=== PATIENT | male | born 1945 | race Two or more races ===

== ENCOUNTER 2020-02-20 04:41 | Inpatient (IN) | payer MEDICARE, OTHER ==
[~2020-02-20] VITALS: Ht 170.2 cm; Wt 95.7 kg
--- NOTE | 2020-02-20 05:12 | NUR ---
at bedside for assessment
[2020-02-20] MEDS ORDERED: CITA40TA11 PO (05:23)
[2020-02-20] MEDS ORDERED: NAPR-1009 PO (05:23)
[2020-02-20] MEDS ORDERED: ASPI81TA31 PO (05:23)
[2020-02-20] MEDS ORDERED: POTA25PA PO (05:23)
[2020-02-20] MEDS ORDERED: OMEP20TA5 PO (05:23)
[2020-02-20] MEDS ORDERED: IV NORMAL SALINE 1000 ML BAG IV ONE (05:45)
[2020-02-20] MEDS ORDERED: DEXAMETHASONE SOD PHOSPHATE 4 MG INJ IV ONE (06:30)
[2020-02-20] MEDS ORDERED: DEXAMETHASONE SOD PHOSPHATE 10 MG INJ ONE (06:31)
[2020-02-20 06:55] LABS: BASOPHILS % (AUTO) 0.5 % (0.0-2.0); EOSINOPHILS # (AUTO) 0.1 K/uL (0.0-0.7); EOSINOPHILS % (AUTO) 0.7 % (0.0-7.0); HEMATOCRIT 41.9 % (36.7-47.1); HEMOGLOBIN 14.4 g/dL (12.5-16.3); LYMPHOCYTES # (AUTO) 0.3 K/uL (20.0-40.0); LYMPHOCYTES % (AUTO) 3.7 % (20.5-51.5); MEAN CORPUSCULAR HGB CONC 34 g/dL (32.5-36.3); MEAN CORPUSCULAR VOLUME 93.4 fL (73.0-96.2); MONOCYTES # (AUTO) 0.4 K/uL (2.0-10.0); NEUTROPHILS # (AUTO) 6.7 K/uL (1.8-8.9); NEUTROPHILS % (AUTO) 90.1 % (38.5-71.5); PLATELET COUNT (AUTO) 158 K/uL (152-348); RED BLOOD CELL COUNT(AUTO) 4.49 MIL/uL (4.06-5.63); WHITE BLOOD COUNT (AUTO) 7.5 K/uL (3.6-10.2)
[2020-02-20] MEDS ORDERED: AZITHROMYCIN IV 500 MG in IV DEXTROSE 5% 250 ML IV ONE (07:00)
[2020-02-20] MEDS ORDERED: CEFTRIAXONE 1 G in IV DEXTROSE 5% 50 ML IV ONE (07:00)
--- NOTE | 2020-02-20 07:09 | NUR ---
Patient put on 3L Nasal Canula - Saturating at 93% - Safety measures in place - No acute distress
[2020-02-20 07:27] LABS: BILIRUBIN,DIRECT 0.2 mg/dL (0.0-0.2); BILIRUBIN,TOTAL 0.4 mg/dL (0.2-1.0); POTASSIUM 3.7 mmol/L (3.5-5.1); TOTAL PROTEIN, SERUM 7.3 g/dL (6.4-8.2)
--- NOTE | 2020-02-20 08:00 | NUR ---
Pt resting in rney with NAD noted.
[2020-02-20] MEDS ORDERED: AZITHROMYCIN 500MG/ D5W 250ML IVPB **ER PYXIS ONLY IV ONE (08:03)
[2020-02-20] MEDS ORDERED: CEFTRIAXONE /D5W 50ML IVPB **ER PYXIS IV ONE (08:03)
[2020-02-20] MEDS ORDERED: ENOXAPARIN SODIUM 80 MG/0.8 ML DISP.SYRIN SQ ONE ×2 (09:00→09:57)
--- NOTE | 2020-02-20 12:00 | NUR ---
Pt eating lunch, NAD noted.
--- NOTE | 2020-02-20 13:45 | NUR ---
Per ER admitting, still waiting for auth from pt's HMO for admission.
--- NOTE | 2020-02-20 14:00 | NUR ---
Dr. Lock spoke with Keisha Jenkins and pt was accepted for tele admission. No tele beds available, pt will be placed in a trans bed and held in ER.
--- NOTE | 2020-02-20 16:00 | NUR ---
Pt resting with NAD noted.
[2020-02-20] MEDS ORDERED: ACETAMINOPHEN 325 MG TABLET ONE (17:47)
--- NOTE | 2020-02-20 17:50 | NUR ---
Pt c/o headache, medicated with Tylenol prn as ordered.
--- NOTE | 2020-02-20 19:16 | NUR ---
Patient noted on three liters of oxygen via nasal cannula saturating 95%
--- NOTE | 2020-02-21 01:17 | NUR ---
Patient noted resting in bed, no sings of distress noted
--- NOTE | 2020-02-21 07:20 | NUR ---
Pt was desaturating while on NC, so pt placed on NRM at 15 lpm. Saturation improved.
[2020-02-21 07:53] LABS: HEMATOCRIT 40.9 % (36.7-47.1); HEMOGLOBIN 13.9 g/dL (12.5-16.3); LYMPHOCYTES # (AUTO) 0.3 K/uL (20.0-40.0); LYMPHOCYTES % (AUTO) 2.7 % (20.5-51.5); MEAN CORPUSCULAR HEMOGLOBIN 31.9 uug (23.8-33.4); MEAN CORPUSCULAR HGB CONC 34 g/dL (32.5-36.3); MEAN CORPUSCULAR VOLUME 93.6 fL (73.0-96.2); MONOCYTES # (AUTO) 0.4 K/uL (2.0-10.0); MONOCYTES % (AUTO) 3.2 % (0.0-11.0); NEUTROPHILS # (AUTO) 11.9 K/uL (1.8-8.9); NEUTROPHILS % (AUTO) 94.1 % (38.5-71.5); PLATELET COUNT (AUTO) 184 K/uL (152-348); RED BLOOD CELL COUNT(AUTO) 4.37 MIL/uL (4.06-5.63); WHITE BLOOD COUNT (AUTO) 12.7 K/uL (3.6-10.2)
[2020-02-21] MEDS ORDERED: ASPIRIN 81 MG TAB.CHEW ONE (08:26)
[2020-02-21] MEDS ORDERED: ENOXAPARIN SODIUM 40 MG/0.4 ML DISP.SYRIN SQ ONE (08:26)
[2020-02-21] MEDS ORDERED: AZITHROMYCIN 250 MG TABLET ONE (08:27)
[2020-02-21] MEDS ORDERED: PANTOPRAZOLE SODIUM 40 MG TABLET.DR PO ONE (08:27)
[2020-02-21] MEDS ORDERED: DEXAMETHASONE SOD PHOSPHATE 4 MG INJ ONE (08:27)
[2020-02-21 08:28] LABS: BILIRUBIN,TOTAL 0.4 mg/dL (0.2-1.0); MAGNESIUM 1.9 mg/dL (1.8-2.4); POTASSIUM 4.2 mmol/L (3.5-5.1); TOTAL PROTEIN, SERUM 7.5 g/dL (6.4-8.2)
[2020-02-21 08:31] LABS: THYROID STIMULATING HORMONE 0.554 mIU/mL (0.358-3.740)
[2020-02-21] MEDS ORDERED: Medication Not On Formulary EA (Omeprazole 20 MG) PO SCH (09:00)
[2020-02-21] MEDS ORDERED: CEFTRIAXONE /D5W 50ML IVPB **ER PYXIS IV ONE (09:08)
[2020-02-21] MEDS: ENOXAPARIN SODIUM 40 MG/0.4 ML DISP.SYRIN SQ SCH (09:44)
[2020-02-21] MEDS: PANTOPRAZOLE SODIUM 40 MG TABLET.DR PO SCH (09:45)
[2020-02-21] MEDS: CEFTRIAXONE 1 G in IV DEXTROSE 5% 50 ML IV SCH (09:45)
--- NOTE | 2020-02-21 09:45 | NUR ---
Pt given Breakfast tray. No current complaints, no distress noted. Pt desaturates to 70's when mask off (eg eating), but climbs back to mid 90's when replaced.
[2020-02-21] MEDS: DEXAMETHASONE SOD PHOSPHATE 4 MG INJ IV SCH (09:47)
[2020-02-21] MEDS: ASPIRIN 81 MG TAB.CHEW PO SCH (09:47)
[2020-02-21] MEDS: AZITHROMYCIN 250 MG TABLET PO SCH (09:48)
[2020-02-21] MEDS ORDERED: ACETAMINOPHEN 325 MG TABLET ONE (13:20)
[2020-02-21] MEDS ORDERED: REMDESIVIR (CHARGED) 200 MG in IV NORMAL SALINE 210 ML IV ONE (14:00)
[2020-02-21] MEDS: ACETAMINOPHEN 325 MG TABLET PO PRN (14:03)
--- NOTE | 2020-02-21 14:35 | NUR ---
Pt c/o CP when eating and/or coughing, 9-10/10, same as at breakfast. Administered 650 mg Tylenol, pain dropped to 8/10. Spoke with CHRISTINA Valdes, she'll put in orders including EKG, done.
--- NOTE | 2020-02-21 19:14 | NUR ---
recieved patient in shift report
[2020-02-22 06:30] LABS: HEMATOCRIT 40.2 % (36.7-47.1); HEMOGLOBIN 13.5 g/dL (12.5-16.3); LYMPHOCYTES # (AUTO) 0.3 K/uL (20.0-40.0); LYMPHOCYTES % (AUTO) 2.6 % (20.5-51.5); MEAN CORPUSCULAR HEMOGLOBIN 31.2 uug (23.8-33.4); MEAN CORPUSCULAR HGB CONC 34 g/dL (32.5-36.3); MEAN CORPUSCULAR VOLUME 92.9 fL (73.0-96.2); MONOCYTES # (AUTO) 0.8 K/uL (2.0-10.0); MONOCYTES % (AUTO) 6.3 % (0.0-11.0); NEUTROPHILS # (AUTO) 11.6 K/uL (1.8-8.9); NEUTROPHILS % (AUTO) 91.1 % (38.5-71.5); PLATELET COUNT (AUTO) 202 K/uL (152-348); RED BLOOD CELL COUNT(AUTO) 4.33 MIL/uL (4.06-5.63); WHITE BLOOD COUNT (AUTO) 12.8 K/uL (3.6-10.2)
[2020-02-22 06:55] LABS: BILIRUBIN,DIRECT 0.1 mg/dL (0.0-0.2); BILIRUBIN,TOTAL 0.7 mg/dL (0.2-1.0); POTASSIUM 4.5 mmol/L (3.5-5.1); TOTAL PROTEIN, SERUM 7.3 g/dL (6.4-8.2)
[2020-02-22] MEDS ORDERED: PANTOPRAZOLE SODIUM 40 MG TABLET.DR PO ONE (07:27)
[2020-02-22] MEDS: PANTOPRAZOLE SODIUM 40 MG TABLET.DR PO SCH (07:34)
[2020-02-22] MEDS ORDERED: ACETAMINOPHEN 325 MG TABLET ONE ×3 (07:52→21:27)
[2020-02-22] MEDS ORDERED: CEFTRIAXONE /D5W 50ML IVPB **ER PYXIS IV ONE (07:53)
[2020-02-22] MEDS: CEFTRIAXONE 1 G in IV DEXTROSE 5% 50 ML IV SCH (07:58)
[2020-02-22] MEDS: ACETAMINOPHEN 325 MG TABLET PO PRN ×3 (07:59→21:55)
--- NOTE | 2020-02-22 08:11 | NUR ---
PT IS RESTING IN BED. NO S/S OF ACUTE DISTRESS.
[2020-02-22] MEDS ORDERED: DEXAMETHASONE SOD PHOSPHATE 10 MG INJ ONE (08:27)
[2020-02-22] MEDS ORDERED: ASPIRIN 81 MG TAB.CHEW ONE (08:28)
[2020-02-22] MEDS ORDERED: ENOXAPARIN SODIUM 40 MG/0.4 ML DISP.SYRIN SQ ONE (08:28)
[2020-02-22] MEDS ORDERED: AZITHROMYCIN 250 MG TABLET ONE (08:28)
[2020-02-22] MEDS: AZITHROMYCIN 250 MG TABLET PO SCH (09:26)
[2020-02-22] MEDS: DEXAMETHASONE SOD PHOSPHATE 4 MG INJ IV SCH (09:26)
[2020-02-22] MEDS: ASPIRIN 81 MG TAB.CHEW PO SCH (09:26)
[2020-02-22] MEDS: ENOXAPARIN SODIUM 40 MG/0.4 ML DISP.SYRIN SQ SCH (09:28)
--- NOTE | 2020-02-22 10:56 | NUR ---
PT IS RESTING IN BED. ТАТЬЯНА MCKNIGHT NP EVALUATED THE PT.
[2020-02-22] MEDS: MORPHINE SULFATE 2 MG/1 ML DISP.SYRIN IV PRN (11:15)
[2020-02-22] MEDS: ONDANSETRON 4 MG/2 ML VIAL IV PRN (11:16)
[2020-02-22] MEDS ORDERED: ONDANSETRON 4 MG/2 ML VIAL ONE (11:22)
[2020-02-22] MEDS ORDERED: REMDESIVIR (CHARGED) 100 MG in IV NORMAL SALINE 230 ML IV SCH (14:00)
[2020-02-22] MEDS: REMDESIVIR (CHARGED) 100 MG in IV NORMAL SALINE 100 ML IV SCH (14:29)
--- NOTE | 2020-02-22 19:14 | NUR ---
Received report from YAZ Soriano for continuity of care.
[2020-02-22] MEDS: ALBUTEROL SULFATE 8 GM HFA.AER.AD IH PRN (20:08)
--- NOTE | 2020-02-22 21:33 | NUR ---
Patient repositioned on right side instead of semi-fowlers. Patient oxygenation went from 85% to 94% on NRB/NC combo. Will continue to monitor patient and reposition as needed.
[2020-02-23] MEDS: ALBUTEROL SULFATE 8 GM HFA.AER.AD IH PRN (01:02)
[2020-02-23] MEDS: MORPHINE SULFATE 2 MG/1 ML DISP.SYRIN IV PRN (01:07)
[2020-02-23] MEDS: ONDANSETRON 4 MG/2 ML VIAL IV PRN (01:08)
[2020-02-23] MEDS ORDERED: ONDANSETRON 4 MG/2 ML VIAL ONE (01:11)
[2020-02-23] MEDS ORDERED: MORPHINE SULFATE 2 MG/1 ML DISP.SYRIN ONE (01:12)
--- NOTE | 2020-02-23 05:40 | NUR ---
JUDY Jaime found patient on floor with urinal in his hand. Patient had NRB, and NC Patient unable to verbalize events. Roger Peterson DNP made aware. Requested order for a CT Head, to r/o acute bleed. Patient unable to answer questions efficiently after incident.
[2020-02-23 06:06] LABS: BASOPHILS # (AUTO) 0.1 K/uL (0.0-8.0); BASOPHILS % (AUTO) 0.7 % (0.0-2.0); HEMATOCRIT 43.6 % (36.7-47.1); HEMOGLOBIN 14.6 g/dL (12.5-16.3); LYMPHOCYTES # (AUTO) 1.7 K/uL (20.0-40.0); LYMPHOCYTES % (AUTO) 13.7 % (20.5-51.5); MEAN CORPUSCULAR HEMOGLOBIN 31.8 uug (23.8-33.4); MEAN CORPUSCULAR HGB CONC 33 g/dL (32.5-36.3); MEAN CORPUSCULAR VOLUME 95.2 fL (73.0-96.2); MONOCYTES # (AUTO) 0.9 K/uL (2.0-10.0); MONOCYTES % (AUTO) 7.5 % (0.0-11.0); NEUTROPHILS # (AUTO) 9.8 K/uL (1.8-8.9); NEUTROPHILS % (AUTO) 78.1 % (38.5-71.5); PLATELET COUNT (AUTO) 243 K/uL (152-348); RED BLOOD CELL COUNT(AUTO) 4.58 MIL/uL (4.06-5.63); WHITE BLOOD COUNT (AUTO) 12.6 K/uL (3.6-10.2)
[2020-02-23 06:12] LABS: BILIRUBIN,DIRECT 0.2 mg/dL (0.0-0.2); BILIRUBIN,TOTAL 0.6 mg/dL (0.2-1.0); CREATININE 1.2 mg/dL (0.6-1.3); POTASSIUM 3.8 mmol/L (3.5-5.1); TOTAL PROTEIN, SERUM 7.6 g/dL (6.4-8.2)
--- NOTE | 2020-02-23 06:49 | NUR ---
Spoke with Roger Peterson DNP for request to place patient on BI-PAP. There are no available versaflow machines. Requested to see if we can retrieve more for utilization.
[2020-02-23] MEDS: PANTOPRAZOLE SODIUM 40 MG TABLET.DR PO SCH (07:00)
--- NOTE | 2020-02-23 07:07 | NUR ---
Report given to YAZ Soriano for continuity of care.
[2020-02-23] MEDS ORDERED: PANTOPRAZOLE SODIUM 40 MG TABLET.DR PO ONE (07:53)
[2020-02-23] MEDS ORDERED: DEXAMETHASONE SOD PHOSPHATE 10 MG INJ ONE (07:58)
[2020-02-23] MEDS ORDERED: ASPIRIN 81 MG TAB.CHEW ONE (07:58)
[2020-02-23] MEDS ORDERED: AZITHROMYCIN 250 MG TABLET ONE (07:59)
[2020-02-23] MEDS ORDERED: ENOXAPARIN SODIUM 40 MG/0.4 ML DISP.SYRIN SQ ONE (07:59)
[2020-02-23] MEDS: CEFTRIAXONE 1 G in IV DEXTROSE 5% 50 ML IV SCH (08:00)
[2020-02-23] MEDS ORDERED: CEFTRIAXONE /D5W 50ML IVPB **ER PYXIS IV ONE (08:10)
[2020-02-23] MEDS: ENOXAPARIN SODIUM 40 MG/0.4 ML DISP.SYRIN SQ SCH (09:12)
[2020-02-23] MEDS: ASPIRIN 81 MG TAB.CHEW PO SCH (09:12)
[2020-02-23] MEDS: AZITHROMYCIN 250 MG TABLET PO SCH (09:12)
[2020-02-23] MEDS: DEXAMETHASONE SOD PHOSPHATE 4 MG INJ IV SCH (09:12)
--- NOTE | 2020-02-23 10:11 | NUR ---
CHRISTINA MCKNIGHT EVALUATED THE PT. PT IS RESTING IN BED COMFORTABLY. CONTINUE TO MONITOR THE PT.
--- NOTE | 2020-02-23 11:17 | NUR ---
0700 PT PLACED ON BIPAP /8/18/100%. SPO2 WITHIN NORMAL LIMITS ON BIPAP 1030 BIPAP REMOVED AND PLACED ON 100% NRB MASK. SPO2 AROUND 80-85% 1045 PT PLACED ON VAPOTHERM 100% 40L WITH 100% NRB MASK AND SPO2 BACK WITHIN NORMAL RANGE. PT IS AWAKE ALERT RESPONSIVE. WILL CONTINUE TO MONITOR
[2020-02-23] MEDS: REMDESIVIR (CHARGED) 100 MG in IV NORMAL SALINE 100 ML IV SCH (14:50)
--- NOTE | 2020-02-23 18:58 | NUR ---
report given to taurus taylor.
[2020-02-24 06:02] LABS: WHITE BLOOD COUNT (AUTO) 9.5 K/uL (3.6-10.2)
[2020-02-24 06:03] LABS: BASOPHILS # (AUTO) 0.1 K/uL (0.0-8.0); BASOPHILS % (AUTO) 0.9 % (0.0-2.0); HEMATOCRIT 40.4 % (36.7-47.1); LYMPHOCYTES # (AUTO) 0.4 K/uL (20.0-40.0); LYMPHOCYTES % (AUTO) 4.4 % (20.5-51.5); MEAN CORPUSCULAR HGB CONC 35 g/dL (32.5-36.3); MEAN CORPUSCULAR VOLUME 92.5 fL (73.0-96.2); MONOCYTES # (AUTO) 0.6 K/uL (2.0-10.0); MONOCYTES % (AUTO) 6.6 % (0.0-11.0); NEUTROPHILS # (AUTO) 8.4 K/uL (1.8-8.9); NEUTROPHILS % (AUTO) 88.1 % (38.5-71.5); PLATELET COUNT (AUTO) 199 K/uL (152-348); RED BLOOD CELL COUNT(AUTO) 4.36 MIL/uL (4.06-5.63)
[2020-02-24 06:19] LABS: BILIRUBIN,DIRECT 0.2 mg/dL (0.0-0.2); BILIRUBIN,TOTAL 0.6 mg/dL (0.2-1.0); CREATININE 0.9 mg/dL (0.6-1.3); POTASSIUM 4.6 mmol/L (3.5-5.1); TOTAL PROTEIN, SERUM 6.8 g/dL (6.4-8.2)
--- NOTE | 2020-02-24 08:00 | NUR ---
Pt resting in bed, pt. c/o FRAGOSO -- pain radiates down back of neck, no distress noted.
[2020-02-24] MEDS: PANTOPRAZOLE SODIUM 40 MG TABLET.DR PO SCH (08:15)
[2020-02-24] MEDS ORDERED: ASPIRIN 81 MG TAB.CHEW ONE (09:12)
[2020-02-24] MEDS ORDERED: ENOXAPARIN SODIUM 40 MG/0.4 ML DISP.SYRIN SQ ONE (09:12)
[2020-02-24] MEDS ORDERED: CEFTRIAXONE /D5W 50ML IVPB **ER PYXIS IV ONE (09:13)
[2020-02-24] MEDS ORDERED: AZITHROMYCIN 250 MG TABLET ONE (09:13)
[2020-02-24] MEDS ORDERED: DEXAMETHASONE SOD PHOSPHATE 4 MG INJ ONE (09:13)
[2020-02-24] MEDS: ASPIRIN 81 MG TAB.CHEW PO SCH (09:45)
[2020-02-24] MEDS: AZITHROMYCIN 250 MG TABLET PO SCH (09:45)
[2020-02-24] MEDS: DEXAMETHASONE SOD PHOSPHATE 4 MG INJ IV SCH (09:45)
[2020-02-24] MEDS: ENOXAPARIN SODIUM 40 MG/0.4 ML DISP.SYRIN SQ SCH (09:45)
[2020-02-24] MEDS: MORPHINE SULFATE 2 MG/1 ML DISP.SYRIN IV PRN (12:42)
[2020-02-24] MEDS ORDERED: MORPHINE SULFATE 2 MG/1 ML DISP.SYRIN ONE (12:55)
[2020-02-24] MEDS: REMDESIVIR (CHARGED) 100 MG in IV NORMAL SALINE 100 ML IV SCH (14:23)
--- NOTE | 2020-02-24 14:38 | NUR ---
Placed pt on bedpan, 1 solid BM.
--- NOTE | 2020-02-24 19:00 | NUR ---
Received report from Axel Nieves RN.
--- NOTE | 2020-02-25 06:52 | NUR ---
Report given to Bo brooks.
[2020-02-25] MEDS: PANTOPRAZOLE SODIUM 40 MG TABLET.DR PO SCH (07:15)
[2020-02-25] MEDS ORDERED: PANTOPRAZOLE SODIUM 40 MG TABLET.DR PO ONE (07:18)
[2020-02-25 07:23] LABS: BASOPHILS # (AUTO) 0.1 K/uL (0.0-8.0); BASOPHILS % (AUTO) 0.6 % (0.0-2.0); EOSINOPHILS % (AUTO) 0.1 % (0.0-7.0); HEMATOCRIT 41.3 % (36.7-47.1); HEMOGLOBIN 13.9 g/dL (12.5-16.3); LYMPHOCYTES # (AUTO) 0.4 K/uL (20.0-40.0); MEAN CORPUSCULAR HEMOGLOBIN 31.2 uug (23.8-33.4); MEAN CORPUSCULAR HGB CONC 34 g/dL (32.5-36.3); MONOCYTES # (AUTO) 0.8 K/uL (2.0-10.0); MONOCYTES % (AUTO) 5.8 % (0.0-11.0); NEUTROPHILS # (AUTO) 12.4 K/uL (1.8-8.9); NEUTROPHILS % (AUTO) 90.5 % (38.5-71.5); PLATELET COUNT (AUTO) 213 K/uL (152-348); RED BLOOD CELL COUNT(AUTO) 4.44 MIL/uL (4.06-5.63); WHITE BLOOD COUNT (AUTO) 13.7 K/uL (3.6-10.2)
[2020-02-25 08:05] LABS: BILIRUBIN,DIRECT 0.2 mg/dL (0.0-0.2); BILIRUBIN,TOTAL 0.7 mg/dL (0.2-1.0); CREATININE 0.9 mg/dL (0.6-1.3); TOTAL PROTEIN, SERUM 6.7 g/dL (6.4-8.2)
--- NOTE | 2020-02-25 08:25 | NUR ---
DR. POP ENGLAND FROM IMAGING CALLED AND SAID THAT COMPARED TO LAST IMAGES, PT'S UPPER MEDIASTINAL CONTOUR HAS WIDENED AND SHE SUGGESTED CHEST CT.
--- NOTE | 2020-02-25 08:29 | NUR ---
Pt is resting in bed comfortably. Abdullahi PROGRESS MAN was called according to request of radiology Kiley Burger to report AP radiology of the chest.
[2020-02-25] MEDS ORDERED: ASPIRIN 81 MG TAB.CHEW ONE (08:49)
[2020-02-25] MEDS ORDERED: DEXAMETHASONE SOD PHOSPHATE 10 MG INJ ONE (08:49)
[2020-02-25] MEDS ORDERED: ENOXAPARIN SODIUM 40 MG/0.4 ML DISP.SYRIN SQ ONE (08:50)
[2020-02-25] MEDS: DEXAMETHASONE SOD PHOSPHATE 4 MG INJ IV SCH (08:51)
[2020-02-25] MEDS: ASPIRIN 81 MG TAB.CHEW PO SCH (08:51)
[2020-02-25] MEDS: ENOXAPARIN SODIUM 40 MG/0.4 ML DISP.SYRIN SQ SCH (09:02)
[2020-02-25] MEDS: REMDESIVIR (CHARGED) 100 MG in IV NORMAL SALINE 100 ML IV SCH (14:00)
--- NOTE | 2020-02-25 14:48 | NUR ---
DR CHILDS EVALUATED THE PT.
--- NOTE | 2020-02-25 16:39 | NUR ---
REPORT WAS GIVEN TO SHIPPING ASSISTANT. PT WAS TRANSFERED TO ROOM #314.
--- NOTE | 2020-02-25 17:00 | NUR ---
RECEIVED PATIENT FROM ED, TRANSPORTED VIA HOSPITAL BED. VSS. PATIENT AWAKE, ALERT AND ORIENTED X 3. ON HIGH FLOW NC 40L O2, SATURATING 94-95%. BELONGINGS AT BEDSIDE AND CONFIRMED ON BELONGINGS LIST. NO S/S OF DISTRESS NOTED. ORIENTED PATIENT TO LOCATION OF TV REMOTE, CALL LIGHT AND URINAL AT BEDSIDE. SAFETY PRECAUTIONS IN PLACE. ALL NEEDS MET. WILL CONTINUE TO MONITOR.
[2020-02-25 17:08] VITALS: BP 121/73
[2020-02-25 20:41] VITALS: BP 106/70
[2020-02-25] MEDS: ACETAMINOPHEN 325 MG TABLET PO PRN (23:07)
[2020-02-26 01:44] VITALS: BP 94/56
[2020-02-26 06:34] VITALS: BP 115/63
[2020-02-26] MEDS: PANTOPRAZOLE SODIUM 40 MG TABLET.DR PO SCH (06:41)
[2020-02-26 07:23] LABS: CREATININE 0.9 mg/dL (0.6-1.3)
[2020-02-26 07:35] LABS: BASOPHILS % (AUTO) 0.1 % (0.0-2.0); EOSINOPHILS % (AUTO) 0.2 % (0.0-7.0); HEMATOCRIT 43.1 % (36.7-47.1); HEMOGLOBIN 14.1 g/dL (12.5-16.3); LYMPHOCYTES # (AUTO) 0.4 K/uL (20.0-40.0); LYMPHOCYTES % (AUTO) 2.9 % (20.5-51.5); MEAN CORPUSCULAR HEMOGLOBIN 30.4 uug (23.8-33.4); MEAN CORPUSCULAR HGB CONC 33 g/dL (32.5-36.3); MEAN CORPUSCULAR VOLUME 93.1 fL (73.0-96.2); MONOCYTES # (AUTO) 0.7 K/uL (2.0-10.0); MONOCYTES % (AUTO) 4.4 % (0.0-11.0); NEUTROPHILS # (AUTO) 14.3 K/uL (1.8-8.9); NEUTROPHILS % (AUTO) 92.4 % (38.5-71.5); PLATELET COUNT (AUTO) 233 K/uL (152-348); RED BLOOD CELL COUNT(AUTO) 4.63 MIL/uL (4.06-5.63); WHITE BLOOD COUNT (AUTO) 15.5 K/uL (3.6-10.2)
[2020-02-26 08:00] VITALS: BP 122/53
[2020-02-26] MEDS: ASPIRIN 81 MG TAB.CHEW PO SCH (08:39)
[2020-02-26] MEDS: DEXAMETHASONE SOD PHOSPHATE 4 MG INJ IV SCH (08:40)
[2020-02-26] MEDS: ENOXAPARIN SODIUM 40 MG/0.4 ML DISP.SYRIN SQ SCH (08:40)
[2020-02-26] MEDS: CEFTRIAXONE 1 G in IV DEXTROSE 5% 50 ML IV SCH (10:51)
[2020-02-26 12:00] VITALS: BP 116/68
--- NOTE | 2020-02-26 17:52 | NUR ---
patient is alert, oriented x3, verbally responsive, continue on high flow and nonrebreather, able to transfer himself with one person assist from bed to bedside commode, and vise versa, tolerated meals fairly without nonrebreather mask.
[2020-02-26 20:31] VITALS: BP 120/69
--- NOTE | 2020-02-26 21:43 | NUR ---
Received pt in bed sleeping, easily arousable. patient monitor displayed sinus dasha low as 31. Notified Denver Glez NP. Stat EKG ordered. Results read back to praveen Glez HR currently 61 on the monitor. No new orders at this time. Will continue to monitor on tele per IT QUALITY ANALYST orders
[2020-02-27 00:26] VITALS: BP 121/71
[2020-02-27 04:25] VITALS: BP 136/72
[2020-02-27] MEDS: PANTOPRAZOLE SODIUM 40 MG TABLET.DR PO SCH (06:22)
--- NOTE | 2020-02-27 06:40 | NUR ---
Pt slept intermittently. No s/s of acute distress noted. Afebrile. Pt on High Flow and NRBM O2 93-95%. Pt removes high flow NC intermittently, O2 saturation drops to 86%. Provided pt with education in regards to using both oxygen sources and benefits of keeping them on, pt verbalizes understanding. monitoring specialist on, Sinus dasha high 50s and NSR throughout night. Right hand IV patent and intact. Safety measures and isolation precautions observed and in place. will endorse to oncoming shift.
[2020-02-27 06:49] LABS: POTASSIUM 3.9 mmol/L (3.5-5.1)
[2020-02-27 06:53] LABS: BASOPHILS % (AUTO) 0.1 % (0.0-2.0); EOSINOPHILS % (AUTO) 0.1 % (0.0-7.0); HEMATOCRIT 43.6 % (36.7-47.1); HEMOGLOBIN 14.5 g/dL (12.5-16.3); LYMPHOCYTES # (AUTO) 0.4 K/uL (20.0-40.0); LYMPHOCYTES % (AUTO) 2.2 % (20.5-51.5); MEAN CORPUSCULAR HGB CONC 33 g/dL (32.5-36.3); MEAN CORPUSCULAR VOLUME 93.3 fL (73.0-96.2); MONOCYTES # (AUTO) 0.5 K/uL (2.0-10.0); MONOCYTES % (AUTO) 2.9 % (0.0-11.0); NEUTROPHILS # (AUTO) 17.4 K/uL (1.8-8.9); NEUTROPHILS % (AUTO) 94.7 % (38.5-71.5); PLATELET COUNT (AUTO) 228 K/uL (152-348); RED BLOOD CELL COUNT(AUTO) 4.67 MIL/uL (4.06-5.63); WHITE BLOOD COUNT (AUTO) 18.3 K/uL (3.6-10.2)
--- NOTE | 2020-02-27 08:30 | NUR ---
Pt not tolerating HI FLOW. Pt restless and gasping for air with labored breathing. DENTON Goff saw patient and wants pt on BIPAP.
[2020-02-27] MEDS: ASPIRIN 81 MG TAB.CHEW PO SCH (08:59)
[2020-02-27] MEDS: DEXAMETHASONE SOD PHOSPHATE 4 MG INJ IV SCH (08:59)
[2020-02-27] MEDS: ENOXAPARIN SODIUM 40 MG/0.4 ML DISP.SYRIN SQ SCH (09:00)
[2020-02-27] MEDS: CEFTRIAXONE 1 G in IV DEXTROSE 5% 50 ML IV SCH (09:00)
--- NOTE | 2020-02-27 09:00 | NUR ---
Pt put on BIPAP 04/10 rate of 18 as per Marco A CHAWLA. 02 sat 97%. Will continue to monitor patient. Addendum: 02/27/20 at 1858 by MAGDY HO RN FIO2 of 100%
[2020-02-27 11:50] VITALS: BP 103/71
[2020-02-27 16:15] VITALS: BP 114/63
--- NOTE | 2020-02-27 17:00 | NUR ---
Pt has been tolerating BIPAP and more comfortable since BIPAP was put on this AM. Pt not restless and breathing not labored. Call light is within reach.
--- NOTE | 2020-02-27 18:42 | NUR ---
Clarified with Dr peters if convalescent plasma is still needed lab states that convalescent IND form signed by patient's initials. Per DR Peters ok to proceed with Convalescent Plasma.
[2020-02-27] MEDS: ENSURE ENLIVE (VAN) 240 ML LIQUID PO SCH (20:30)
[2020-02-27 20:32] VITALS: BP 141/75
[2020-02-28 00:38] VITALS: BP 125/77
[2020-02-28] MEDS: MORPHINE SULFATE 2 MG/1 ML DISP.SYRIN IV PRN (02:47)
[2020-02-28 04:00] VITALS: BP 122/76
[2020-02-28] MEDS: PANTOPRAZOLE SODIUM 40 MG TABLET.DR PO SCH (05:37)
[2020-02-28 06:22] LABS: BASOPHILS % (AUTO) 0.1 % (0.0-2.0); EOSINOPHILS # (AUTO) 0.1 K/uL (0.0-0.7); EOSINOPHILS % (AUTO) 0.3 % (0.0-7.0); HEMATOCRIT 45.4 % (36.7-47.1); LYMPHOCYTES # (AUTO) 0.4 K/uL (20.0-40.0); LYMPHOCYTES % (AUTO) 2.2 % (20.5-51.5); MEAN CORPUSCULAR HEMOGLOBIN 31.1 uug (23.8-33.4); MEAN CORPUSCULAR HGB CONC 33 g/dL (32.5-36.3); MEAN CORPUSCULAR VOLUME 94.3 fL (73.0-96.2); MONOCYTES # (AUTO) 0.6 K/uL (2.0-10.0); MONOCYTES % (AUTO) 3.5 % (0.0-11.0); NEUTROPHILS # (AUTO) 17.3 K/uL (1.8-8.9); NEUTROPHILS % (AUTO) 93.9 % (38.5-71.5); PLATELET COUNT (AUTO) 196 K/uL (152-348); RED BLOOD CELL COUNT(AUTO) 4.81 MIL/uL (4.06-5.63); WHITE BLOOD COUNT (AUTO) 18.4 K/uL (3.6-10.2)
[2020-02-28 06:36] LABS: BILIRUBIN,DIRECT 0.2 mg/dL (0.0-0.2); BILIRUBIN,TOTAL 0.5 mg/dL (0.2-1.0); CREATININE 0.9 mg/dL (0.6-1.3); POTASSIUM 4.7 mmol/L (3.5-5.1); TOTAL PROTEIN, SERUM 6.7 g/dL (6.4-8.2)
[2020-02-28] MEDS: ENSURE ENLIVE (VAN) 240 ML LIQUID PO SCH ×2 (09:29→17:44)
[2020-02-28] MEDS: ASPIRIN 81 MG TAB.CHEW PO SCH (09:29)
[2020-02-28] MEDS: DEXAMETHASONE SOD PHOSPHATE 4 MG INJ IV SCH (09:30)
[2020-02-28] MEDS: ENOXAPARIN SODIUM 40 MG/0.4 ML DISP.SYRIN SQ SCH (09:30)
[2020-02-28] MEDS: CEFTRIAXONE 1 G in IV DEXTROSE 5% 50 ML IV SCH (09:36)
--- NOTE | 2020-02-28 10:00 | NUR ---
Pt wanted water. Pt currently on BIPAP with sat 96% as ordered. BIPAP taken off and monitored pt on pulse ox in order for patient to drink some water. Pt desaturates to 82 % within 2 mins of having BIPAP off. Put BIPAP back and tolerating with o2 sat of 96%.
[2020-02-28 11:27] VITALS: BP 129/81
[2020-02-28 16:18] VITALS: BP 124/74
[2020-02-28] MEDS ORDERED: BISACODYL 10 MG SUPP.RECT RC PRN (16:45)
--- NOTE | 2020-02-28 19:30 | NUR ---
RECEIVED PT AWAKE, ALERT AND ORIENTEDX3. PT IN NO ACUTE DISTRESS. PT COUGHING. IV INTACT. PT ON HIGH FLOW OXYGEN. PT IN NO ACUTE DISTRESS. SAFETY AND COMFORT PROVIDED. WILL CONTINUE TO MONITOR.
[2020-02-28 20:00] VITALS: BP 129/75
[2020-02-28] MEDS: ACETAMINOPHEN 325 MG TABLET PO PRN (21:51)
[2020-02-29 00:12] VITALS: BP 120/60
[2020-02-29] MEDS: MORPHINE SULFATE 2 MG/1 ML DISP.SYRIN IV PRN ×2 (02:30→23:35)
[2020-02-29 04:00] VITALS: BP 121/72
[2020-02-29] MEDS: PANTOPRAZOLE SODIUM 40 MG TABLET.DR PO SCH (06:11)
[2020-02-29] MEDS: ACETAMINOPHEN 325 MG TABLET PO PRN (06:12)
--- NOTE | 2020-02-29 06:12 | NUR ---
PT SLEPT INTERMITTENTLY. PT IN NO ACUTE DISTRESS. PRESCRIBED MEDICATION GIVEN AND PT TOLERATED IT WELL. IV INTACT. PT GIVEN TYLENOL 650 MG PRN AT 2151HAND 0612H . MORPHINE PRN GIVEN AT 0230h . PT TOLERATED IT WELL. PT TURNED AND REPOSITIONED. PT CAN MAKE HIS NEEDS KNOWN. SAFETY AND COMFORT PROVIDED. ALL NEEDS ARE MET. WILL ENDORSE TO INCOMING NURSE FOR CONTINUITY OF CARE.
[2020-02-29 06:40] LABS: EOSINOPHILS % (AUTO) 0.2 % (0.0-7.0); HEMATOCRIT 43.3 % (36.7-47.1); HEMOGLOBIN 14.6 g/dL (12.5-16.3); LYMPHOCYTES # (AUTO) 0.3 K/uL (20.0-40.0); LYMPHOCYTES % (AUTO) 1.8 % (20.5-51.5); MEAN CORPUSCULAR HEMOGLOBIN 31.6 uug (23.8-33.4); MEAN CORPUSCULAR HGB CONC 34 g/dL (32.5-36.3); MEAN CORPUSCULAR VOLUME 93.7 fL (73.0-96.2); MONOCYTES # (AUTO) 0.6 K/uL (2.0-10.0); MONOCYTES % (AUTO) 3.4 % (0.0-11.0); NEUTROPHILS # (AUTO) 16.7 K/uL (1.8-8.9); NEUTROPHILS % (AUTO) 94.6 % (38.5-71.5); PLATELET COUNT (AUTO) 179 K/uL (152-348); RED BLOOD CELL COUNT(AUTO) 4.62 MIL/uL (4.06-5.63); WHITE BLOOD COUNT (AUTO) 17.7 K/uL (3.6-10.2)
[2020-02-29 07:13] LABS: POTASSIUM 4.4 mmol/L (3.5-5.1)
--- NOTE | 2020-02-29 07:30 | NUR ---
Received patient in bed awake, alert and oriented times 4. Patient is Cymro speaking but understands some Serbian.. He is on BIPAP 18/8 Respirations 18 at 100%. No sign of distress noted at this time. Safety precautions are in place. Will continue to monitor.
[2020-02-29] MEDS: ENSURE ENLIVE (VAN) 240 ML LIQUID PO SCH ×2 (08:28→17:07)
[2020-02-29] MEDS: ASPIRIN 81 MG TAB.CHEW PO SCH (08:29)
[2020-02-29] MEDS: DEXAMETHASONE SOD PHOSPHATE 4 MG INJ IV SCH (08:29)
[2020-02-29] MEDS: ENOXAPARIN SODIUM 40 MG/0.4 ML DISP.SYRIN SQ SCH (08:31)
[2020-02-29] MEDS: CEFTRIAXONE 1 G in IV DEXTROSE 5% 50 ML IV SCH (09:06)
[2020-02-29 11:14] VITALS: BP 115/67
[2020-02-29 12:18] LABS: ABG BASE EXCESS -1.2 mmol/L; ABG HCO3 22.6 mmol/L; ABG PH 7.427 (7.350-7.450); ABG SITE RIGHT RADIAL; ABG TOTAL HEMOGLOBIN 14.9 G/dL (13.5-18.0); COHb 1.3 % (0.5-1.5); MetHb 0.2 % (0.0-1.5); O2Hb 93.4 % (94.0-97.0); VENT MODE BIPAP
[2020-02-29 16:26] VITALS: BP 130/78
--- NOTE | 2020-02-29 19:24 | NUR ---
Pt unable to tolerate prone position. Addendum: 02/29/20 at 2042 by WYATT GASCA RN Amended: Links added.
--- NOTE | 2020-02-29 19:30 | NUR ---
Received patient lying in bed. AAOx3-4, mainly Serbian speaking. In no acute distress. Denies any pain or SOB. HOB kept elevated. O2 sat at 92-94% on high flow of O2 40% with 100% FiO2. NSR on tele at 80%. IV site on right hand intact and patent. COVID precaution initiated. Safety measure initiated and call sawyer within reached. Continue to monitor. Addendum: 02/29/20 at 0177 by WYATT GASCA RN NSR on tele at 80/min.
--- NOTE | 2020-02-29 19:41 | NUR ---
Patient is resting in bed. No sign of distress noted. Gave all medications as ordered. Safety precautions are in place. Will continue to monitor.
[2020-02-29 20:00] VITALS: BP 127/69
[2020-03-01] VITALS (10 sets, daily range): BP systolic 113–152; BP diastolic 67–87
[2020-03-01] MEDS: PANTOPRAZOLE SODIUM 40 MG TABLET.DR PO SCH (06:10)
--- NOTE | 2020-03-01 07:02 | NUR ---
AAOx3-4. In no acute distress. Denies any pain. O2 sat at 92% on high flow of O2 40% with 100% FiO2. NSR on tele at 95/min. IV site on right hand intact and patent. TKO. COVID precaution maintained. Needs attended to and met. Safety measure maintained and call sawyer within reached.
--- NOTE | 2020-03-01 07:30 | NUR ---
Received patient in bed awake, alert and oriented times 4. Patient is Sammarinese speaking but understands some Armenian. Patient is on high flow oxygen and non rebreather mask. No sign of distress noted at this time. Safety precautions are in place. Will continue to monitor.
[2020-03-01 07:53] LABS: BASOPHILS % (AUTO) 0.2 % (0.0-2.0); EOSINOPHILS % (AUTO) 0.1 % (0.0-7.0); HEMATOCRIT 43.7 % (36.7-47.1); HEMOGLOBIN 14.7 g/dL (12.5-16.3); LYMPHOCYTES # (AUTO) 0.3 K/uL (20.0-40.0); LYMPHOCYTES % (AUTO) 1.6 % (20.5-51.5); MEAN CORPUSCULAR HEMOGLOBIN 31.4 uug (23.8-33.4); MEAN CORPUSCULAR HGB CONC 34 g/dL (32.5-36.3); MEAN CORPUSCULAR VOLUME 93.2 fL (73.0-96.2); MONOCYTES # (AUTO) 0.7 K/uL (2.0-10.0); MONOCYTES % (AUTO) 3.6 % (0.0-11.0); NEUTROPHILS # (AUTO) 17.9 K/uL (1.8-8.9); NEUTROPHILS % (AUTO) 94.5 % (38.5-71.5); PLATELET COUNT (AUTO) 203 K/uL (152-348); RED BLOOD CELL COUNT(AUTO) 4.69 MIL/uL (4.06-5.63); WHITE BLOOD COUNT (AUTO) 18.9 K/uL (3.6-10.2)
[2020-03-01 08:40] LABS: BILIRUBIN,DIRECT 0.2 mg/dL (0.0-0.2); BILIRUBIN,TOTAL 0.8 mg/dL (0.2-1.0); CREATININE 0.9 mg/dL (0.6-1.3); PHOSPHOROUS 3.7 mg/dL (2.5-4.9); POTASSIUM 4.8 mmol/L (3.5-5.1); TOTAL PROTEIN, SERUM 6.6 g/dL (6.4-8.2)
[2020-03-01] MEDS: DEXAMETHASONE SOD PHOSPHATE 4 MG INJ IV SCH (08:41)
[2020-03-01] MEDS: ENSURE ENLIVE (VAN) 240 ML LIQUID PO SCH ×2 (08:41→17:44)
[2020-03-01] MEDS: ASPIRIN 81 MG TAB.CHEW PO SCH (08:41)
[2020-03-01] MEDS: ENOXAPARIN SODIUM 40 MG/0.4 ML DISP.SYRIN SQ SCH (08:42)
--- NOTE | 2020-03-01 11:50 | NUR ---
Patient desaturated and was having difficulty breathing, the CUSTOMER EXPERT called a rapid response. Patient place on BIPAP and saturated started to improve. Will continue to monitor.
[2020-03-01] MEDS ORDERED: CEFEPIME HCL 1 G in IV DEXTROSE 5% 50 ML IV SCH (12:00)
--- NOTE | 2020-03-01 12:10 | NUR ---
Patient start to desaturate again, another rapid response called. Setting on the BIPAP was changed and patient started to improve, saturation was at 97%. Patient was still anxious and agitated. Used therapeutic communication to help patient calm down. Will continue to monitor.
--- NOTE | 2020-03-01 13:10 | NUR ---
Patient complained of pain, checked eMAR and gave medication as ordered. Will continue to monitor.
[2020-03-01] MEDS: ACETAMINOPHEN 325 MG TABLET PO PRN (13:18)
[2020-03-01] MEDS: CEFEPIME HCL 2 G in IV DEXTROSE 5% 100 ML IV SCH ×2 (13:18→22:17)
--- NOTE | 2020-03-01 18:55 | NUR ---
Received telephone consent for convalescence plasma blood transfusion. Son Mike Stone gave consent and witnessed by YAZ David and Ryan. Will continue to monitor
--- NOTE | 2020-03-01 19:17 | NUR ---
Patient is resting in bed with BIPAP. Patient shows no sign of distress at this time. Gave all medications as ordered. Safety precautions are in place. Will endorse to oncoming nurse.
[2020-03-01] MEDS: IV NORMAL SALINE 250 ML IV PRN (20:45)
--- NOTE | 2020-03-01 20:45 | NUR ---
Received Pt. lying in bed, AOX3, no acute distress. On BiPap w/ rate of 20 and FIO2 of 100%. VS stable w/ NSR on monitor. Infusing Convalescent Plasma via Rt. hand 20g IV line. Left forearm IV line intact and patent. Call light within reach, all needs attended and will continue to monitor Pt.
[2020-03-01] MEDS: ENOXAPARIN SODIUM 60 MG/0.6 ML DISP.SYRIN SQ SCH (21:00)
--- NOTE | 2020-03-01 21:45 | NUR ---
Completed Convalescent Plasma without episode.
--- NOTE | 2020-03-01 22:00 | NUR ---
Ordered F/C inserted w/ 350cc output. Pt. tolerated procedure well.
[2020-03-02] VITALS (27 sets, daily range): BP systolic 90–147; BP diastolic 56–91
[2020-03-02] MEDS: CEFEPIME HCL 2 G in IV DEXTROSE 5% 100 ML IV SCH ×3 (05:13→20:33)
[2020-03-02 05:46] LABS: BASOPHILS # (AUTO) 0.1 K/uL (0.0-8.0); BASOPHILS % (AUTO) 0.4 % (0.0-2.0); EOSINOPHILS % (AUTO) 0.1 % (0.0-7.0); HEMATOCRIT 41.4 % (36.7-47.1); HEMOGLOBIN 13.5 g/dL (12.5-16.3); LYMPHOCYTES # (AUTO) 0.4 K/uL (20.0-40.0); LYMPHOCYTES % (AUTO) 1.9 % (20.5-51.5); MEAN CORPUSCULAR HEMOGLOBIN 30.6 uug (23.8-33.4); MEAN CORPUSCULAR HGB CONC 33 g/dL (32.5-36.3); MEAN CORPUSCULAR VOLUME 93.6 fL (73.0-96.2); MONOCYTES # (AUTO) 0.8 K/uL (2.0-10.0); MONOCYTES % (AUTO) 4.2 % (0.0-11.0); NEUTROPHILS # (AUTO) 17.8 K/uL (1.8-8.9); NEUTROPHILS % (AUTO) 93.4 % (38.5-71.5); PLATELET COUNT (AUTO) 184 K/uL (152-348); RED BLOOD CELL COUNT(AUTO) 4.42 MIL/uL (4.06-5.63)
[2020-03-02 06:03] LABS: CREATININE 0.8 mg/dL (0.6-1.3); MAGNESIUM 2.1 mg/dL (1.8-2.4); PHOSPHOROUS 3.6 mg/dL (2.5-4.9); POTASSIUM 4.3 mmol/L (3.5-5.1)
[2020-03-02] MEDS: PANTOPRAZOLE SODIUM 40 MG TABLET.DR PO SCH (06:12)
[2020-03-02] MEDS: ENSURE ENLIVE (VAN) 240 ML LIQUID PO SCH ×4 (07:48→17:43)
[2020-03-02] MEDS: ASPIRIN 81 MG TAB.CHEW PO SCH (07:48)
[2020-03-02] MEDS: ENOXAPARIN SODIUM 60 MG/0.6 ML DISP.SYRIN SQ SCH ×2 (07:51→20:35)
--- NOTE | 2020-03-02 09:23 | NUR ---
patient is non-compliant repeatedly trying to take off bipap mask. Explained to patient he can not keep taking it off because he desaturating quickly.
[2020-03-02] MEDS: IV D5/ 0.9% NACL 1,000 ML IV PRN (12:41)
[2020-03-02 13:49] LABS: ABG BASE EXCESS 0.5 mmol/L; ABG HCO3 25.2 mmol/L; ABG PCO2 41.1 mmHg (35.0-45.0); ABG PH 7.406 (7.350-7.450); ABG PO2 93.6 mmHg (75.0-100.0); ABG SITE RIGHT RADIAL; ABG TOTAL HEMOGLOBIN 14.8 G/dL (13.5-18.0); MetHb 0.2 % (0.0-1.5); O2Hb 96.2 % (94.0-97.0); VENT MODE BIPAP - 25/15
[2020-03-02] MEDS: LORAZEPAM 2 MG/1 ML VIAL IV PRN (19:51)
--- NOTE | 2020-03-02 19:51 | NUR ---
patient keep removing bipap ,very restless ,agitated given prn ativan and reoriented patient and advised not to remove bipap.
--- NOTE | 2020-03-02 19:51 | NUR ---
rounds made patient and in confused and keeps removing bipap reoriented with bipap and advised not to removed it . patient restless and on and off follow commands . given prn Ativan for agitation .
[2020-03-02] MEDS: MORPHINE SULFATE 2 MG/1 ML DISP.SYRIN IV PRN (21:08)
[2020-03-02] MEDS ORDERED: PHENYLEPHRINE 10 MG/1 ML VIAL ONE (21:29)
[2020-03-02] MEDS ORDERED: KETAMINE HCL 500 MG/10 ML INJ IV ONE (21:30)
--- NOTE | 2020-03-02 21:30 | NUR ---
patient agitated and desating and removing bipap unable to educated and maintain saturation 80 % called ER MD AND NOTIFY THE NEED FOR INTUBATION .SPOKED WITH EDU MATT HIS COMING .
[2020-03-02] MEDS ORDERED: KETAMINE HCL 500 MG/10 ML INJ ONE (21:32)
--- NOTE | 2020-03-02 21:40 | NUR ---
Tahira SUCCESSFULLY intubated patient ETT 7.5,23CM RATE 18,450,+8 100%.RESPIRATORY therapist collected sputum and send to lab .abg in 30 mins.called for chest xray verification of placement .
[2020-03-02] MEDS ORDERED: ETOMIDATE 20 MG/10 ML VIAL IV ONE (21:45)
[2020-03-02] MEDS ORDERED: SUCCINYLCHOLINE CHLORIDE 200 MG/10 ML VIAL IV ONE (21:45)
[2020-03-02] MEDS: PHENYLEPHRINE IV 50 MG in IV NORMAL SALINE 245 ML IV PRN (21:59)
--- NOTE | 2020-03-02 22:03 | NUR ---
0018 as per cecy KOWALSKI to advance ETT by 1cm.informed respiratory therapist . ett 7.5 24 cm .
[2020-03-02] MEDS: PROPOFOL 100 ML IV PRN (22:17)
[2020-03-02 22:28] LABS: ABG BASE EXCESS -5.4 mmol/L; ABG HCO3 21.9 mmol/L; ABG PCO2 49.4 mmHg (35.0-45.0); ABG PH 7.265 (7.350-7.450); ABG SITE LEFT BRACHIAL; ABG TOTAL HEMOGLOBIN 14.9 G/dL (13.5-18.0); COHb 1.3 % (0.5-1.5); MetHb 0.5 % (0.0-1.5); O2Hb 70.7 % (94.0-97.0); VENT MODE VENT - A/C; VT, ABG 450 mL
--- NOTE | 2020-03-02 22:35 | NUR ---
abg results dictated to cecy WETZEL with orders to increase rate 28 peep 12 repeat abg at 0700 and chest xray at 0700.
--- NOTE | 2020-03-02 22:45 | NUR ---
called patient family spoked with LOBO made aware patient got intubated and needs a PICCLINE agree with the piccline 2nd RN witness the consent . called fish housekeeper the piccline RN coming in am .
[2020-03-03] VITALS (29 sets, daily range): BP systolic 88–126; BP diastolic 45–91
[2020-03-03] MEDS: MORPHINE SULFATE 2 MG/1 ML DISP.SYRIN IV PRN (00:53)
[2020-03-03] MEDS: PROPOFOL 100 ML IV PRN ×6 (03:07→22:18)
--- NOTE | 2020-03-03 03:13 | NUR ---
tolerating vent settings saturation 93% and rr 31 . bp 93/30 on neosynephrine drip at 0.5 mcg/kg/min .f/c with adequate urinary output see i and os .no s/s of pain on propofol drip .see flow sheet .
[2020-03-03] MEDS ORDERED: PROPOFOL 100 ML ONE (03:55)
--- NOTE | 2020-03-03 04:47 | NUR ---
FAHEEM SMITH WAS ERROR, UNABLE TO UNDO.
[2020-03-03 05:36] LABS: BASOPHILS % (AUTO) 0.1 % (0.0-2.0); EOSINOPHILS # (AUTO) 0.2 K/uL (0.0-0.7); EOSINOPHILS % (AUTO) 0.8 % (0.0-7.0); HEMATOCRIT 42.6 % (36.7-47.1); LYMPHOCYTES # (AUTO) 1.1 K/uL (20.0-40.0); LYMPHOCYTES % (AUTO) 4.1 % (20.5-51.5); MEAN CORPUSCULAR HEMOGLOBIN 30.6 uug (23.8-33.4); MEAN CORPUSCULAR HGB CONC 33 g/dL (32.5-36.3); MEAN CORPUSCULAR VOLUME 93.3 fL (73.0-96.2); MONOCYTES % (AUTO) 3.7 % (0.0-11.0); NEUTROPHILS # (AUTO) 25.5 K/uL (1.8-8.9); NEUTROPHILS % (AUTO) 91.3 % (38.5-71.5); PLATELET COUNT (AUTO) 224 K/uL (152-348); RED BLOOD CELL COUNT(AUTO) 4.57 MIL/uL (4.06-5.63)
[2020-03-03] MEDS: CEFEPIME HCL 2 G in IV DEXTROSE 5% 100 ML IV SCH ×3 (05:38→20:15)
[2020-03-03 05:50] LABS: BILIRUBIN,DIRECT 0.5 mg/dL (0.0-0.2); CREATININE 1.2 mg/dL (0.6-1.3); MAGNESIUM 2.1 mg/dL (1.8-2.4); PHOSPHOROUS 3.7 mg/dL (2.5-4.9); POTASSIUM 4.5 mmol/L (3.5-5.1); TOTAL PROTEIN, SERUM 6.3 g/dL (6.4-8.2)
[2020-03-03 06:04] LABS: WHITE BLOOD COUNT (AUTO) 27.9 K/uL (3.6-10.2)
[2020-03-03 06:28] LABS: ABG BASE EXCESS -2.6 mmol/L; ABG HCO3 21.6 mmol/L; ABG PCO2 35.6 mmHg (35.0-45.0); ABG SITE RIGHT RADIAL; ABG TOTAL HEMOGLOBIN 14.2 G/dL (13.5-18.0); COHb 1.4 % (0.5-1.5); MetHb 0.3 % (0.0-1.5); O2Hb 91.5 % (94.0-97.0); VENT MODE VENT - A/C; VT, ABG 450 mL
--- NOTE | 2020-03-03 06:28 | NUR ---
weight patient via bed scale 209 lbs . initial wt is 145 lbs .
[2020-03-03] MEDS ORDERED: SUCCINYLCHOLINE CHLORIDE 200 MG/10 ML VIAL IV ONE (07:50)
[2020-03-03] MEDS ORDERED: ETOMIDATE 20 MG/10 ML VIAL IV ONE (07:50)
[2020-03-03] MEDS: PANTOPRAZOLE SODIUM 40 MG TABLET.DR PO SCH (08:35)
[2020-03-03] MEDS: ASPIRIN 81 MG TAB.CHEW PO SCH (08:35)
[2020-03-03] MEDS: ENSURE ENLIVE (VAN) 240 ML LIQUID PO SCH ×3 (08:35→16:37)
[2020-03-03] MEDS: ENOXAPARIN SODIUM 60 MG/0.6 ML DISP.SYRIN SQ SCH ×2 (08:36→20:14)
[2020-03-03 08:55] LABS: ABG BASE EXCESS -2.4 mmol/L; ABG HCO3 22.2 mmol/L; ABG PCO2 37.8 mmHg (35.0-45.0); ABG PH 7.387 (7.350-7.450); ABG SITE RIGHT RADIAL; ABG TOTAL HEMOGLOBIN 14.5 G/dL (13.5-18.0); COHb 1.4 % (0.5-1.5); MetHb 0.3 % (0.0-1.5); O2Hb 93.3 % (94.0-97.0); VENT MODE VENT - A/C; VT, ABG 450 mL
[2020-03-03] MEDS: ACETAMINOPHEN 325 MG TABLET PO PRN (10:21)
--- NOTE | 2020-03-03 10:21 | NUR ---
Tylenol given for fever 102F. Cooling measures applied. Espinoza cultures ordered and done.
--- NOTE | 2020-03-03 14:45 | NUR ---
Dr. Gottlieb here to see pt. Full report given. New orders received.
[2020-03-03] MEDS: IV D5/ 0.9% NACL 1,000 ML IV PRN (15:12)
[2020-03-03] MEDS: PHENYLEPHRINE IV 50 MG in IV NORMAL SALINE 245 ML IV PRN (16:36)
--- NOTE | 2020-03-03 17:52 | NUR ---
PICC line RN here to see pt for PICC line insertion.
[2020-03-04] VITALS (27 sets, daily range): BP systolic 85–180; BP diastolic 47–79
[2020-03-04] MEDS: PROPOFOL 100 ML IV PRN ×7 (03:02→22:52)
[2020-03-04] MEDS: CEFEPIME HCL 2 G in IV DEXTROSE 5% 100 ML IV SCH ×3 (04:26→20:17)
[2020-03-04 04:29] LABS: LYMPHOCYTES % (MANUAL) 4 % (20-40); MONOCYTES % (MANUAL) 3 % (2-10); NEUTROPHILS % (MANUAL) 93 % (42-75)
[2020-03-04 05:15] LABS: BASOPHILS % (AUTO) 0.1 % (0.0-2.0); EOSINOPHILS # (AUTO) 0.3 K/uL (0.0-0.7); HEMATOCRIT 41.2 % (36.7-47.1); LYMPHOCYTES # (AUTO) 0.5 K/uL (20.0-40.0); LYMPHOCYTES % (AUTO) 2.8 % (20.5-51.5); MEAN CORPUSCULAR HEMOGLOBIN 30.5 uug (23.8-33.4); MEAN CORPUSCULAR HGB CONC 32 g/dL (32.5-36.3); MEAN CORPUSCULAR VOLUME 96.9 fL (73.0-96.2); MONOCYTES # (AUTO) 0.4 K/uL (2.0-10.0); MONOCYTES % (AUTO) 2.1 % (0.0-11.0); NEUTROPHILS # (AUTO) 15.6 K/uL (1.8-8.9); PLATELET COUNT (AUTO) 151 K/uL (152-348); RED BLOOD CELL COUNT(AUTO) 4.25 MIL/uL (4.06-5.63); WHITE BLOOD COUNT (AUTO) 16.8 K/uL (3.6-10.2)
[2020-03-04 05:51] LABS: BILIRUBIN,DIRECT 0.3 mg/dL (0.0-0.2); BILIRUBIN,TOTAL 0.6 mg/dL (0.2-1.0); CREATININE 0.9 mg/dL (0.6-1.3); PHOSPHOROUS 2.5 mg/dL (2.5-4.9); POTASSIUM 3.8 mmol/L (3.5-5.1); TOTAL PROTEIN, SERUM 5.7 g/dL (6.4-8.2)
[2020-03-04] MEDS: PANTOPRAZOLE SODIUM 40 MG TABLET.DR PO SCH (07:00)
[2020-03-04] MEDS: ACETAMINOPHEN 650 MG SUPP.RECT RC PRN (07:30)
[2020-03-04] MEDS: ASPIRIN 81 MG TAB.CHEW PO SCH (08:23)
[2020-03-04] MEDS: ENOXAPARIN SODIUM 60 MG/0.6 ML DISP.SYRIN SQ SCH ×2 (08:27→20:16)
[2020-03-04] MEDS: ENSURE ENLIVE (VAN) 240 ML LIQUID PO SCH ×2 (08:28→12:36)
[2020-03-04 08:44] LABS: ABG BASE EXCESS -1.8 mmol/L; ABG HCO3 23.5 mmol/L; ABG PCO2 41.9 mmHg (35.0-45.0); ABG PH 7.367 (7.350-7.450); ABG PO2 56.6 mmHg (75.0-100.0); ABG SITE LEFT RADIAL; ABG TOTAL HEMOGLOBIN 15.3 G/dL (13.5-18.0); COHb 1.5 % (0.5-1.5); MetHb 0.2 % (0.0-1.5); O2Hb 87.8 % (94.0-97.0); VENT MODE VENT - A/C; VT, ABG 550 mL
--- NOTE | 2020-03-04 11:56 | NUR ---
PT RECEIVED ON VENT WITH 7.5 ETT SECURED AT 24 CM BY LIP LINE. VENT SETTINGS AC28/450/85%/+12 PEEP. ROUTINE ABG DONE AND SEEN BY DR CHILDS. NO VENT SETTING CHANGES MADE AT THIS TIME. WILL CONTINUE TO MONITOR
[2020-03-04] MEDS: IV D5/ 0.9% NACL 1,000 ML IV PRN (12:30)
[2020-03-04] MEDS: ACETAMINOPHEN 325 MG TABLET PO PRN (12:33)
--- NOTE | 2020-03-04 15:16 | NUR ---
1500 FIO2 TITRATED DOWN TO 80% AND PEEP LOWERED TO 10. PT SPO2 MAINTAINING AROUND 98% WITH NO DISTRESS. WILL CONTINUE TO MONITOR.
--- NOTE | 2020-03-04 18:10 | NUR ---
PT TOLERATED CURRENT VENT SETTINGS FINE WITHOUT ANY EPISODE OF RESPIRATORY DISTRESS. PT VENT SETTINGS IS NOW AC28/450/80%/+10 PEEP. PT HAD MODERATE AMOUNT OF SEMI THICK OFF WHITE YELLOW SECRETIONS. ORAL CARE WAS DONE IN THE BEGINNING OF THE SHIFT. THE HEAD OF THE BED WAS MAINTAINED ABOVE 35 DEGREE ANGLE THROUGHOUT SHIFT.
[2020-03-04] MEDS: PROTEIN SUPPLEMENT (PROSTAT) 30 ML LIQUID GT SCH (20:17)
[2020-03-04] MEDS ORDERED: VITAL AF 1.2 1,000 ML LIQUID GT PRN (23:15)
[2020-03-05] VITALS (24 sets, daily range): BP systolic 92–147; BP diastolic 54–77
[2020-03-05] MEDS: PROPOFOL 100 ML IV PRN ×5 (03:24→23:13)
[2020-03-05] MEDS: CEFEPIME HCL 2 G in IV DEXTROSE 5% 100 ML IV SCH ×3 (04:52→20:24)
[2020-03-05] MEDS: PANTOPRAZOLE ORAL SUSPENSION 40 MG SUSPDR.PKT GT SCH (05:20)
[2020-03-05 06:26] LABS: BASOPHILS % (AUTO) 0.1 % (0.0-2.0); CREATININE 0.7 mg/dL (0.6-1.3); EOSINOPHILS # (AUTO) 0.1 K/uL (0.0-0.7); EOSINOPHILS % (AUTO) 0.5 % (0.0-7.0); HEMATOCRIT 38.7 % (36.7-47.1); HEMOGLOBIN 12.5 g/dL (12.5-16.3); LYMPHOCYTES # (AUTO) 0.2 K/uL (20.0-40.0); LYMPHOCYTES % (AUTO) 1.5 % (20.5-51.5); MAGNESIUM 2.1 mg/dL (1.8-2.4); MEAN CORPUSCULAR HEMOGLOBIN 30.7 uug (23.8-33.4); MEAN CORPUSCULAR HGB CONC 32 g/dL (32.5-36.3); MEAN CORPUSCULAR VOLUME 95.2 fL (73.0-96.2); MONOCYTES # (AUTO) 0.3 K/uL (2.0-10.0); MONOCYTES % (AUTO) 2.3 % (0.0-11.0); NEUTROPHILS # (AUTO) 12.5 K/uL (1.8-8.9); NEUTROPHILS % (AUTO) 95.6 % (38.5-71.5); PHOSPHOROUS 2.5 mg/dL (2.5-4.9); PLATELET COUNT (AUTO) 142 K/uL (152-348); RED BLOOD CELL COUNT(AUTO) 4.06 MIL/uL (4.06-5.63); WHITE BLOOD COUNT (AUTO) 13.1 K/uL (3.6-10.2)
[2020-03-05 08:33] LABS: ABG BASE EXCESS -3.4 mmol/L; ABG HCO3 24.6 mmol/L; ABG PCO2 57.1 mmHg (35.0-45.0); ABG PH 7.252 (7.350-7.450); ABG PO2 83.6 mmHg (75.0-100.0); ABG SITE RIGHT RADIAL; ABG TOTAL HEMOGLOBIN 13.4 G/dL (13.5-18.0); COHb 1.2 % (0.5-1.5); MetHb 0.2 % (0.0-1.5); VENT MODE VENT - A/C; VT, ABG 450 mL
[2020-03-05] MEDS: ASPIRIN 81 MG TAB.CHEW PO SCH (08:42)
[2020-03-05] MEDS: ENOXAPARIN SODIUM 60 MG/0.6 ML DISP.SYRIN SQ SCH ×2 (08:43→20:25)
[2020-03-05] MEDS: PROTEIN SUPPLEMENT (PROSTAT) 30 ML LIQUID GT SCH ×2 (08:43→20:26)
--- NOTE | 2020-03-05 09:00 | NUR ---
patient with a low grade fever of 99.8. given tylenol and placed ice bags of cooling measures. Addendum: 03/05/20 at 1854 by JACQUELINE RAMOS RN notation error on different patient.
[2020-03-05] MEDS: ACETAMINOPHEN 325 MG TABLET PO PRN ×2 (09:15→15:26)
[2020-03-05] MEDS: IV D5/ 0.9% NACL 1,000 ML IV PRN (09:45)
[2020-03-05] MEDS: DEXAMETHASONE SOD PHOSPHATE 10 MG INJ IV SCH (15:25)
[2020-03-06] VITALS (24 sets, daily range): BP systolic 117–171; BP diastolic 58–86
[2020-03-06] MEDS: PROPOFOL 100 ML IV PRN ×5 (03:50→21:02)
[2020-03-06] MEDS: CEFEPIME HCL 2 G in IV DEXTROSE 5% 100 ML IV SCH ×3 (04:58→20:58)
[2020-03-06 05:25] LABS: BASOPHILS % (AUTO) 0.1 % (0.0-2.0); HEMATOCRIT 35.7 % (36.7-47.1); HEMOGLOBIN 11.6 g/dL (12.5-16.3); LYMPHOCYTES # (AUTO) 0.2 K/uL (20.0-40.0); LYMPHOCYTES % (AUTO) 1.8 % (20.5-51.5); MEAN CORPUSCULAR HGB CONC 33 g/dL (32.5-36.3); MEAN CORPUSCULAR VOLUME 95.5 fL (73.0-96.2); MONOCYTES # (AUTO) 0.3 K/uL (2.0-10.0); MONOCYTES % (AUTO) 2.7 % (0.0-11.0); NEUTROPHILS # (AUTO) 11.4 K/uL (1.8-8.9); NEUTROPHILS % (AUTO) 95.4 % (38.5-71.5); PLATELET COUNT (AUTO) 172 K/uL (152-348); RED BLOOD CELL COUNT(AUTO) 3.74 MIL/uL (4.06-5.63); WHITE BLOOD COUNT (AUTO) 11.9 K/uL (3.6-10.2)
[2020-03-06 05:37] LABS: CREATININE 0.6 mg/dL (0.6-1.3); MAGNESIUM 2.2 mg/dL (1.8-2.4); PHOSPHOROUS 2.1 mg/dL (2.5-4.9); POTASSIUM 4.2 mmol/L (3.5-5.1)
[2020-03-06] MEDS: DEXAMETHASONE SOD PHOSPHATE 10 MG INJ IV SCH (08:21)
[2020-03-06] MEDS: ASPIRIN 81 MG TAB.CHEW PO SCH (08:21)
[2020-03-06] MEDS: PANTOPRAZOLE ORAL SUSPENSION 40 MG SUSPDR.PKT GT SCH (08:21)
[2020-03-06] MEDS: PROTEIN SUPPLEMENT (PROSTAT) 30 ML LIQUID GT SCH ×2 (08:21→20:58)
[2020-03-06] MEDS: ENOXAPARIN SODIUM 60 MG/0.6 ML DISP.SYRIN SQ SCH ×2 (08:22→20:57)
[2020-03-06 08:56] LABS: ABG BASE EXCESS -0.6 mmol/L; ABG HCO3 27.5 mmol/L; ABG PCO2 61.6 mmHg (35.0-45.0); ABG PH 7.267 (7.350-7.450); ABG PO2 65.9 mmHg (75.0-100.0); ABG SITE LEFT RADIAL; ABG TOTAL HEMOGLOBIN 12.5 G/dL (13.5-18.0); COHb 1.3 % (0.5-1.5); MetHb 0.2 % (0.0-1.5); O2Hb 90.8 % (94.0-97.0); VENT MODE VENT - A/C; VT, ABG 450 mL
--- NOTE | 2020-03-06 15:06 | NUR ---
Dr. Gottlieb here to see pt. Full report given. New orders received.
[2020-03-06] MEDS ORDERED: NEUTRA PHOS PACKET GT ONE ×2 (15:45→18:30)
--- NOTE | 2020-03-06 19:00 | NUR ---
received patient sedated . responds to deep pain by withdrawal on vital af at 25 ml , ngt , placement and residual checked , ac 28 tv 450 p 10 fio2 of 60 % , paz and picc line intact , propofol at 60 mcg , no fever
[2020-03-06] MEDS: VITAL AF 1.2 1,000 ML LIQUID GT PRN (23:00)
[2020-03-07] VITALS (24 sets, daily range): BP systolic 113–143; BP diastolic 67–79
[2020-03-07] MEDS: PROPOFOL 100 ML IV PRN ×5 (00:28→17:24)
[2020-03-07] MEDS: CEFEPIME HCL 2 G in IV DEXTROSE 5% 100 ML IV SCH ×3 (04:40→20:47)
[2020-03-07 05:34] LABS: BASOPHILS % (AUTO) 0.1 % (0.0-2.0); HEMATOCRIT 40.8 % (36.7-47.1); HEMOGLOBIN 13.2 g/dL (12.5-16.3); LYMPHOCYTES # (AUTO) 0.4 K/uL (20.0-40.0); LYMPHOCYTES % (AUTO) 2.4 % (20.5-51.5); MEAN CORPUSCULAR HEMOGLOBIN 30.8 uug (23.8-33.4); MEAN CORPUSCULAR HGB CONC 32 g/dL (32.5-36.3); MEAN CORPUSCULAR VOLUME 95.3 fL (73.0-96.2); MONOCYTES # (AUTO) 0.7 K/uL (2.0-10.0); MONOCYTES % (AUTO) 4.7 % (0.0-11.0); NEUTROPHILS # (AUTO) 14.4 K/uL (1.8-8.9); NEUTROPHILS % (AUTO) 92.8 % (38.5-71.5); PLATELET COUNT (AUTO) 200 K/uL (152-348); RED BLOOD CELL COUNT(AUTO) 4.28 MIL/uL (4.06-5.63); WHITE BLOOD COUNT (AUTO) 15.6 K/uL (3.6-10.2)
[2020-03-07 05:49] LABS: BILIRUBIN,TOTAL 0.5 mg/dL (0.2-1.0); CREATININE 0.7 mg/dL (0.6-1.3); MAGNESIUM 2.2 mg/dL (1.8-2.4); PHOSPHOROUS 2.5 mg/dL (2.5-4.9); POTASSIUM 4.4 mmol/L (3.5-5.1); TOTAL PROTEIN, SERUM 6.4 g/dL (6.4-8.2)
[2020-03-07] MEDS: PANTOPRAZOLE ORAL SUSPENSION 40 MG SUSPDR.PKT GT SCH (05:59)
[2020-03-07] MEDS: ASPIRIN 81 MG TAB.CHEW PO SCH (08:18)
[2020-03-07] MEDS: PROTEIN SUPPLEMENT (PROSTAT) 30 ML LIQUID GT SCH ×2 (08:19→21:31)
[2020-03-07] MEDS: DEXAMETHASONE SOD PHOSPHATE 10 MG INJ IV SCH (08:19)
[2020-03-07 08:44] LABS: ABG BASE EXCESS 4.8 mmol/L; ABG HCO3 33.9 mmol/L; ABG PCO2 73.5 mmHg (35.0-45.0); ABG PH 7.282 (7.350-7.450); ABG PO2 64.3 mmHg (75.0-100.0); ABG SITE LEFT RADIAL; ABG TOTAL HEMOGLOBIN 13.6 G/dL (13.5-18.0); COHb 1.4 % (0.5-1.5); MetHb 0.3 % (0.0-1.5); O2Hb 90.4 % (94.0-97.0); VENT MODE VENT - A/C; VT, ABG 450 mL
--- NOTE | 2020-03-07 09:25 | NUR ---
Spoke with Dr. Gottlieb on the telephone and reported blood gas results. No new orders received. MD to see pt later today.
[2020-03-07] MEDS: ENOXAPARIN SODIUM 60 MG/0.6 ML DISP.SYRIN SQ SCH ×2 (09:27→20:46)
--- NOTE | 2020-03-07 19:15 | NUR ---
received patient sedated on propofol at 60 mcg , vent settings of ac 28 tv 450 p 10 fio2 55 % , paz and picc line intact , oral gt , vital af 25 ml , placement and residual checked
[2020-03-08] VITALS (23 sets, daily range): BP systolic 98–136; BP diastolic 60–84
[2020-03-08] MEDS: PROPOFOL 100 ML IV PRN ×4 (01:00→15:40)
[2020-03-08] MEDS: CEFEPIME HCL 2 G in IV DEXTROSE 5% 100 ML IV SCH ×3 (04:23→20:26)
--- NOTE | 2020-03-08 05:00 | NUR ---
Notified Dale Glez NP patients HR 178. STAT EKG & troponin.
--- NOTE | 2020-03-08 05:00 | NUR ---
Er DOCTOR NOTIFIED OF STATUS OF PATIENT HEART RATE SUSTAINING TO > 170 , RECEIVED NO ORDER WHILE WAITING FOR PRIMARY PHYSICIAN TO CALL BACK
--- NOTE | 2020-03-08 05:00 | NUR ---
Episode possibly: torsades de pointes With Heart rate 174; spontaneously corrected. Contacted Dale Glez MANUFACTURING GROUP LEADER
--- NOTE | 2020-03-08 05:15 | NUR ---
kemi was notified of patient's status . 3rd , patient went to svt heart rate sustaining to > 170's , received order to hold off calling accounts receivable manager , waiting for troponin and lab work results this am , residence supervisor aware
[2020-03-08 05:25] LABS: BASOPHILS % (AUTO) 0.4 % (0.0-2.0); EOSINOPHILS # (AUTO) 0.1 K/uL (0.0-0.7); EOSINOPHILS % (AUTO) 0.6 % (0.0-7.0); HEMATOCRIT 41.7 % (36.7-47.1); HEMOGLOBIN 13.6 g/dL (12.5-16.3); LYMPHOCYTES # (AUTO) 0.4 K/uL (20.0-40.0); MEAN CORPUSCULAR HGB CONC 33 g/dL (32.5-36.3); MEAN CORPUSCULAR VOLUME 95.1 fL (73.0-96.2); MONOCYTES # (AUTO) 0.6 K/uL (2.0-10.0); MONOCYTES % (AUTO) 4.4 % (0.0-11.0); NEUTROPHILS # (AUTO) 11.9 K/uL (1.8-8.9); NEUTROPHILS % (AUTO) 91.6 % (38.5-71.5); PLATELET COUNT (AUTO) 174 K/uL (152-348); RED BLOOD CELL COUNT(AUTO) 4.38 MIL/uL (4.06-5.63)
[2020-03-08 05:40] LABS: CREATININE 0.7 mg/dL (0.6-1.3); MAGNESIUM 2.1 mg/dL (1.8-2.4); PHOSPHOROUS 2.1 mg/dL (2.5-4.9); POTASSIUM 4.3 mmol/L (3.5-5.1)
[2020-03-08] MEDS ORDERED: AMIODARONE HCL IV 150 MG in IV DEXTROSE 5% 100 ML IV ONE (07:30)
--- NOTE | 2020-03-08 07:30 | NUR ---
Received orders from Dr Lorenzo. text'd picture of monitor
[2020-03-08 08:28] LABS: ABG BASE EXCESS 8.1 mmol/L; ABG HCO3 36.1 mmol/L; ABG PH 7.356 (7.350-7.450); ABG PO2 52.2 mmHg (75.0-100.0); ABG SITE RIGHT RADIAL; ABG TOTAL HEMOGLOBIN 14.3 G/dL (13.5-18.0); COHb 1.5 % (0.5-1.5); MetHb 0.3 % (0.0-1.5); O2Hb 85.7 % (94.0-97.0); VENT MODE VENT - A/C; VT, ABG 500 mL
[2020-03-08] MEDS: AMIODARONE HCL IV 450 MG in IV DEXTROSE 5% 250 ML IV PRN ×3 (08:43→21:35)
[2020-03-08] MEDS: PANTOPRAZOLE ORAL SUSPENSION 40 MG SUSPDR.PKT GT SCH (09:04)
[2020-03-08] MEDS: PROTEIN SUPPLEMENT (PROSTAT) 30 ML LIQUID GT SCH ×2 (09:08→20:21)
[2020-03-08] MEDS: ASPIRIN 81 MG TAB.CHEW PO SCH (09:08)
[2020-03-08] MEDS: ENOXAPARIN SODIUM 60 MG/0.6 ML DISP.SYRIN SQ SCH ×2 (09:11→20:24)
[2020-03-08] MEDS: DEXAMETHASONE SOD PHOSPHATE 10 MG INJ IV SCH (09:14)
[2020-03-08] MEDS: VITAL AF 1.2 1,000 ML LIQUID GT PRN (09:57)
[2020-03-08] MEDS ORDERED: NEUTRA PHOS PACKET PO ONE (17:45)
--- NOTE | 2020-03-08 22:16 | NUR ---
Episode of A-Fib with rate above 120s and BP: 110/74; converted back to SR @2220 with rate of 80-90s
[2020-03-09] VITALS (36 sets, daily range): BP systolic 94–128; BP diastolic 59–76
[2020-03-09] MEDS: IV NORMAL SALINE 250 ML IV PRN (02:25)
[2020-03-09] MEDS: PROPOFOL 100 ML IV PRN ×5 (03:09→23:00)
[2020-03-09] MEDS: CEFEPIME HCL 2 G in IV DEXTROSE 5% 100 ML IV SCH ×3 (04:56→20:14)
[2020-03-09 05:30] LABS: BASOPHILS % (AUTO) 0.2 % (0.0-2.0); EOSINOPHILS # (AUTO) 0.1 K/uL (0.0-0.7); EOSINOPHILS % (AUTO) 0.4 % (0.0-7.0); HEMATOCRIT 40.1 % (36.7-47.1); LYMPHOCYTES # (AUTO) 0.6 K/uL (20.0-40.0); LYMPHOCYTES % (AUTO) 4.1 % (20.5-51.5); MEAN CORPUSCULAR HEMOGLOBIN 30.9 uug (23.8-33.4); MEAN CORPUSCULAR HGB CONC 32 g/dL (32.5-36.3); MEAN CORPUSCULAR VOLUME 95.3 fL (73.0-96.2); MONOCYTES # (AUTO) 0.7 K/uL (2.0-10.0); MONOCYTES % (AUTO) 4.5 % (0.0-11.0); NEUTROPHILS # (AUTO) 13.8 K/uL (1.8-8.9); NEUTROPHILS % (AUTO) 90.8 % (38.5-71.5); PLATELET COUNT (AUTO) 169 K/uL (152-348); WHITE BLOOD COUNT (AUTO) 15.2 K/uL (3.6-10.2)
[2020-03-09 05:47] LABS: CREATININE 0.7 mg/dL (0.6-1.3); MAGNESIUM 2.3 mg/dL (1.8-2.4); POTASSIUM 4.3 mmol/L (3.5-5.1)
[2020-03-09] MEDS: PANTOPRAZOLE ORAL SUSPENSION 40 MG SUSPDR.PKT GT SCH (06:05)
--- NOTE | 2020-03-09 06:52 | NUR ---
Received call back from from Felipe Glez regarding CO2 level of 41 - per N.P. to discuss results with Dr. Gottlieb ([facility]).
[2020-03-09 07:52] LABS: ABG BASE EXCESS 7.4 mmol/L; ABG HCO3 35.1 mmol/L; ABG PCO2 63.6 mmHg (35.0-45.0); ABG PO2 66.6 mmHg (75.0-100.0); ABG SITE RIGHT RADIAL; COHb 1.3 % (0.5-1.5); MetHb 0.3 % (0.0-1.5); O2Hb 90.9 % (94.0-97.0); VENT MODE VENT - A/C; VT, ABG 500 mL
[2020-03-09] MEDS: PROTEIN SUPPLEMENT (PROSTAT) 30 ML LIQUID GT SCH ×2 (08:05→20:14)
[2020-03-09] MEDS: ASPIRIN 81 MG TAB.CHEW PO SCH (08:06)
[2020-03-09] MEDS: DEXAMETHASONE SOD PHOSPHATE 10 MG INJ IV SCH (08:06)
[2020-03-09] MEDS: ENOXAPARIN SODIUM 60 MG/0.6 ML DISP.SYRIN SQ SCH ×2 (08:07→20:13)
[2020-03-09] MEDS: VITAL AF 1.2 1,000 ML LIQUID GT PRN (08:45)
[2020-03-09] MEDS: AMIODARONE HCL IV 450 MG in IV DEXTROSE 5% 250 ML IV PRN (11:21)
[2020-03-09] MEDS ORDERED: ACETAzolamide 250 MG TABLET PO ONE (14:30)
--- NOTE | 2020-03-09 14:30 | NUR ---
PT.WAS SEEN BY RONY CHILDS MD WITH NEW ORDERS.
--- NOTE | 2020-03-09 17:30 | NUR ---
PT. WAS SEEN BY BROCK PIERCE MD WITH NEW ORDERS.
[2020-03-09] MEDS: AMIODARONE HCL 200 MG TABLET NG SCH (20:14)
[2020-03-09] MEDS ORDERED: AMIODARONE HCL 200 MG TABLET NG SCH (21:00)
[2020-03-10] VITALS (26 sets, daily range): BP systolic 86–118; BP diastolic 54–74
[2020-03-10] MEDS: IV NORMAL SALINE 250 ML IV PRN (02:12)
[2020-03-10] MEDS: PROPOFOL 100 ML IV PRN ×4 (04:10→23:07)
[2020-03-10] MEDS: CEFEPIME HCL 2 G in IV DEXTROSE 5% 100 ML IV SCH ×3 (04:52→20:22)
[2020-03-10 05:12] LABS: BASOPHILS % (AUTO) 0.3 % (0.0-2.0); EOSINOPHILS % (AUTO) 0.1 % (0.0-7.0); HEMATOCRIT 39.3 % (36.7-47.1); HEMOGLOBIN 12.9 g/dL (12.5-16.3); LYMPHOCYTES # (AUTO) 0.4 K/uL (20.0-40.0); MEAN CORPUSCULAR HEMOGLOBIN 31.3 uug (23.8-33.4); MEAN CORPUSCULAR HGB CONC 33 g/dL (32.5-36.3); MEAN CORPUSCULAR VOLUME 95.4 fL (73.0-96.2); MONOCYTES # (AUTO) 0.5 K/uL (2.0-10.0); MONOCYTES % (AUTO) 3.7 % (0.0-11.0); NEUTROPHILS # (AUTO) 12.2 K/uL (1.8-8.9); NEUTROPHILS % (AUTO) 92.9 % (38.5-71.5); PLATELET COUNT (AUTO) 143 K/uL (152-348); RED BLOOD CELL COUNT(AUTO) 4.12 MIL/uL (4.06-5.63); WHITE BLOOD COUNT (AUTO) 13.1 K/uL (3.6-10.2)
[2020-03-10 05:40] LABS: BILIRUBIN,DIRECT 0.2 mg/dL (0.0-0.2); BILIRUBIN,TOTAL 0.5 mg/dL (0.2-1.0); CREATININE 0.8 mg/dL (0.6-1.3); MAGNESIUM 2.4 mg/dL (1.8-2.4); PHOSPHOROUS 3.5 mg/dL (2.5-4.9); POTASSIUM 4.4 mmol/L (3.5-5.1); TOTAL PROTEIN, SERUM 6.2 g/dL (6.4-8.2)
[2020-03-10] MEDS: PANTOPRAZOLE ORAL SUSPENSION 40 MG SUSPDR.PKT GT SCH (06:14)
--- NOTE | 2020-03-10 07:05 | NUR ---
Condition unchanged. Remains on same vent settings: AC=28, SC=406fx, PEEP=10 and FIO2=60%. O2 saturations above 95%. 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 Off Amiodarone drip since 209903/09/20; on Amiodarone via NGT. Adequately sedated with Diprivan drip at 50 mcg/kg/min. COVID isolation maintained.
[2020-03-10] MEDS: AMIODARONE HCL 200 MG TABLET NG SCH ×2 (07:56→20:23)
[2020-03-10] MEDS: DEXAMETHASONE SOD PHOSPHATE 10 MG INJ IV SCH (07:56)
[2020-03-10] MEDS: ASPIRIN 81 MG TAB.CHEW PO SCH (07:56)
[2020-03-10] MEDS: PROTEIN SUPPLEMENT (PROSTAT) 30 ML LIQUID GT SCH ×2 (07:57→20:22)
[2020-03-10] MEDS: ENOXAPARIN SODIUM 60 MG/0.6 ML DISP.SYRIN SQ SCH ×2 (07:57→20:25)
[2020-03-10] MEDS: VITAL AF 1.2 1,000 ML LIQUID GT PRN (08:54)
[2020-03-10 09:38] LABS: ABG HCO3 32.8 mmol/L; ABG PCO2 63.8 mmHg (35.0-45.0); ABG PH 7.329 (7.350-7.450); ABG PO2 66.1 mmHg (75.0-100.0); ABG SITE RIGHT RADIAL; COHb 1.3 % (0.5-1.5); MetHb 0.3 % (0.0-1.5); O2Hb 90.4 % (94.0-97.0); VENT MODE VENT - A/C; VT, ABG 500 mL
--- NOTE | 2020-03-10 11:30 | NUR ---
PT.WAS SEEN BY FABIANO UMANA MSN
--- NOTE | 2020-03-10 13:13 | NUR ---
PT. WAS SEEN BY NICHOLE PINZON DNP
--- NOTE | 2020-03-10 13:56 | NUR ---
PT.WAS SEEN BY
--- NOTE | 2020-03-10 20:30 | NUR ---
ROUNDS MADE PATIENT IN BED ORALLY INTUBATED ETT 7.5,24 CM LIP ON AC 28 /500/60%,PEEP 10 TOLERATING VENT SETTINGS .ORAL CARE DONE BY RESPIRATORY THERAPIST .ON TF OGT VITAL 25 CC/ HR FLUSHED WITH WATER PATENT . HOB UP . FACIAL GRIMACE NOTED WITH PAIN ,PUPILS BILATERALLY PUPILS SLUGGISHLY REACTIVE . AFEBRILE TEMP 98.3 . BP 124/76. HR SR 72.CONTINUE TO MONITOR V/S AND LEVELS
[2020-03-11] VITALS (23 sets, daily range): BP systolic 89–119; BP diastolic 55–71
[2020-03-11] MEDS: IV NORMAL SALINE 250 ML IV PRN (04:52)
[2020-03-11] MEDS: CEFEPIME HCL 2 G in IV DEXTROSE 5% 100 ML IV SCH ×3 (04:52→21:21)
[2020-03-11] MEDS: PROPOFOL 100 ML IV PRN ×4 (04:52→21:19)
--- NOTE | 2020-03-11 05:00 | NUR ---
am care done ,bath patient changed soiled linens and gown ,oral car done suction via ett and via mouth .
[2020-03-11] MEDS: PANTOPRAZOLE ORAL SUSPENSION 40 MG SUSPDR.PKT GT SCH ×2 (06:07→08:15)
--- NOTE | 2020-03-11 06:11 | NUR ---
weight patient via bedscale 209 lbs.
[2020-03-11 06:19] LABS: BASOPHILS # (AUTO) 0.2 K/uL (0.0-8.0); BASOPHILS % (AUTO) 1.1 % (0.0-2.0); EOSINOPHILS # (AUTO) 0.1 K/uL (0.0-0.7); EOSINOPHILS % (AUTO) 0.5 % (0.0-7.0); HEMATOCRIT 43.3 % (36.7-47.1); HEMOGLOBIN 14.3 g/dL (12.5-16.3); LYMPHOCYTES # (AUTO) 0.5 K/uL (20.0-40.0); LYMPHOCYTES % (AUTO) 3.3 % (20.5-51.5); MEAN CORPUSCULAR HEMOGLOBIN 31.6 uug (23.8-33.4); MEAN CORPUSCULAR HGB CONC 33 g/dL (32.5-36.3); MEAN CORPUSCULAR VOLUME 95.9 fL (73.0-96.2); MONOCYTES # (AUTO) 0.7 K/uL (2.0-10.0); MONOCYTES % (AUTO) 4.9 % (0.0-11.0); NEUTROPHILS # (AUTO) 13.3 K/uL (1.8-8.9); NEUTROPHILS % (AUTO) 90.2 % (38.5-71.5); PLATELET COUNT (AUTO) 172 K/uL (152-348); RED BLOOD CELL COUNT(AUTO) 4.51 MIL/uL (4.06-5.63); WHITE BLOOD COUNT (AUTO) 14.7 K/uL (3.6-10.2)
[2020-03-11 06:23] LABS: CREATININE 0.7 mg/dL (0.6-1.3); MAGNESIUM 2.6 mg/dL (1.8-2.4); PHOSPHOROUS 2.8 mg/dL (2.5-4.9); POTASSIUM 4.6 mmol/L (3.5-5.1)
[2020-03-11] MEDS: VITAL AF 1.2 1,000 ML LIQUID GT PRN (08:00)
[2020-03-11] MEDS: ASPIRIN 81 MG TAB.CHEW PO SCH (08:15)
[2020-03-11] MEDS: AMIODARONE HCL 200 MG TABLET NG SCH ×2 (08:16→21:19)
[2020-03-11] MEDS: PROTEIN SUPPLEMENT (PROSTAT) 30 ML LIQUID GT SCH ×2 (08:16→21:22)
[2020-03-11] MEDS: DEXAMETHASONE SOD PHOSPHATE 10 MG INJ IV SCH (08:16)
[2020-03-11] MEDS: ENOXAPARIN SODIUM 60 MG/0.6 ML DISP.SYRIN SQ SCH ×2 (08:17→21:19)
[2020-03-11 08:30] LABS: ABG BASE EXCESS 5.2 mmol/L; ABG HCO3 32.5 mmol/L; ABG PCO2 59.6 mmHg (35.0-45.0); ABG PH 7.355 (7.350-7.450); ABG PO2 68.6 mmHg (75.0-100.0); ABG SITE RIGHT RADIAL; COHb 1.8 % (0.5-1.5); MetHb 0.2 % (0.0-1.5); O2Hb 91.1 % (94.0-97.0); VENT MODE VENT - A/C; VT, ABG 500 mL
--- NOTE | 2020-03-11 11:03 | NUR ---
CHRISTINA Peterson here to see pt. Full report given. New orders received.
--- NOTE | 2020-03-11 13:57 | NUR ---
Dr. Gottlieb here to see pt. Full report given. New orders received.
--- NOTE | 2020-03-11 20:00 | NUR ---
rounds made patient in bed orally intubated ,tolerating vent settings ,saturation 100 % RR 30, UNALAKLEET up aspiration precaution observed .
--- NOTE | 2020-03-11 22:20 | NUR ---
turned and reposition patient .oral care done and due medication given .
[2020-03-12] VITALS (24 sets, daily range): BP systolic 94–115; BP diastolic 56–72
[2020-03-12] MEDS: PROPOFOL 100 ML IV PRN ×4 (04:10→23:26)
[2020-03-12] MEDS: CEFEPIME HCL 2 G in IV DEXTROSE 5% 100 ML IV SCH ×3 (04:39→20:16)
[2020-03-12] MEDS: IV NORMAL SALINE 250 ML IV PRN (04:40)
--- NOTE | 2020-03-12 06:00 | NUR ---
am care done .bath patient changed soiled linens and gown . due medication given and scan. v/s done . uneventful night . patient tolerated vent settings .
[2020-03-12 06:03] LABS: BASOPHILS % (AUTO) 0.1 % (0.0-2.0); EOSINOPHILS % (AUTO) 0.2 % (0.0-7.0); HEMATOCRIT 42.8 % (36.7-47.1); HEMOGLOBIN 14.3 g/dL (12.5-16.3); LYMPHOCYTES # (AUTO) 0.6 K/uL (20.0-40.0); LYMPHOCYTES % (AUTO) 5.6 % (20.5-51.5); MEAN CORPUSCULAR HGB CONC 33 g/dL (32.5-36.3); MEAN CORPUSCULAR VOLUME 95.9 fL (73.0-96.2); MONOCYTES # (AUTO) 0.4 K/uL (2.0-10.0); MONOCYTES % (AUTO) 4.2 % (0.0-11.0); NEUTROPHILS # (AUTO) 9.6 K/uL (1.8-8.9); NEUTROPHILS % (AUTO) 89.9 % (38.5-71.5); PLATELET COUNT (AUTO) 130 K/uL (152-348); RED BLOOD CELL COUNT(AUTO) 4.47 MIL/uL (4.06-5.63); WHITE BLOOD COUNT (AUTO) 10.6 K/uL (3.6-10.2)
[2020-03-12 06:12] LABS: CARBON DIOXIDE 33 mmol/L (21-32); CHLORIDE 111 mmol/L (98-107); CREATININE 0.5 mg/dL (0.6-1.3); GLUCOSE 120 mg/dL (74-106); POTASSIUM 4.9 mmol/L (3.5-5.1); UREA NITROGEN, BLOOD 42 mg/dL (7-18)
[2020-03-12 06:21] LABS: ABG BASE EXCESS 3.8 mmol/L; ABG PCO2 50.5 mmHg (35.0-45.0); ABG PH 7.391 (7.350-7.450); ABG SITE RIGHT RADIAL; ABG TOTAL HEMOGLOBIN 16.2 G/dL (13.5-18.0); COHb 1.4 % (0.5-1.5); MetHb 0.3 % (0.0-1.5); O2Hb 96.3 % (94.0-97.0); VENT MODE VENT - A/C; VT, ABG 550 mL
[2020-03-12] MEDS: VITAL AF 1.2 1,000 ML LIQUID GT PRN (08:00)
[2020-03-12] MEDS: ASPIRIN 81 MG TAB.CHEW PO SCH (08:08)
[2020-03-12] MEDS: DEXAMETHASONE SOD PHOSPHATE 10 MG INJ IV SCH (08:08)
[2020-03-12] MEDS: AMIODARONE HCL 200 MG TABLET NG SCH ×2 (08:08→20:16)
[2020-03-12] MEDS: ENOXAPARIN SODIUM 60 MG/0.6 ML DISP.SYRIN SQ SCH ×2 (08:09→20:13)
[2020-03-12] MEDS: PROTEIN SUPPLEMENT (PROSTAT) 30 ML LIQUID GT SCH ×2 (08:09→20:15)
--- NOTE | 2020-03-12 10:25 | NUR ---
Dr. Gottlieb here to see pt. Full report given. New orders received.
[2020-03-13] VITALS (23 sets, daily range): BP systolic 97–115; BP diastolic 60–74
--- NOTE | 2020-03-13 02:00 | NUR ---
During AM care, Pt noted with Hematuria on FC, no blood clots. Will endorse to AM Shift RN
[2020-03-13] MEDS: CEFEPIME HCL 2 G in IV DEXTROSE 5% 100 ML IV SCH ×3 (04:53→20:24)
[2020-03-13 05:07] LABS: BASOPHILS % (AUTO) 0.3 % (0.0-2.0); EOSINOPHILS # (AUTO) 0.1 K/uL (0.0-0.7); EOSINOPHILS % (AUTO) 0.5 % (0.0-7.0); HEMOGLOBIN 13.7 g/dL (12.5-16.3); LYMPHOCYTES # (AUTO) 0.6 K/uL (20.0-40.0); MEAN CORPUSCULAR HEMOGLOBIN 31.7 uug (23.8-33.4); MEAN CORPUSCULAR HGB CONC 34 g/dL (32.5-36.3); MEAN CORPUSCULAR VOLUME 94.8 fL (73.0-96.2); MONOCYTES # (AUTO) 0.4 K/uL (2.0-10.0); MONOCYTES % (AUTO) 3.7 % (0.0-11.0); NEUTROPHILS # (AUTO) 10.7 K/uL (1.8-8.9); NEUTROPHILS % (AUTO) 90.5 % (38.5-71.5); PLATELET COUNT (AUTO) 141 K/uL (152-348); RED BLOOD CELL COUNT(AUTO) 4.32 MIL/uL (4.06-5.63); WHITE BLOOD COUNT (AUTO) 11.9 K/uL (3.6-10.2)
[2020-03-13 05:17] LABS: CREATININE 0.6 mg/dL (0.6-1.3); MAGNESIUM 2.2 mg/dL (1.8-2.4); PHOSPHOROUS 2.8 mg/dL (2.5-4.9); POTASSIUM 4.1 mmol/L (3.5-5.1)
[2020-03-13] MEDS: PROPOFOL 100 ML IV PRN ×3 (05:23→17:50)
[2020-03-13] MEDS: PANTOPRAZOLE ORAL SUSPENSION 40 MG SUSPDR.PKT GT SCH (06:08)
--- NOTE | 2020-03-13 06:58 | NUR ---
Condition unchanged. Remains on same vent settings: AC=28, TV=50ml, PEEP=10 and FIO2=60%. O2 saturations above 95%. 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 Off Amiodarone drip since 209903/09/20; on Amiodarone via NGT. Adequately sedated with Diprivan drip at 50 mcg/kg/min. COVID isolation maintained. Addendum: 03/13/20 at 0700 by LAURA OLEA LVN Condition unchanged. Remains on same vent settings: AC=28, HJ=296wb, PEEP=8 and FIO2=45%. O2 saturations above 95%. pre school teacher: SR. On Amiodarone via OGT. Adequately sedated with Diprivan drip at 40 mcg/kg/min. COVID isolation maintained.
[2020-03-13] MEDS: AMIODARONE HCL 200 MG TABLET NG SCH ×2 (08:11→20:24)
[2020-03-13] MEDS: ASPIRIN 81 MG TAB.CHEW PO SCH (08:11)
[2020-03-13] MEDS: DEXAMETHASONE SOD PHOSPHATE 10 MG INJ IV SCH (08:11)
[2020-03-13] MEDS: ENOXAPARIN SODIUM 60 MG/0.6 ML DISP.SYRIN SQ SCH ×2 (08:14→20:29)
[2020-03-13] MEDS: VITAL AF 1.2 1,000 ML LIQUID GT PRN (08:15)
[2020-03-13 08:19] LABS: ABG BASE EXCESS 5.2 mmol/L; ABG HCO3 30.4 mmol/L; ABG PCO2 46.5 mmHg (35.0-45.0); ABG PH 7.433 (7.350-7.450); ABG PO2 104.4 mmHg (75.0-100.0); ABG SITE RIGHT RADIAL; ABG TOTAL HEMOGLOBIN 14.2 G/dL (13.5-18.0); COHb 1.6 % (0.5-1.5); MetHb 0.2 % (0.0-1.5); O2Hb 96.2 % (94.0-97.0); VENT MODE VENT - A/C; VT, ABG 550 mL
[2020-03-13] MEDS: PROTEIN SUPPLEMENT (PROSTAT) 30 ML LIQUID GT SCH ×2 (08:52→20:26)
--- NOTE | 2020-03-13 10:50 | NUR ---
Pulmonary services, Dr. Gottlieb in the unit to see and examine pt. during report informed of oral sores and moderate bleeding both orally and through the ETT. See order hx.
--- NOTE | 2020-03-13 19:30 | NUR ---
Report received. Patient admitted 02/20/20 DX: ARTHUR PNA, respiratory failure. Orally intubated and sedated. Vent settings: AC=24, KP=750 ml, FIO2=45% and PEEP=8 cm. O2 saturation 97%. On continuous Diprivan drip at 40 mcg/kg/min via FUENTES PICC line. Addendum: 03/13/20 at 1939 by SUNITA RAMSEY RN Amended: Links added.
--- NOTE | 2020-03-13 21:00 | NUR ---
Patient's gynuab-pf-yga Holly valencia. Claimed she's the family spoke person and requesting to talk to the MDs in am Tel# [phone]. Advised of patient's condition. Addendum: 03/13/20 at 2224 by SUNITA RAMSEY RN Amended: Links added. Addendum: 03/13/20 at 2251 by SUNITA RAMSEY RN Amended: Links added. Addendum: 03/13/20 at 2252 by SUNITA RAMSEY RN Amended: Links added. Addendum: 03/13/20 at 2251 by SUNITA RAMSEY RN Amended: Links added. Addendum: 03/13/20 at 2252 by SUNITA RAMSEY RN Amended: Links added. Addendum: 03/13/20 at 1925 by SUNITA RAMSEY RN Amended: Links added.
--- NOTE | 2020-03-13 23:20 | NUR ---
O2 sat only around 92%. Galo DUBON here; FIO2 increased to 50%. O2 saturations improved. Addendum: 03/14/20 at 0053 by SUNITA RAMSEY RN Amended: Links added.
[2020-03-14] VITALS (24 sets, daily range): BP systolic 87–115; BP diastolic 56–74
[2020-03-14] MEDS: PROPOFOL 100 ML IV PRN ×4 (00:32→18:48)
--- NOTE | 2020-03-14 03:30 | NUR ---
O2 saturations above (4%; FIO2 titrated back down to 45%; will monitor. Tolerating tube feedings well. Addendum: 03/16/20 at 0239 by SUNITA RAMSEY RN O2 saturations above 94%; FIO2 titrated back down to 45%.
[2020-03-14] MEDS: IV NORMAL SALINE 250 ML IV PRN (04:00)
[2020-03-14] MEDS: CEFEPIME HCL 2 G in IV DEXTROSE 5% 100 ML IV SCH ×2 (04:08→12:48)
[2020-03-14 05:15] LABS: BASOPHILS % (AUTO) 0.1 % (0.0-2.0); EOSINOPHILS # (AUTO) 0.1 K/uL (0.0-0.7); EOSINOPHILS % (AUTO) 0.6 % (0.0-7.0); HEMATOCRIT 41.1 % (36.7-47.1); HEMOGLOBIN 13.8 g/dL (12.5-16.3); LYMPHOCYTES # (AUTO) 0.6 K/uL (20.0-40.0); LYMPHOCYTES % (AUTO) 4.7 % (20.5-51.5); MEAN CORPUSCULAR HEMOGLOBIN 31.9 uug (23.8-33.4); MEAN CORPUSCULAR HGB CONC 33 g/dL (32.5-36.3); MEAN CORPUSCULAR VOLUME 95.3 fL (73.0-96.2); MONOCYTES # (AUTO) 0.6 K/uL (2.0-10.0); MONOCYTES % (AUTO) 4.2 % (0.0-11.0); NEUTROPHILS # (AUTO) 12.2 K/uL (1.8-8.9); NEUTROPHILS % (AUTO) 90.4 % (38.5-71.5); PLATELET COUNT (AUTO) 141 K/uL (152-348); RED BLOOD CELL COUNT(AUTO) 4.32 MIL/uL (4.06-5.63); WHITE BLOOD COUNT (AUTO) 13.5 K/uL (3.6-10.2)
[2020-03-14 05:32] LABS: CREATININE 0.6 mg/dL (0.6-1.3); MAGNESIUM 2.2 mg/dL (1.8-2.4); POTASSIUM 4.1 mmol/L (3.5-5.1)
[2020-03-14] MEDS: PANTOPRAZOLE ORAL SUSPENSION 40 MG SUSPDR.PKT GT SCH (06:21)
--- NOTE | 2020-03-14 06:48 | NUR ---
Adequately sedated with Diprivan drip at 40 mcg/kg/min. VS stable. Condition unchanged. Addendum: 03/14/20 at 0648 by SUNITA RAMSEY RN Amended: Links added.
[2020-03-14] MEDS: DEXAMETHASONE SOD PHOSPHATE 10 MG INJ IV SCH (08:11)
[2020-03-14] MEDS: AMIODARONE HCL 200 MG TABLET NG SCH ×2 (08:11→20:03)
[2020-03-14] MEDS: PROTEIN SUPPLEMENT (PROSTAT) 30 ML LIQUID GT SCH ×2 (08:11→20:04)
[2020-03-14] MEDS: ENOXAPARIN SODIUM 60 MG/0.6 ML DISP.SYRIN SQ SCH ×2 (08:12→20:00)
[2020-03-14 10:05] LABS: ABG BASE EXCESS 2.7 mmol/L; ABG HCO3 29.4 mmol/L; ABG PCO2 53.9 mmHg (35.0-45.0); ABG PH 7.355 (7.350-7.450); ABG PO2 50.4 mmHg (75.0-100.0); ABG SITE RIGHT RADIAL; ABG TOTAL HEMOGLOBIN 14.4 G/dL (13.5-18.0); COHb 1.8 % (0.5-1.5); MetHb 0.2 % (0.0-1.5); O2Hb 81.6 % (94.0-97.0); VENT MODE VENT - A/C; VT, ABG 550 mL
--- NOTE | 2020-03-14 11:00 | NUR ---
Attending N.P. in to examine pt. orders to continue with care plan received.
--- NOTE | 2020-03-14 12:30 | NUR ---
Respiratory services, Dr. Gottlieb in to examine pt.
--- NOTE | 2020-03-14 18:46 | NUR ---
As informed by attending Sharyn. She spoke with pt's son regarding possible trache and peg placement and at this time awaiting pt's son decision as He is consulting with extended family.
--- NOTE | 2020-03-14 19:05 | NUR ---
received patient sedated on ac 24 tv 500 p 8 fio2 of 55 % , ngt placement checked and no residual noted , feeding vital af at 25 ml , paz and picc line intact , mouth is with sore and old blood noted
[2020-03-15] VITALS (24 sets, daily range): BP systolic 93–139; BP diastolic 57–70
[2020-03-15] MEDS: PROPOFOL 100 ML IV PRN ×4 (01:21→19:20)
[2020-03-15] MEDS: IV NORMAL SALINE 250 ML IV PRN (04:18)
[2020-03-15 05:17] LABS: BASOPHILS # (AUTO) 0.1 K/uL (0.0-8.0); BASOPHILS % (AUTO) 0.4 % (0.0-2.0); EOSINOPHILS % (AUTO) 0.1 % (0.0-7.0); HEMATOCRIT 38.6 % (36.7-47.1); HEMOGLOBIN 12.8 g/dL (12.5-16.3); LYMPHOCYTES # (AUTO) 0.9 K/uL (20.0-40.0); LYMPHOCYTES % (AUTO) 5.3 % (20.5-51.5); MEAN CORPUSCULAR HEMOGLOBIN 31.8 uug (23.8-33.4); MEAN CORPUSCULAR HGB CONC 33 g/dL (32.5-36.3); MEAN CORPUSCULAR VOLUME 96.1 fL (73.0-96.2); MONOCYTES # (AUTO) 0.6 K/uL (2.0-10.0); MONOCYTES % (AUTO) 3.7 % (0.0-11.0); NEUTROPHILS # (AUTO) 14.6 K/uL (1.8-8.9); NEUTROPHILS % (AUTO) 90.5 % (38.5-71.5); PLATELET COUNT (AUTO) 158 K/uL (152-348); RED BLOOD CELL COUNT(AUTO) 4.02 MIL/uL (4.06-5.63); WHITE BLOOD COUNT (AUTO) 16.2 K/uL (3.6-10.2)
--- NOTE | 2020-03-15 06:00 | NUR ---
sedated , responds to deep pain by withdrawal , on propofol on 40 mcg , ngt clamped , placement checked and no residual noted , picc line and paz intact , no fever , sore in the mouth and lip with old dry blood noted .
[2020-03-15] MEDS: PANTOPRAZOLE ORAL SUSPENSION 40 MG SUSPDR.PKT GT SCH ×2 (06:04→08:09)
[2020-03-15 06:17] LABS: CREATININE 0.7 mg/dL (0.6-1.3); MAGNESIUM 2.1 mg/dL (1.8-2.4); PHOSPHOROUS 2.8 mg/dL (2.5-4.9); POTASSIUM 4.2 mmol/L (3.5-5.1)
[2020-03-15] MEDS: DEXAMETHASONE SOD PHOSPHATE 10 MG INJ IV SCH (08:06)
[2020-03-15] MEDS: PROTEIN SUPPLEMENT (PROSTAT) 30 ML LIQUID GT SCH ×2 (08:06→20:57)
[2020-03-15] MEDS: ENOXAPARIN SODIUM 60 MG/0.6 ML DISP.SYRIN SQ SCH ×2 (08:08→20:57)
[2020-03-15 08:26] LABS: ABG BASE EXCESS 4.1 mmol/L; ABG HCO3 29.3 mmol/L; ABG PCO2 45.5 mmHg (35.0-45.0); ABG PH 7.426 (7.350-7.450); ABG PO2 60.6 mmHg (75.0-100.0); ABG SITE LEFT RADIAL; ABG TOTAL HEMOGLOBIN 14.3 G/dL (13.5-18.0); COHb 1.9 % (0.5-1.5); MetHb 0.1 % (0.0-1.5); O2Hb 89.3 % (94.0-97.0); VENT MODE VENT - A/C; VT, ABG 550 mL
[2020-03-15] MEDS: AMIODARONE HCL 200 MG TABLET NG SCH ×2 (09:00→20:55)
[2020-03-15] MEDS ORDERED: PETROLATUM,WHITE JELLY 28.35 GM TUBE TP PRN (09:15)
--- NOTE | 2020-03-15 12:15 | NUR ---
Madelyn Lopez in the unit to see patient. she spoke to son again today. They are requesting medical records to ask of another family friend doctor they have about trach and peg. Will have an answer by friday.
--- NOTE | 2020-03-15 12:34 | NUR ---
louis from ID informed about multiple bleeding mouth lesions. will inform doctor fran regarding treatment plan for the sores.
--- NOTE | 2020-03-15 16:23 | NUR ---
DOCTOR CHILDS IN THE UNIT TO ROUND ON THE PATIENT. INFORMED THAT WE ARE WAITING FOR TRACH AND PEG RESPONSE FROM THE FAMILY.
--- NOTE | 2020-03-15 19:30 | NUR ---
Report received. Patient admitted for COVID-19 and PNA. Orally intubated and to mechanical ventilator with same settings. Sedated; on continuous Diprivan drip at 40 mcg/kg/min. O2 saturations above 94%. Assessment completed and documented. Addendum: 03/16/20 at 0248 by SUNITA RAMSEY RN Amended: Links added.
[2020-03-15] MEDS: ACYCLOVIR IV 500 MG in IV DEXTROSE 5% 100 ML IV SCH (21:48)
[2020-03-16] VITALS (24 sets, daily range): BP systolic 92–120; BP diastolic 57–71
[2020-03-16] MEDS: PROPOFOL 100 ML IV PRN ×3 (02:14→21:53)
[2020-03-16] MEDS: IV NORMAL SALINE 250 ML IV PRN (02:16)
[2020-03-16] MEDS: ACYCLOVIR IV 500 MG in IV DEXTROSE 5% 100 ML IV SCH ×3 (05:11→21:53)
[2020-03-16 05:18] LABS: BASOPHILS % (AUTO) 0.1 % (0.0-2.0); EOSINOPHILS % (AUTO) 0.3 % (0.0-7.0); HEMATOCRIT 40.4 % (36.7-47.1); HEMOGLOBIN 13.5 g/dL (12.5-16.3); LYMPHOCYTES # (AUTO) 0.5 K/uL (20.0-40.0); LYMPHOCYTES % (AUTO) 3.2 % (20.5-51.5); MEAN CORPUSCULAR HEMOGLOBIN 31.9 uug (23.8-33.4); MEAN CORPUSCULAR HGB CONC 33 g/dL (32.5-36.3); MEAN CORPUSCULAR VOLUME 95.5 fL (73.0-96.2); MONOCYTES # (AUTO) 0.8 K/uL (2.0-10.0); MONOCYTES % (AUTO) 4.8 % (0.0-11.0); NEUTROPHILS # (AUTO) 14.6 K/uL (1.8-8.9); NEUTROPHILS % (AUTO) 91.6 % (38.5-71.5); PLATELET COUNT (AUTO) 182 K/uL (152-348); RED BLOOD CELL COUNT(AUTO) 4.22 MIL/uL (4.06-5.63); WHITE BLOOD COUNT (AUTO) 15.9 K/uL (3.6-10.2)
[2020-03-16 05:34] LABS: CREATININE 0.6 mg/dL (0.6-1.3); MAGNESIUM 2.2 mg/dL (1.8-2.4); PHOSPHOROUS 3.1 mg/dL (2.5-4.9); POTASSIUM 4.1 mmol/L (3.5-5.1)
--- NOTE | 2020-03-16 06:15 | NUR ---
Stable on the same vent settings. O2 saturations above 94% on FIO2=55%. Diprivan drip decreased to 35 mcg/kg/min. With facial grimacing to pain, but doesn't open eyes. Monitor: SR rate 60's-70's. COVID isolation maintained. Addendum: 03/16/20 at 0616 by SUNITA RAMSEY RN Amended: Links added.
[2020-03-16] MEDS: PANTOPRAZOLE ORAL SUSPENSION 40 MG SUSPDR.PKT GT SCH (07:01)
[2020-03-16] MEDS: PROTEIN SUPPLEMENT (PROSTAT) 30 ML LIQUID GT SCH ×2 (08:21→20:43)
[2020-03-16] MEDS: AMIODARONE HCL 200 MG TABLET NG SCH ×2 (08:21→20:43)
[2020-03-16] MEDS: DEXAMETHASONE SOD PHOSPHATE 10 MG INJ IV SCH (08:22)
[2020-03-16] MEDS: ENOXAPARIN SODIUM 60 MG/0.6 ML DISP.SYRIN SQ SCH ×2 (08:22→20:45)
[2020-03-16 10:11] LABS: ABG HCO3 30.8 mmol/L; ABG PCO2 49.4 mmHg (35.0-45.0); ABG PH 7.412 (7.350-7.450); ABG PO2 52.2 mmHg (75.0-100.0); ABG SITE RIGHT RADIAL; ABG TOTAL HEMOGLOBIN 14.3 G/dL (13.5-18.0); COHb 1.8 % (0.5-1.5); MetHb 0.4 % (0.0-1.5); O2Hb 86.7 % (94.0-97.0); VENT MODE VENT - A/C; VT, ABG 550 mL
--- NOTE | 2020-03-16 17:38 | NUR ---
Dr. Gottlieb here to see pt. Full report given. New orders received.
[2020-03-16] MEDS: VITAL AF 1.2 1,000 ML LIQUID GT PRN (18:22)
--- NOTE | 2020-03-16 19:10 | NUR ---
no fever , noted , mouth sores present with old blood , moistened with soft cloth and suctioned with pink tinged secretions orally
--- NOTE | 2020-03-16 19:10 | NUR ---
received patient sedated on propofol at 35 mcg , ogt , feeding at 25 ml , placement checked and no residual noted , paz and picc line intact , no spontaneous eye opening , withdraws to deep pain , vent setting of ac 20 tv 550 p 8 fio2 55 %
[2020-03-16] MEDS ORDERED: Z GUARD REMEDY PASTE 57 GM TUBE TOP PRN (19:15)
[2020-03-17] VITALS (24 sets, daily range): BP systolic 99–115; BP diastolic 43–73
[2020-03-17] MEDS: PROPOFOL 100 ML IV PRN ×3 (03:39→19:07)
[2020-03-17] MEDS: ACYCLOVIR IV 500 MG in IV DEXTROSE 5% 100 ML IV SCH ×3 (05:04→22:02)
[2020-03-17 05:47] LABS: BASOPHILS # (AUTO) 0.1 K/uL (0.0-8.0); BASOPHILS % (AUTO) 0.6 % (0.0-2.0); EOSINOPHILS # (AUTO) 0.6 K/uL (0.0-0.7); EOSINOPHILS % (AUTO) 3.3 % (0.0-7.0); LYMPHOCYTES # (AUTO) 0.5 K/uL (20.0-40.0); LYMPHOCYTES % (AUTO) 3.2 % (20.5-51.5); MEAN CORPUSCULAR HEMOGLOBIN 32.3 uug (23.8-33.4); MEAN CORPUSCULAR HGB CONC 33 g/dL (32.5-36.3); MEAN CORPUSCULAR VOLUME 96.6 fL (73.0-96.2); MONOCYTES # (AUTO) 0.8 K/uL (2.0-10.0); MONOCYTES % (AUTO) 4.3 % (0.0-11.0); NEUTROPHILS # (AUTO) 15.4 K/uL (1.8-8.9); NEUTROPHILS % (AUTO) 88.6 % (38.5-71.5); PLATELET COUNT (AUTO) 239 K/uL (152-348); RED BLOOD CELL COUNT(AUTO) 4.35 MIL/uL (4.06-5.63); WHITE BLOOD COUNT (AUTO) 17.4 K/uL (3.6-10.2)
--- NOTE | 2020-03-17 06:00 | NUR ---
non responsive , no spontaneous eye opening , withdraws only to deep pain on propofol at 35 mcg , feeding clamped , vent settings ac 24 tv 550 , p 8 fio2 55 %
[2020-03-17 06:07] LABS: CREATININE 0.6 mg/dL (0.6-1.3); PHOSPHOROUS 2.8 mg/dL (2.5-4.9); POTASSIUM 4.2 mmol/L (3.5-5.1)
[2020-03-17] MEDS: PANTOPRAZOLE ORAL SUSPENSION 40 MG SUSPDR.PKT GT SCH (06:48)
[2020-03-17] MEDS: DEXAMETHASONE SOD PHOSPHATE 10 MG INJ IV SCH (07:39)
[2020-03-17] MEDS: PROTEIN SUPPLEMENT (PROSTAT) 30 ML LIQUID GT SCH ×2 (07:40→22:00)
[2020-03-17] MEDS: AMIODARONE HCL 200 MG TABLET NG SCH ×2 (07:40→21:55)
[2020-03-17] MEDS: ENOXAPARIN SODIUM 60 MG/0.6 ML DISP.SYRIN SQ SCH ×2 (07:45→21:56)
--- NOTE | 2020-03-17 08:00 | NUR ---
Pt noted to have no bowel movement for few days. Tube feeding held. SUPPLY CHAIN ANALYST notified awaiting orders.
[2020-03-17 09:56] LABS: ABG BASE EXCESS 4.4 mmol/L; ABG HCO3 29.8 mmol/L; ABG PCO2 47.1 mmHg (35.0-45.0); ABG PH 7.419 (7.350-7.450); ABG PO2 55.5 mmHg (75.0-100.0); ABG SITE RIGHT RADIAL; ABG TOTAL HEMOGLOBIN 14.4 G/dL (13.5-18.0); COHb 1.7 % (0.5-1.5); MetHb 0.3 % (0.0-1.5); O2Hb 87.3 % (94.0-97.0); VENT MODE VENT - A/C; VT, ABG 550 mL
--- NOTE | 2020-03-17 11:08 | NUR ---
CHRISTINA Joshi here to see pt. Full report given. No new orders received. DRYING SUPERVISOR to call son Mike regarding Trach/PEG placement for pt.
--- NOTE | 2020-03-17 13:07 | NUR ---
Telephone consent for tracheostomy insertion signed by Mike (son). Son verbalized understanding and is aware of the procedure to be ordered and done.
--- NOTE | 2020-03-17 14:42 | NUR ---
Dr. Gottlieb here to see pt. Full SBAR report given to MD. New orders received.
--- NOTE | 2020-03-17 16:54 | NUR ---
Spoke with PIPE MANUFACTURE SUPERVISOR Madelyn Lopez regarding pt's bowel movement patterns. New orders received.
[2020-03-17] MEDS: DOCUSATE SODIUM 100 MG/10 ML LIQUID UDC GT SCH (17:36)
--- NOTE | 2020-03-17 19:20 | NUR ---
recieved patietn sedated , open eyes sluggiisshly , on propopfol at 35 mcg , picc line and paz intact , ogt placement check and no residual noted , mouth with sores and slighlyt with scant blood and old blood mixed , genetly suction orally vent setting pf aac 20 tv 550 p 8 aand 55 % fio2 %
[2020-03-18] VITALS (23 sets, daily range): BP systolic 99–125; BP diastolic 63–73
[2020-03-18] MEDS: PROPOFOL 100 ML IV PRN ×3 (01:41→15:49)
[2020-03-18] MEDS: ACYCLOVIR IV 500 MG in IV DEXTROSE 5% 100 ML IV SCH ×3 (05:14→22:00)
[2020-03-18 05:31] LABS: BASOPHILS % (AUTO) 0.1 % (0.0-2.0); EOSINOPHILS # (AUTO) 0.1 K/uL (0.0-0.7); EOSINOPHILS % (AUTO) 0.5 % (0.0-7.0); HEMATOCRIT 41.3 % (36.7-47.1); HEMOGLOBIN 13.9 g/dL (12.5-16.3); LYMPHOCYTES # (AUTO) 0.7 K/uL (20.0-40.0); LYMPHOCYTES % (AUTO) 4.8 % (20.5-51.5); MEAN CORPUSCULAR HEMOGLOBIN 32.2 uug (23.8-33.4); MEAN CORPUSCULAR HGB CONC 34 g/dL (32.5-36.3); MEAN CORPUSCULAR VOLUME 95.7 fL (73.0-96.2); MONOCYTES # (AUTO) 1.1 K/uL (2.0-10.0); MONOCYTES % (AUTO) 7.2 % (0.0-11.0); NEUTROPHILS # (AUTO) 13.3 K/uL (1.8-8.9); NEUTROPHILS % (AUTO) 87.4 % (38.5-71.5); PLATELET COUNT (AUTO) 206 K/uL (152-348); RED BLOOD CELL COUNT(AUTO) 4.31 MIL/uL (4.06-5.63); WHITE BLOOD COUNT (AUTO) 15.3 K/uL (3.6-10.2)
[2020-03-18 05:41] LABS: ALANINE AMINOTRANSFERASE 69 U/L (16-63); ALKALINE PHOSPHATASE 137 U/L (50-136); ASPARTATE AMINOTRANSFERASE 36 U/L (15-37); BILIRUBIN,DIRECT 0.6 mg/dL (0.0-0.2); BILIRUBIN,TOTAL 0.9 mg/dL (0.2-1.0); CARBON DIOXIDE 32 mmol/L (21-32); CHLORIDE 109 mmol/L (98-107); CREATININE 0.5 mg/dL (0.6-1.3); GLUCOSE 111 mg/dL (74-106); MAGNESIUM 2.1 mg/dL (1.8-2.4); PHOSPHOROUS 2.6 mg/dL (2.5-4.9); POTASSIUM 4.2 mmol/L (3.5-5.1); TOTAL PROTEIN, SERUM 6.5 g/dL (6.4-8.2)
[2020-03-18 05:54] LABS: UREA NITROGEN, BLOOD 27 mg/dL (7-18)
--- NOTE | 2020-03-18 06:00 | NUR ---
patient opens eyes , sluggish response , diprivan is currently decrese to 30 mcg , feeding is off accordding to order , placement and residual checked , no bowel movement , will endorse to day shift , no fever noted , oral sores cleansed with hydrogen peroxide and suctioned gently , vent settings ac 20 tv 550 p 8 and fio2 of 55 %
[2020-03-18] MEDS: PANTOPRAZOLE ORAL SUSPENSION 40 MG SUSPDR.PKT GT SCH (06:10)
[2020-03-18] MEDS: AMIODARONE HCL 200 MG TABLET NG SCH ×2 (08:07→21:50)
[2020-03-18] MEDS: DOCUSATE SODIUM 100 MG/10 ML LIQUID UDC GT SCH (08:07)
[2020-03-18] MEDS: DEXAMETHASONE SOD PHOSPHATE 10 MG INJ IV SCH (08:07)
[2020-03-18] MEDS: PROTEIN SUPPLEMENT (PROSTAT) 30 ML LIQUID GT SCH ×2 (08:08→21:00)
[2020-03-18] MEDS: ENOXAPARIN SODIUM 60 MG/0.6 ML DISP.SYRIN SQ SCH ×2 (08:08→21:51)
[2020-03-18 08:25] LABS: ABG HCO3 27.6 mmol/L; ABG PCO2 42.1 mmHg (35.0-45.0); ABG PH 7.434 (7.350-7.450); ABG SITE RIGHT RADIAL; ABG TOTAL HEMOGLOBIN 14.1 G/dL (13.5-18.0); COHb 1.6 % (0.5-1.5); MetHb 0.2 % (0.0-1.5); VENT MODE VENT - A/C; VT, ABG 550 mL
--- NOTE | 2020-03-18 11:00 | NUR ---
Cardiothoracic Dr. Woodson in the unit to see and examine pt. orders to place pt. NPO Past MN on 03/19/20. and hold blood thinners for procedure for the day.
--- NOTE | 2020-03-18 13:00 | NUR ---
Pulmonary services, Dr. Blevins in the unit to see and examine pt. report given. Orders to continue with care plan received.
--- NOTE | 2020-03-18 14:14 | NUR ---
Dr. Travis in the unit to visit another pt. He was informed as requested by attending Madelyn Wang that this pt. will need PEG placement too. "as stated by him I don't think I have enough GT's for pt's" requested to speak with attending. He reinforced shortage of PEG tubes.
[2020-03-19] VITALS (23 sets, daily range): BP systolic 99–123; BP diastolic 57–75
[2020-03-19] MEDS: PROPOFOL 100 ML IV PRN ×3 (00:59→17:58)
[2020-03-19 05:44] LABS: BASOPHILS % (AUTO) 0.1 % (0.0-2.0); EOSINOPHILS # (AUTO) 0.1 K/uL (0.0-0.7); EOSINOPHILS % (AUTO) 0.5 % (0.0-7.0); HEMATOCRIT 40.1 % (36.7-47.1); HEMOGLOBIN 13.3 g/dL (12.5-16.3); LYMPHOCYTES # (AUTO) 0.5 K/uL (20.0-40.0); LYMPHOCYTES % (AUTO) 3.9 % (20.5-51.5); MEAN CORPUSCULAR HEMOGLOBIN 31.8 uug (23.8-33.4); MEAN CORPUSCULAR HGB CONC 33 g/dL (32.5-36.3); MEAN CORPUSCULAR VOLUME 95.6 fL (73.0-96.2); MONOCYTES # (AUTO) 0.8 K/uL (2.0-10.0); MONOCYTES % (AUTO) 6.4 % (0.0-11.0); NEUTROPHILS # (AUTO) 11.3 K/uL (1.8-8.9); NEUTROPHILS % (AUTO) 89.1 % (38.5-71.5); PLATELET COUNT (AUTO) 232 K/uL (152-348); RED BLOOD CELL COUNT(AUTO) 4.19 MIL/uL (4.06-5.63); WHITE BLOOD COUNT (AUTO) 12.6 K/uL (3.6-10.2)
[2020-03-19 05:58] LABS: CARBON DIOXIDE 33 mmol/L (21-32); CHLORIDE 110 mmol/L (98-107); CREATININE 0.5 mg/dL (0.6-1.3); GLUCOSE 120 mg/dL (74-106); PHOSPHOROUS 2.5 mg/dL (2.5-4.9); POTASSIUM 3.9 mmol/L (3.5-5.1); UREA NITROGEN, BLOOD 27 mg/dL (7-18)
[2020-03-19] MEDS: IV NORMAL SALINE 250 ML IV PRN (06:09)
[2020-03-19] MEDS: PANTOPRAZOLE ORAL SUSPENSION 40 MG SUSPDR.PKT GT SCH (06:13)
[2020-03-19] MEDS: ACYCLOVIR IV 500 MG in IV DEXTROSE 5% 100 ML IV SCH ×3 (06:13→22:03)
[2020-03-19 08:09] LABS: ABG BASE EXCESS 8.4 mmol/L; ABG HCO3 34.8 mmol/L; ABG PCO2 55.7 mmHg (35.0-45.0); ABG PH 7.414 (7.350-7.450); ABG PO2 59.9 mmHg (75.0-100.0); ABG SITE RIGHT RADIAL; ABG TOTAL HEMOGLOBIN 13.7 G/dL (13.5-18.0); COHb 1.6 % (0.5-1.5); MetHb 0.3 % (0.0-1.5); O2Hb 90.4 % (94.0-97.0); VENT MODE VENT - A/C; VT, ABG 550 mL
[2020-03-19] MEDS: DOCUSATE SODIUM 100 MG/10 ML LIQUID UDC GT SCH (08:13)
[2020-03-19] MEDS: DEXAMETHASONE SOD PHOSPHATE 10 MG INJ IV SCH (08:14)
[2020-03-19] MEDS: AMIODARONE HCL 200 MG TABLET NG SCH ×2 (08:14→22:01)
[2020-03-19] MEDS: PROTEIN SUPPLEMENT (PROSTAT) 30 ML LIQUID GT SCH ×3 (08:14→21:00)
[2020-03-19] MEDS: ENOXAPARIN SODIUM 60 MG/0.6 ML DISP.SYRIN SQ SCH ×2 (08:15→20:23)
--- NOTE | 2020-03-19 16:30 | NUR ---
Pulmonary services, Dr. Blevins in the unit report given orders received\.
--- NOTE | 2020-03-19 17:45 | NUR ---
Radio Message Router Dr. High in the unit to examine pt. report given
--- NOTE | 2020-03-19 20:23 | NUR ---
Help Lovenox / pending procedure.
[2020-03-20] VITALS (24 sets, daily range): BP systolic 93–149; BP diastolic 62–90
[2020-03-20] MEDS: PROPOFOL 100 ML IV PRN ×3 (03:56→22:12)
[2020-03-20] MEDS: ACYCLOVIR IV 500 MG in IV DEXTROSE 5% 100 ML IV SCH ×3 (06:09→21:34)
[2020-03-20 06:31] LABS: ABG BASE EXCESS 8.6 mmol/L; ABG HCO3 35.8 mmol/L; ABG PCO2 60.3 mmHg (35.0-45.0); ABG PH 7.391 (7.350-7.450); ABG PO2 73.6 mmHg (75.0-100.0); ABG SITE RIGHT RADIAL; ABG TOTAL HEMOGLOBIN 14.2 G/dL (13.5-18.0); COHb 1.9 % (0.5-1.5); MetHb 0.3 % (0.0-1.5); O2Hb 93.7 % (94.0-97.0); VENT MODE VENT - A/C; VT, ABG 550 mL
--- NOTE | 2020-03-20 07:45 | NUR ---
peg placement completed at bedside. per yvon Corbin to use PEG for meds but wait until tomorrow to use for feeding.
[2020-03-20] MEDS: PANTOPRAZOLE ORAL SUSPENSION 40 MG SUSPDR.PKT GT SCH (08:18)
[2020-03-20] MEDS: AMIODARONE HCL 200 MG TABLET NG SCH ×2 (08:18→20:39)
[2020-03-20] MEDS: DEXAMETHASONE SOD PHOSPHATE 10 MG INJ IV SCH (08:18)
[2020-03-20] MEDS: DOCUSATE SODIUM 100 MG/10 ML LIQUID UDC GT SCH (08:19)
[2020-03-20] MEDS: ENOXAPARIN SODIUM 60 MG/0.6 ML DISP.SYRIN SQ SCH ×2 (08:19→20:38)
[2020-03-20] MEDS: PROTEIN SUPPLEMENT (PROSTAT) 30 ML LIQUID GT SCH ×2 (08:44→20:40)
--- NOTE | 2020-03-20 14:28 | NUR ---
WINDOW TREATMENT INSTALLER Madelyn Lopez in the unit to see pt. full report given
--- NOTE | 2020-03-20 14:50 | NUR ---
Dr. Gottlieb in the unit to see & assess pt. full report given
--- NOTE | 2020-03-20 19:30 | NUR ---
Report received. Patient on COVID-19 isolation orally intubated and to mechanical ventilator with settings as follows: AC=20, FIO2=55%, YJ=467 ml and PEEP=8 cm. O2 saturations above 94%. On continuous Diprivan drip at 30 mcg/kg/min via FUENTES PICC line. Assessment done. Addendum: 03/20/20 at 2205 by SUNITA RAMSEY RN Amended: Links added. Addendum: 03/20/20 at 2207 by SUNITA RAMSEY RN Amended: Links added. Addendum: 03/20/20 at 2208 by SUNITA RAMSEY RN Amended: Links added.
--- NOTE | 2020-03-20 20:00 | NUR ---
RT at bedside; oral care done. Sores on the mouth with minimal to moderate bleeding. Turned and repositioned. S/P GT insertion today; site with bleeding noted. Dressing reinforced. Will notify . Addendum: 03/20/20 at 2207 by SUNITA RAMSEY RN Amended: Links added. Addendum: 03/20/20 at 2208 by SUNITA RAMSEY RN Amended: Links added.
--- NOTE | 2020-03-20 20:30 | NUR ---
Spoke to Dr. Beckwith re: PEG site bleeding and dose of Lovenox 60 at 2100. ordered to hold dose for tonight. Addendum: 03/20/20 at 2208 by SUNITA RAMSEY RN Amended: Links added.
[2020-03-21] VITALS (24 sets, daily range): BP systolic 89–119; BP diastolic 44–76
[2020-03-21] MEDS: IV NORMAL SALINE 250 ML IV PRN (01:20)
[2020-03-21 05:17] LABS: BASOPHILS % (AUTO) 0.3 % (0.0-2.0); EOSINOPHILS % (AUTO) 0.2 % (0.0-7.0); LYMPHOCYTES # (AUTO) 0.5 K/uL (20.0-40.0); LYMPHOCYTES % (AUTO) 4.8 % (20.5-51.5); MEAN CORPUSCULAR HEMOGLOBIN 31.8 uug (23.8-33.4); MEAN CORPUSCULAR HGB CONC 33 g/dL (32.5-36.3); MEAN CORPUSCULAR VOLUME 95.7 fL (73.0-96.2); MONOCYTES % (AUTO) 9.9 % (0.0-11.0); NEUTROPHILS % (AUTO) 84.8 % (38.5-71.5); PLATELET COUNT (AUTO) 233 K/uL (152-348); RED BLOOD CELL COUNT(AUTO) 4.08 MIL/uL (4.06-5.63); WHITE BLOOD COUNT (AUTO) 10.6 K/uL (3.6-10.2)
[2020-03-21 05:26] LABS: CARBON DIOXIDE 37 mmol/L (21-32); CHLORIDE 107 mmol/L (98-107); CREATININE 0.4 mg/dL (0.6-1.3); GLUCOSE 108 mg/dL (74-106); MAGNESIUM 2.1 mg/dL (1.8-2.4); PHOSPHOROUS 2.2 mg/dL (2.5-4.9); POTASSIUM 3.6 mmol/L (3.5-5.1); UREA NITROGEN, BLOOD 27 mg/dL (7-18)
[2020-03-21] MEDS: ACYCLOVIR IV 500 MG in IV DEXTROSE 5% 100 ML IV SCH ×3 (05:51→22:12)
--- NOTE | 2020-03-21 06:00 | NUR ---
Condition unchanged, Remains on Diprivan drip at 30 mcg/kg/min.
[2020-03-21] MEDS: PANTOPRAZOLE ORAL SUSPENSION 40 MG SUSPDR.PKT GT SCH (06:14)
[2020-03-21] MEDS: PROPOFOL 100 ML IV PRN ×3 (06:30→23:54)
[2020-03-21 08:19] LABS: ABG BASE EXCESS 8.9 mmol/L; ABG HCO3 34.7 mmol/L; ABG PCO2 52.2 mmHg (35.0-45.0); ABG PO2 66.9 mmHg (75.0-100.0); ABG SITE LEFT RADIAL; ABG TOTAL HEMOGLOBIN 13.6 G/dL (13.5-18.0); COHb 1.4 % (0.5-1.5); MetHb 0.2 % (0.0-1.5); O2Hb 92.5 % (94.0-97.0); VENT MODE VENT - A/C; VT, ABG 550 mL
[2020-03-21] MEDS: DOCUSATE SODIUM 100 MG/10 ML LIQUID UDC GT SCH (08:36)
[2020-03-21] MEDS: AMIODARONE HCL 200 MG TABLET NG SCH ×2 (08:37→21:07)
[2020-03-21] MEDS: PROTEIN SUPPLEMENT (PROSTAT) 30 ML LIQUID GT SCH ×2 (08:37→21:07)
[2020-03-21] MEDS: DEXAMETHASONE SOD PHOSPHATE 10 MG INJ IV SCH (08:37)
[2020-03-21] MEDS: ENOXAPARIN SODIUM 60 MG/0.6 ML DISP.SYRIN SQ SCH ×2 (08:39→21:10)
[2020-03-21] MEDS: VITAL AF 1.2 1,000 ML LIQUID GT PRN (08:44)
--- NOTE | 2020-03-21 10:22 | NUR ---
TOUR OPERATOR Jaron Solano in the unit to see and assess pt. full report given. Addendum: 03/21/20 at 1124 by DALILA FRAGOSO RN tube feeding stopped and pt placed npo per TOUR OPERATOR order while awaiting confirmation of trach placement date and time.
--- NOTE | 2020-03-21 11:19 | NUR ---
Contacted Dr. Mendez's office to inquire about scheduling of tracheostomy of patient. Message left with switchboard receptionist.
[2020-03-21] MEDS ORDERED: IV LACTATED RINGERS SOLUTION 1,000 ML IV ONE (11:45)
--- NOTE | 2020-03-21 13:10 | NUR ---
Dr. Bell in the unit. asked MD regarding trach placement for pt. No percutaneous trach supply available, unable to do trach at this time
[2020-03-21] MEDS ORDERED: NEUTRA PHOS PACKET GT ONE (15:30)
--- NOTE | 2020-03-21 15:50 | NUR ---
Dr Gottlieb in the unit to see and assess pt. full report given
[2020-03-22] VITALS (23 sets, daily range): BP systolic 95–134; BP diastolic 60–79
--- NOTE | 2020-03-22 01:00 | NUR ---
wean propofol drip to 20 mcg/kg/min.patient sedated rr 20 vent rate 20, no s/s of respiratory and no s/s of mcclain.l
[2020-03-22 05:35] LABS: BASOPHILS % (AUTO) 0.3 % (0.0-2.0); EOSINOPHILS % (AUTO) 0.5 % (0.0-7.0); HEMATOCRIT 38.1 % (36.7-47.1); HEMOGLOBIN 12.6 g/dL (12.5-16.3); LYMPHOCYTES # (AUTO) 0.4 K/uL (20.0-40.0); LYMPHOCYTES % (AUTO) 4.9 % (20.5-51.5); MEAN CORPUSCULAR HGB CONC 33 g/dL (32.5-36.3); MEAN CORPUSCULAR VOLUME 96.7 fL (73.0-96.2); MONOCYTES # (AUTO) 0.7 K/uL (2.0-10.0); MONOCYTES % (AUTO) 9.4 % (0.0-11.0); NEUTROPHILS # (AUTO) 6.7 K/uL (1.8-8.9); NEUTROPHILS % (AUTO) 84.9 % (38.5-71.5); PLATELET COUNT (AUTO) 218 K/uL (152-348); RED BLOOD CELL COUNT(AUTO) 3.94 MIL/uL (4.06-5.63); WHITE BLOOD COUNT (AUTO) 7.9 K/uL (3.6-10.2)
[2020-03-22 05:46] LABS: PHOSPHOROUS 2.5 mg/dL (2.5-4.9)
[2020-03-22 05:58] LABS: CARBON DIOXIDE 36 mmol/L (21-32); CHLORIDE 109 mmol/L (98-107); CREATININE 0.5 mg/dL (0.6-1.3); FERRITIN 193 ng/mL (26-388); GLUCOSE 120 mg/dL (74-106); LACTATE DEHYDROGENASE 261 U/L (85-227); POTASSIUM 3.3 mmol/L (3.5-5.1); UREA NITROGEN, BLOOD 26 mg/dL (7-18)
[2020-03-22] MEDS: ACYCLOVIR IV 500 MG in IV DEXTROSE 5% 100 ML IV SCH ×2 (06:10→14:34)
[2020-03-22] MEDS: PANTOPRAZOLE ORAL SUSPENSION 40 MG SUSPDR.PKT GT SCH (06:10)
[2020-03-22] MEDS ORDERED: POTASSIUM CHLORIDE 20 MEQ POWDER PACKET GT ONE (08:00)
[2020-03-22] MEDS: DEXAMETHASONE SOD PHOSPHATE 10 MG INJ IV SCH (08:34)
[2020-03-22] MEDS: AMIODARONE HCL 200 MG TABLET NG SCH ×2 (08:34→20:46)
[2020-03-22] MEDS: DOCUSATE SODIUM 100 MG/10 ML LIQUID UDC GT SCH (08:34)
[2020-03-22] MEDS: ENOXAPARIN SODIUM 60 MG/0.6 ML DISP.SYRIN SQ SCH ×2 (08:34→20:47)
[2020-03-22] MEDS: PROTEIN SUPPLEMENT (PROSTAT) 30 ML LIQUID GT SCH ×2 (08:35→20:48)
[2020-03-22] MEDS: VITAL AF 1.2 1,000 ML LIQUID GT PRN (08:36)
--- NOTE | 2020-03-22 09:50 | NUR ---
CABLE SPLICER HELPER Jaron Solano in the unit to see and assess pt, with new orders. full report given
--- NOTE | 2020-03-22 10:02 | NUR ---
GROCERY PACKER Yvette Salvador in the unit to see and assess pt. full report given
--- NOTE | 2020-03-22 11:47 | NUR ---
Dr. Gottlieb in the unit to see and assess pt. full report given
[2020-03-22] MEDS: IV NORMAL SALINE 250 ML IV PRN (11:54)
[2020-03-22] MEDS: PROPOFOL 100 ML IV PRN (11:54)
[2020-03-22] MEDS ORDERED: IV NS 1000 ML 1,000 ML IV PRN (19:15)
--- NOTE | 2020-03-22 19:30 | NUR ---
Report received from am shift. Patient admitted for COVID/PNA. Orally intubated and to mechanical ventilator settings as follows: AC=20, HY=292dj, PEEP=8 and FIO2=55%. O2 saturations above 94%. On continuous Diprivan drip at 10 mcg/kg/min via FUENTES PICCline. Assessment done; see flow sheet for complete data. Addendum: 03/22/20 at 2243 by SUNITA RAMSEY RN Amended: Links added. Addendum: 03/22/20 at 2245 by SUNITA RAMSEY RN Amended: Links added.
--- NOTE | 2020-03-22 20:15 | NUR ---
RT at bedside. Oral care done. Turned and repositioned; skin care done. HOB elevated above 30 degrees at all times. With continuous GT feedings at 25 ml/H; no residuals. Addendum: 03/22/20 at 2245 by SUNITA RAMSEY RN Amended: Links added.
--- NOTE | 2020-03-22 23:30 | NUR ---
Patient tachypneic and grimacing. Diprivan drip titrated up.
[2020-03-23] VITALS (30 sets, daily range): BP systolic 86–139; BP diastolic 52–79
[2020-03-23] MEDS: IV NORMAL SALINE 250 ML IV PRN (03:49)
[2020-03-23] MEDS: PROPOFOL 100 ML IV PRN ×3 (03:52→17:46)
[2020-03-23 05:28] LABS: BASOPHILS % (AUTO) 0.2 % (0.0-2.0); EOSINOPHILS % (AUTO) 0.3 % (0.0-7.0); HEMATOCRIT 38.1 % (36.7-47.1); HEMOGLOBIN 12.6 g/dL (12.5-16.3); LYMPHOCYTES # (AUTO) 0.4 K/uL (20.0-40.0); LYMPHOCYTES % (AUTO) 4.3 % (20.5-51.5); MEAN CORPUSCULAR HEMOGLOBIN 31.9 uug (23.8-33.4); MEAN CORPUSCULAR HGB CONC 33 g/dL (32.5-36.3); MEAN CORPUSCULAR VOLUME 96.8 fL (73.0-96.2); MONOCYTES # (AUTO) 0.7 K/uL (2.0-10.0); MONOCYTES % (AUTO) 6.8 % (0.0-11.0); NEUTROPHILS # (AUTO) 8.5 K/uL (1.8-8.9); NEUTROPHILS % (AUTO) 88.4 % (38.5-71.5); PLATELET COUNT (AUTO) 188 K/uL (152-348); RED BLOOD CELL COUNT(AUTO) 3.93 MIL/uL (4.06-5.63); WHITE BLOOD COUNT (AUTO) 9.6 K/uL (3.6-10.2)
[2020-03-23 05:40] LABS: CARBON DIOXIDE 33 mmol/L (21-32); CHLORIDE 108 mmol/L (98-107); CREATININE 0.4 mg/dL (0.6-1.3); GLUCOSE 125 mg/dL (74-106); PHOSPHOROUS 2.3 mg/dL (2.5-4.9); POTASSIUM 3.6 mmol/L (3.5-5.1); UREA NITROGEN, BLOOD 26 mg/dL (7-18)
[2020-03-23] MEDS: PANTOPRAZOLE ORAL SUSPENSION 40 MG SUSPDR.PKT GT SCH (06:06)
[2020-03-23] MEDS ORDERED: POTASSIUM CHLORIDE 20 MEQ POWDER PACKET GT ONE (07:15)
[2020-03-23 09:02] LABS: ABG BASE EXCESS 4.7 mmol/L; ABG HCO3 29.9 mmol/L; ABG PCO2 46.4 mmHg (35.0-45.0); ABG PH 7.427 (7.350-7.450); ABG PO2 49.5 mmHg (75.0-100.0); ABG SITE RIGHT RADIAL; COHb 1.5 % (0.5-1.5); MetHb 0.3 % (0.0-1.5); O2Hb 85.6 % (94.0-97.0); VENT MODE VENT - A/C; VT, ABG 550 mL
[2020-03-23] MEDS: DOCUSATE SODIUM 100 MG/10 ML LIQUID UDC GT SCH (09:46)
[2020-03-23] MEDS: AMIODARONE HCL 200 MG TABLET NG SCH ×2 (09:47→20:55)
[2020-03-23] MEDS: ENOXAPARIN SODIUM 60 MG/0.6 ML DISP.SYRIN SQ SCH ×2 (09:48→20:55)
[2020-03-23] MEDS: DEXAMETHASONE SOD PHOSPHATE 10 MG INJ IV SCH (09:50)
[2020-03-23] MEDS: PROTEIN SUPPLEMENT (PROSTAT) 30 ML LIQUID GT SCH ×2 (09:51→20:56)
--- NOTE | 2020-03-23 11:07 | NUR ---
following up with OR nurses whether the percutaneous trach is available. currently in back order.
[2020-03-23] MEDS: ACETAMINOPHEN 650 MG SUPP.RECT RC PRN (13:21)
[2020-03-23] MEDS: NOREPINEPHRINE BITARTRATE 8 MG in IV NORMAL SALINE 242 ML IV PRN ×2 (13:53→19:33)
[2020-03-23] MEDS ORDERED: VECURONIUM BROMIDE 10 MG VIAL IV ONE ×2 (14:45→15:00)
--- NOTE | 2020-03-23 14:45 | NUR ---
vecoronium 10mg and propofol 20mg ordered per Dr. Paez. At bedside with Dr. Bell to place the trach. RT at bedside and patient be monitored.
[2020-03-23] MEDS ORDERED: PROPOFOL 200 MG/20 ML BOTTLE IV ONE (15:00)
[2020-03-23] MEDS ORDERED: NEUTRA PHOS PACKET NG ONE (15:15)
[2020-03-23] MEDS: ACETAMINOPHEN 325 MG TABLET PO PRN (18:44)
--- NOTE | 2020-03-23 19:30 | NUR ---
Report received. Patient on COVID-19 isolation, S/P tracheostomy Shiley #8 insertion today and to mechanical ventilator with settings AC=26, FIO2=60%, YA=692 ml and PEEP=8 cm. O2 sats above 94%. With facial grimacing to stimulation and care. Temp=99 orally. On continuous Diprivan drip for sedation and Levophed drip for BP support via FUENTES PICC line. electrician machine shop: SR with elevated T wave rate 70's-80's. Assessment completed. Addendum: 03/23/20 at 2232 by SUNITA RAMSEY RN Amended: Links added. Addendum: 03/23/20 at 2235 by SUNITA RAMSEY RN Amended: Links added. Addendum: 03/23/20 at 2236 by SUNITA RAMSEY RN Amended: Links added. Addendum: 03/23/20 at 2236 by SUNITA RAMSEY RN Amended: Links added. Addendum: 03/23/20 at 7 by SUNITA RAMSEY RN Amended: Links added. Addendum: 03/23/20 at 7 by SUNITA RAMSEY RN Amended: Links added. Addendum: 03/23/20 at 2237 by SUNITA RAMSEY RN Amended: Links added.
--- NOTE | 2020-03-23 20:30 | NUR ---
Turned and repositioned; skin care provided. Coughing, grimacing during suctioning; with small amounts of thick yusuf bloody tinged secretions from trache and mouth. HOB elevated above 30 degrees at all times. GT feedings at 25 ml/H; tolerated well. Addendum: 03/23/20 at 2236 by SUNITA RAMSEY RN Amended: Links added. Addendum: 03/23/20 at 2237 by SUNITA RAMSEY RN Amended: Links added. Addendum: 03/23/20 at 2236 by SUNITA RAMSEY RN Amended: Links added. Addendum: 03/23/20 at 2236 by SUNITA RAMSEY RN Amended: Links added. Addendum: 03/23/20 at 2236 by SUNITA RAMSEY RN Amended: Links added. Addendum: 03/23/20 at 2237 by SUNITA RAMSEY RN Amended: Links added.
--- NOTE | 2020-03-23 23:30 | NUR ---
BP stabilizing; Levophed drip titrated down. Will monitor BPs closely. Addendum: 03/23/20 at 2351 by SUNITA RAMSEY RN Amended: Links added.
[2020-03-24] VITALS (56 sets, daily range): BP systolic 90–126; BP diastolic 57–70
[2020-03-24] MEDS: PROPOFOL 100 ML IV PRN ×3 (00:40→16:05)
[2020-03-24] MEDS: IV NORMAL SALINE 250 ML IV PRN (01:59)
[2020-03-24] MEDS: NOREPINEPHRINE BITARTRATE 8 MG in IV NORMAL SALINE 242 ML IV PRN ×2 (02:55→19:30)
[2020-03-24 05:05] LABS: BASOPHILS % (AUTO) 0.2 % (0.0-2.0); EOSINOPHILS # (AUTO) 0.1 K/uL (0.0-0.7); EOSINOPHILS % (AUTO) 0.4 % (0.0-7.0); HEMATOCRIT 36.3 % (36.7-47.1); LYMPHOCYTES # (AUTO) 0.9 K/uL (20.0-40.0); LYMPHOCYTES % (AUTO) 5.3 % (20.5-51.5); MEAN CORPUSCULAR HEMOGLOBIN 32.1 uug (23.8-33.4); MEAN CORPUSCULAR HGB CONC 33 g/dL (32.5-36.3); MEAN CORPUSCULAR VOLUME 97.1 fL (73.0-96.2); MONOCYTES # (AUTO) 0.9 K/uL (2.0-10.0); MONOCYTES % (AUTO) 5.6 % (0.0-11.0); NEUTROPHILS # (AUTO) 14.8 K/uL (1.8-8.9); NEUTROPHILS % (AUTO) 88.5 % (38.5-71.5); PLATELET COUNT (AUTO) 209 K/uL (152-348); RED BLOOD CELL COUNT(AUTO) 3.74 MIL/uL (4.06-5.63); WHITE BLOOD COUNT (AUTO) 16.7 K/uL (3.6-10.2)
[2020-03-24 05:24] LABS: CARBON DIOXIDE 33 mmol/L (21-32); CHLORIDE 111 mmol/L (98-107); CREATININE 0.5 mg/dL (0.6-1.3); GLUCOSE 151 mg/dL (74-106); MAGNESIUM 1.8 mg/dL (1.8-2.4); PHOSPHOROUS 3.6 mg/dL (2.5-4.9); POTASSIUM 3.6 mmol/L (3.5-5.1); UREA NITROGEN, BLOOD 27 mg/dL (7-18)
[2020-03-24] MEDS: PANTOPRAZOLE ORAL SUSPENSION 40 MG SUSPDR.PKT GT SCH ×2 (06:07→08:30)
--- NOTE | 2020-03-24 06:37 | NUR ---
End of shift notes: Still with facial grimacing to pain and care. Remains on Diprivan and Levophed drips at 35 mcg/kg/min and 0.1 mcg/kg/min respectively via FUENTES PICC line. Tolerating GT feedings well at 25 ml/H. S/P Trache insertion yesterday afternoon. Site no bleeding noted, but with bloody secretions both from mouth and trache. COVID isolation maintained. Addendum: 03/24/20 at 0638 by SUNITA RAMSEY RN Amended: Links added.
[2020-03-24] MEDS: DOCUSATE SODIUM 100 MG/10 ML LIQUID UDC GT SCH (08:30)
[2020-03-24] MEDS: PROTEIN SUPPLEMENT (PROSTAT) 30 ML LIQUID GT SCH ×2 (08:31→21:00)
[2020-03-24] MEDS: DEXAMETHASONE SOD PHOSPHATE 10 MG INJ IV SCH (08:31)
[2020-03-24] MEDS: APIXABAN 5 MG TABLET NG SCH ×2 (08:58→22:02)
[2020-03-24] MEDS ORDERED: AMIODARONE HCL 200 MG TABLET NG SCH (09:00)
[2020-03-24] MEDS ORDERED: levoFLOXacin 750MG/D5W 750 MG in PREMIXED 1 EACH IV SCH (09:00)
[2020-03-24] MEDS ORDERED: APIXABAN 2.5 MG TABLET PO SCH (09:00)
[2020-03-24 09:13] LABS: ABG BASE EXCESS 5.6 mmol/L; ABG HCO3 30.9 mmol/L; ABG PH 7.427 (7.350-7.450); ABG PO2 70.5 mmHg (75.0-100.0); ABG SITE RIGHT RADIAL; ABG TOTAL HEMOGLOBIN 12.5 G/dL (13.5-18.0); COHb 1.2 % (0.5-1.5); MetHb 0.3 % (0.0-1.5); O2Hb 93.9 % (94.0-97.0); VENT MODE VENT - A/C; VT, ABG 550 mL
[2020-03-24 09:22] LABS: *BILIRUBIN,URIN 1+ (NEGATIVE); *CLARITY,URINE SLIGHTLY CLOUDY (CLEAR); *COLOR,URINE DARK YELLOW (YELLOW); *KETONES,URINE NEGATIVE (NEGATIVE); *UROBILINOGEN,URINE >=8.0 E.U./dl (NORMAL); LEUKOCYTE ESTERASE ,URINE NEGATIVE (NEGATIVE); NITRITE, URINE NEGATIVE (NEGATIVE); PH,URINE 6.5 (5.0-8.0); UGLUCOSE NEGATIVE (NEGATIVE)
[2020-03-24 09:24] LABS: *BLOOD, URINE TRACE (NEGATIVE)
--- NOTE | 2020-03-24 09:29 | NUR ---
Collected patient cultures. wbc is high and patient was having fevers yesterday and low grade overnight.
[2020-03-24] MEDS ORDERED: IV LACTATED RINGERS SOLUTION 1,000 ML BAG IV ONE (09:30)
[2020-03-24] MEDS ORDERED: IV LACTATED RINGERS SOLUTION 1,000 ML IV ONE (09:30)
[2020-03-24] MEDS: VANCOMYCIN IV 1,000 MG in IV DEXTROSE 5% 250 ML IV SCH ×2 (10:27→22:02)
[2020-03-24] MEDS ORDERED: GENTAMICIN SULFATE INJ 500 MG in IV DEXTROSE 5% 250 ML IV SCH (13:00)
[2020-03-24 13:56] LABS: URINE AMORPHOUS URATE NONE SEEN /HPF
[2020-03-24] MEDS: CEFEPIME HCL 2 G in IV DEXTROSE 5% 100 ML IV SCH ×2 (13:59→21:58)
[2020-03-24] MEDS ORDERED: AMIODARONE HCL IV 150 MG in IV DEXTROSE 5% 100 ML IV ONE (14:00)
[2020-03-24] MEDS: MORPHINE SULFATE 2 MG/1 ML DISP.SYRIN IV PRN (15:03)
[2020-03-24 16:03] LABS: BACTERIA,URINE FEW /HPF (NONE SEEN); RBC,URINE 0-3 /HPF (0-3); WBC,URINE 0-3 /HPF (0-3)
[2020-03-24 16:04] LABS: SQUAMOUS EPITHELIAL CELL,UR FEW /HPF (NONE SEEN); YEAST,URINE MANY /HPF (NONE SEEN)
[2020-03-24] MEDS: AMIODARONE HCL 200 MG TABLET NG SCH (18:00)
[2020-03-24] MEDS: LORAZEPAM 2 MG/1 ML VIAL IV PRN (18:12)
[2020-03-24] MEDS: ACETAMINOPHEN 650 MG SUPP.RECT RC PRN (18:30)
[2020-03-25] VITALS (25 sets, daily range): BP systolic 87–140; BP diastolic 54–82
[2020-03-25] MEDS: CEFEPIME HCL 2 G in IV DEXTROSE 5% 100 ML IV SCH ×3 (06:00→21:14)
[2020-03-25 06:36] LABS: ABG BASE EXCESS 5.1 mmol/L; ABG HCO3 31.7 mmol/L; ABG PCO2 53.6 mmHg (35.0-45.0); ABG PO2 87.1 mmHg (75.0-100.0); ABG SITE RIGHT RADIAL; ABG TOTAL HEMOGLOBIN 16.6 G/dL (13.5-18.0); COHb 2.1 % (0.5-1.5); MetHb 0.4 % (0.0-1.5); VENT MODE VENT - A/C; VT, ABG 550 mL
[2020-03-25 06:41] LABS: BASOPHILS % (AUTO) 0.1 % (0.0-2.0); EOSINOPHILS # (AUTO) 0.1 K/uL (0.0-0.7); EOSINOPHILS % (AUTO) 0.8 % (0.0-7.0); HEMATOCRIT 34.5 % (36.7-47.1); HEMOGLOBIN 11.5 g/dL (12.5-16.3); LYMPHOCYTES # (AUTO) 0.5 K/uL (20.0-40.0); LYMPHOCYTES % (AUTO) 4.1 % (20.5-51.5); MEAN CORPUSCULAR HEMOGLOBIN 32.4 uug (23.8-33.4); MEAN CORPUSCULAR HGB CONC 33 g/dL (32.5-36.3); MONOCYTES # (AUTO) 0.6 K/uL (2.0-10.0); MONOCYTES % (AUTO) 4.8 % (0.0-11.0); NEUTROPHILS # (AUTO) 11.1 K/uL (1.8-8.9); NEUTROPHILS % (AUTO) 90.2 % (38.5-71.5); PLATELET COUNT (AUTO) 152 K/uL (152-348); RED BLOOD CELL COUNT(AUTO) 3.55 MIL/uL (4.06-5.63); WHITE BLOOD COUNT (AUTO) 12.3 K/uL (3.6-10.2)
[2020-03-25] MEDS: PROPOFOL 100 ML IV PRN (06:54)
[2020-03-25 07:07] LABS: ALANINE AMINOTRANSFERASE 40 U/L (16-63); ASPARTATE AMINOTRANSFERASE 30 U/L (15-37); BILIRUBIN,DIRECT 0.8 mg/dL (0.0-0.2); BILIRUBIN,TOTAL 0.9 mg/dL (0.2-1.0); CARBON DIOXIDE 33 mmol/L (21-32); CHLORIDE 108 mmol/L (98-107); CREATININE 0.4 mg/dL (0.6-1.3); GLUCOSE 106 mg/dL (74-106); MAGNESIUM 1.6 mg/dL (1.8-2.4); PHOSPHOROUS 1.9 mg/dL (2.5-4.9); POTASSIUM 3.6 mmol/L (3.5-5.1); TOTAL PROTEIN, SERUM 5.7 g/dL (6.4-8.2); UREA NITROGEN, BLOOD 14 mg/dL (7-18)
[2020-03-25 07:17] LABS: ALKALINE PHOSPHATASE 132 U/L (50-136)
--- NOTE | 2020-03-25 08:00 | NUR ---
Lethargic, withdraws to pain. Trach to Vent with settings of TV 550, AC 26, FIO2 60%, PEEP 5. Propopol at 10mcg/kg/min. Levophed drip titrated/stopped. G Tube Vital AF restarted at 25 ml/hr
[2020-03-25] MEDS ORDERED: MAGNESIUM SULFATE 1 GM in IV DEXTROSE 5% 100 ML IV ONE (08:45)
[2020-03-25] MEDS: DOCUSATE SODIUM 100 MG/10 ML LIQUID UDC GT SCH (08:49)
[2020-03-25] MEDS: PROTEIN SUPPLEMENT (PROSTAT) 30 ML LIQUID GT SCH ×2 (08:51→21:00)
[2020-03-25] MEDS: DEXAMETHASONE SOD PHOSPHATE 10 MG INJ IV SCH (08:51)
[2020-03-25] MEDS: AMIODARONE HCL 200 MG TABLET NG SCH ×2 (08:52→17:24)
[2020-03-25] MEDS: VITAL AF 1.2 1,000 ML LIQUID GT PRN (08:54)
[2020-03-25] MEDS: APIXABAN 5 MG TABLET NG SCH ×2 (08:54→21:21)
[2020-03-25] MEDS ORDERED: MAGNESIUM SULFATE/D5W 100 ML IV SCH (09:00)
[2020-03-25] MEDS: NEUTRA PHOS PACKET GT SCH ×2 (09:38→13:48)
[2020-03-25] MEDS: VANCOMYCIN IV 1,000 MG in IV DEXTROSE 5% 250 ML IV SCH ×2 (09:39→22:28)
--- NOTE | 2020-03-25 10:00 | NUR ---
Tachypneic, O2 sat to 92%. FIO2 increased to 70%
--- NOTE | 2020-03-25 12:00 | NUR ---
Secretions suctioned at interval. Trach care and oral care done. Repositioned comfortably
--- NOTE | 2020-03-25 14:00 | NUR ---
O2 sat 97% to vent settings AC 26, TV 550, FIO2 70%, PEEP 5
--- NOTE | 2020-03-25 18:58 | NUR ---
With BM, Incontinence care done. Repositioned comfortably. Propofol at 10mcg.kg/min. Trach ton vent to setting of AC 26, TV 550, FIO2 70%, PEEP 5. Afebrile
[2020-03-26] VITALS (25 sets, daily range): BP systolic 84–122; BP diastolic 55–75
[2020-03-26] MEDS: CEFEPIME HCL 2 G in IV DEXTROSE 5% 100 ML IV SCH ×3 (05:39→22:09)
[2020-03-26] MEDS: PANTOPRAZOLE ORAL SUSPENSION 40 MG SUSPDR.PKT GT SCH (05:39)
[2020-03-26 05:53] LABS: BASOPHILS % (AUTO) 0.2 % (0.0-2.0); EOSINOPHILS # (AUTO) 0.1 K/uL (0.0-0.7); EOSINOPHILS % (AUTO) 1.1 % (0.0-7.0); LYMPHOCYTES # (AUTO) 0.7 K/uL (20.0-40.0); LYMPHOCYTES % (AUTO) 6.4 % (20.5-51.5); MEAN CORPUSCULAR HEMOGLOBIN 32.4 uug (23.8-33.4); MEAN CORPUSCULAR HGB CONC 33 g/dL (32.5-36.3); MEAN CORPUSCULAR VOLUME 97.2 fL (73.0-96.2); MONOCYTES # (AUTO) 0.4 K/uL (2.0-10.0); MONOCYTES % (AUTO) 4.2 % (0.0-11.0); NEUTROPHILS # (AUTO) 9.3 K/uL (1.8-8.9); NEUTROPHILS % (AUTO) 88.1 % (38.5-71.5); PLATELET COUNT (AUTO) 146 K/uL (152-348); RED BLOOD CELL COUNT(AUTO) 3.71 MIL/uL (4.06-5.63); WHITE BLOOD COUNT (AUTO) 10.6 K/uL (3.6-10.2)
[2020-03-26 06:07] LABS: ALANINE AMINOTRANSFERASE 43 U/L (16-63); ALKALINE PHOSPHATASE 128 U/L (50-136); ASPARTATE AMINOTRANSFERASE 35 U/L (15-37); BILIRUBIN,DIRECT 0.8 mg/dL (0.0-0.2); BILIRUBIN,TOTAL 0.9 mg/dL (0.2-1.0); CARBON DIOXIDE 34 mmol/L (21-32); CHLORIDE 105 mmol/L (98-107); CREATININE 0.4 mg/dL (0.6-1.3); GLUCOSE 102 mg/dL (74-106); MAGNESIUM 1.7 mg/dL (1.8-2.4); PHOSPHOROUS 2.6 mg/dL (2.5-4.9); POTASSIUM 3.1 mmol/L (3.5-5.1); UREA NITROGEN, BLOOD 17 mg/dL (7-18)
[2020-03-26] MEDS ORDERED: CEFAZOLIN 1 G VIAL MC ONE (06:28)
[2020-03-26] MEDS ORDERED: PROPOFOL 200 MG/20 ML BOTTLE IV ONE (06:28)
--- NOTE | 2020-03-26 07:15 | NUR ---
Received report from night stocker nurse, patient in bed on mild sedation propofol 20mcg/kg/min, Patient is hemodynamically stable, sinus rhythm on the monitor, air mattress inflated, bed in low position, side rails up x2. Cleaned up incontinence of stool. Checked alarms. Will continue to monitor.
[2020-03-26] MEDS: VANCOMYCIN IV 1,500 MG in IV DEXTROSE 5% 500 ML IV SCH ×2 (08:00→19:47)
[2020-03-26] MEDS: PROTEIN SUPPLEMENT (PROSTAT) 30 ML LIQUID GT SCH ×2 (08:01→20:59)
[2020-03-26] MEDS: APIXABAN 5 MG TABLET NG SCH ×2 (08:01→21:01)
[2020-03-26] MEDS: DEXAMETHASONE SOD PHOSPHATE 10 MG INJ IV SCH (08:01)
[2020-03-26] MEDS: DOCUSATE SODIUM 100 MG/10 ML LIQUID UDC GT SCH (08:01)
[2020-03-26] MEDS: AMIODARONE HCL 200 MG TABLET NG SCH ×2 (08:01→16:34)
[2020-03-26] MEDS ORDERED: FLUCONAZOLE 200 MG TABLET GT SCH (09:00)
[2020-03-26] MEDS ORDERED: POTASSIUM CHLORIDE 20 MEQ POWDER PACKET GT ONE (09:30)
[2020-03-26] MEDS: MAGNESIUM SULFATE/D5W 100 ML IV SCH ×2 (10:49→11:22)
[2020-03-26] MEDS: MICAFUNGIN SODIUM 100 MG in IV NORMAL SALINE 100 ML IV SCH (11:22)
[2020-03-26] MEDS: IV NORMAL SALINE 250 ML IV PRN (11:23)
--- NOTE | 2020-03-26 19:30 | NUR ---
Report received; care assumed. Patient on COVID-19 isolation with trache Shiley#8 to ventilator with settings: AC=26, FIO2=70%, PEEP=8 and XU=882 ml. O2 saturations above 94%. Eyes open, doesn't follow commands but grimaces to stimulation and pain such as suctioning. Extremities flaccid. Cleaned for small liquid brown BM. Skin care provided; turned and repositioned. Assessment completed. Addendum: 03/27/20 at 0019 by SUNITA RAMSEY RN Amended: Links added. Addendum: 03/27/20 at 0019 by SUNITA RAMSEY RN Amended: Links added. Addendum: 03/27/20 at 0019 by SUNITA RAMSEY RN Amended: Links added. Addendum: 03/27/20 at 0019 by SUNITA RAMSEY RN Amended: Links added. Addendum: 03/27/20 at 0020 by SUNITA RAMSEY RN Amended: Links added. Addendum: 03/27/20 at 0020 by SUNITA RAMSEY RN Amended: Links added.
[2020-03-26] MEDS: ACETAMINOPHEN 325 MG TABLET PO PRN (21:04)
[2020-03-26] MEDS: MORPHINE SULFATE 2 MG/1 ML DISP.SYRIN IV PRN (22:39)
--- NOTE | 2020-03-26 22:39 | NUR ---
Continues to fischer the vent; easily grimaces to stimulation, suctioning. Medicated with Morphine IV. BPs stable. Addendum: 03/26/20 at 2250 by SUNITA RAMSEY RN Amended: Links added.
--- NOTE | 2020-03-26 23:00 | NUR ---
Morphine effective; BP in the 80 systole after Morphine.
[2020-03-27] VITALS (30 sets, daily range): BP systolic 81–146; BP diastolic 56–89
[2020-03-27] MEDS: IV NORMAL SALINE 250 ML IV PRN (03:20)
--- NOTE | 2020-03-27 03:25 | NUR ---
Patient awake, mildly restless, grimacing and vent alarming high pressures. Suctioned for small amounts of white to yusuf trache secretions. Patient with increased restless during suctioning turning head side to side with oral suctioning. Medicated with Morphine IV for generalized discomfort. Addendum: 03/27/20 at 0348 by SUNITA RAMSEY RN Amended: Links added.
[2020-03-27] MEDS: MORPHINE SULFATE 2 MG/1 ML DISP.SYRIN IV PRN ×2 (03:29→21:16)
--- NOTE | 2020-03-27 03:56 | NUR ---
Morphine effective; but patient bradycardic after dose, monitor SR-SB rate 50's-60's.
[2020-03-27 05:11] LABS: BASOPHILS % (AUTO) 0.1 % (0.0-2.0); EOSINOPHILS # (AUTO) 0.2 K/uL (0.0-0.7); HEMATOCRIT 34.8 % (36.7-47.1); HEMOGLOBIN 11.7 g/dL (12.5-16.3); LYMPHOCYTES # (AUTO) 0.6 K/uL (20.0-40.0); LYMPHOCYTES % (AUTO) 6.3 % (20.5-51.5); MEAN CORPUSCULAR HEMOGLOBIN 32.4 uug (23.8-33.4); MEAN CORPUSCULAR HGB CONC 34 g/dL (32.5-36.3); MEAN CORPUSCULAR VOLUME 96.5 fL (73.0-96.2); MONOCYTES # (AUTO) 0.4 K/uL (2.0-10.0); MONOCYTES % (AUTO) 4.4 % (0.0-11.0); NEUTROPHILS # (AUTO) 8.7 K/uL (1.8-8.9); NEUTROPHILS % (AUTO) 87.2 % (38.5-71.5); PLATELET COUNT (AUTO) 119 K/uL (152-348)
[2020-03-27 05:21] LABS: CARBON DIOXIDE 35 mmol/L (21-32); CHLORIDE 103 mmol/L (98-107); CREATININE 0.5 mg/dL (0.6-1.3); GLUCOSE 100 mg/dL (74-106); MAGNESIUM 1.8 mg/dL (1.8-2.4); PHOSPHOROUS 2.6 mg/dL (2.5-4.9); POTASSIUM 3.4 mmol/L (3.5-5.1); TRIGLYCERIDES 132 MG/DL (30-150); UREA NITROGEN, BLOOD 18 mg/dL (7-18)
[2020-03-27] MEDS: CEFEPIME HCL 2 G in IV DEXTROSE 5% 100 ML IV SCH ×3 (05:58→21:32)
[2020-03-27] MEDS: PANTOPRAZOLE ORAL SUSPENSION 40 MG SUSPDR.PKT GT SCH (06:01)
[2020-03-27] MEDS: LORAZEPAM 2 MG/1 ML VIAL IV PRN (07:04)
[2020-03-27] MEDS: VANCOMYCIN IV 1,500 MG in IV DEXTROSE 5% 500 ML IV SCH ×2 (08:22→20:31)
[2020-03-27] MEDS: DOCUSATE SODIUM 100 MG/10 ML LIQUID UDC GT SCH (08:23)
[2020-03-27 08:28] LABS: ABG BASE EXCESS 4.5 mmol/L; ABG HCO3 29.9 mmol/L; ABG PH 7.413 (7.350-7.450); ABG PO2 57.3 mmHg (75.0-100.0); ABG SITE LEFT RADIAL; ABG TOTAL HEMOGLOBIN 12.9 G/dL (13.5-18.0); COHb 1.7 % (0.5-1.5); MetHb 0.3 % (0.0-1.5); O2Hb 87.9 % (94.0-97.0); VENT MODE VENT - A/C; VT, ABG 550 mL
[2020-03-27] MEDS: PROTEIN SUPPLEMENT (PROSTAT) 30 ML LIQUID GT SCH ×2 (08:29→20:00)
--- NOTE | 2020-03-27 08:30 | NUR ---
Cardiology services, Dr. Lorenzo in the unit to see and examine pt. report given, and orders to continue with care plan.
[2020-03-27] MEDS: DEXAMETHASONE SOD PHOSPHATE 10 MG INJ IV SCH (08:31)
[2020-03-27] MEDS: AMIODARONE HCL 200 MG TABLET NG SCH ×2 (08:31→16:21)
[2020-03-27] MEDS: APIXABAN 5 MG TABLET NG SCH ×2 (08:32→20:04)
[2020-03-27] MEDS ORDERED: POTASSIUM CHLORIDE 20 MEQ POWDER PACKET GT SCH (10:00)
[2020-03-27] MEDS: VITAL AF 1.2 1,000 ML LIQUID GT PRN (10:56)
[2020-03-27] MEDS: MICAFUNGIN SODIUM 100 MG in IV NORMAL SALINE 100 ML IV SCH (10:57)
[2020-03-27] MEDS: HYDROCODONE/APAP 5-325MG TABLET GT PRN ×2 (11:06→20:02)
--- NOTE | 2020-03-27 11:32 | NUR ---
Pulmonary services, Dr. Gottlieb in the unit to see and examine patient. See orders hx.
--- NOTE | 2020-03-27 11:33 | NUR ---
Attending Felipe Solano int he unit to see and examine pt.
--- NOTE | 2020-03-27 19:30 | NUR ---
Report received. Patient on COVID -19 isolation with trache to mechanical ventilator settings: AC=26, FIO2=60%, PEEP=8 and PU=781qo. O2 saturations 94-95%. Mildly restless, tachypneic with eyes open but doesn't track or follow any commands. Extremities flaccid. Suctioned for very scant beige trache secretions. Moves head side to side with oral suctioning. Turned and repositioned; skin care provided. Addendum: 03/27/20 at 2110 by SUNITA RAMSEY RN Amended: Links added.
--- NOTE | 2020-03-27 20:00 | NUR ---
Remains tachypneic and restless. [place] given via GT. Feedings in progress at 25ml/H. Tolerated well; no residual. Addendum: 03/27/20 at 2220 by SUNITA RAMSEY RN Amended: Links added. Addendum: 03/27/20 at 2223 by SUNITA RAMSEY RN Amended: Links added. Addendum: 03/27/20 at 2228 by SUNITA RAMSEY RN Amended: Links added.
--- NOTE | 2020-03-27 20:30 | NUR ---
Vancomycin IVPB given; trough level at 1950=18.5. Addendum: 03/27/20 at 2228 by SUNITA RAMSEY RN Amended: Links added.
--- NOTE | 2020-03-27 21:15 | NUR ---
[place] ineffective. Patient still awake and restless. O2 sat satisfactory. satellite project site monitor SR, BPs stable. Morphine IV given for generalized discomfort. Addendum: 03/27/20 at 2224 by SUNITA RAMSEY RN Amended: Links added. Addendum: 03/27/20 at 2228 by SUNITA RAMSEY RN Amended: Links added.
--- NOTE | 2020-03-27 22:00 | NUR ---
Morphine IV effective.
[2020-03-28] VITALS (28 sets, daily range): BP systolic 101–158; BP diastolic 58–93
--- NOTE | 2020-03-28 | NUR ---
Patient mildly agitated on and off. BP 158/93. Bath given; turned and repositioned for comfort. Appears to respond fairly well when spoken to in [place]. Addendum: 03/28/20 at 0037 by SUNITA RAMSEY RN Amended: Links added.
[2020-03-28] MEDS: MORPHINE SULFATE 2 MG/1 ML DISP.SYRIN IV PRN ×4 (01:01→21:14)
--- NOTE | 2020-03-28 04:00 | NUR ---
Restless on and off; BPs 150 systole when agitated. Repositioned for comfort. Addendum: 03/28/20 at 0458 by SUNITA RAMSEY RN Amended: Links added.
[2020-03-28] MEDS: IV NORMAL SALINE 250 ML IV PRN (04:06)
[2020-03-28] MEDS: CEFEPIME HCL 2 G in IV DEXTROSE 5% 100 ML IV SCH ×3 (05:29→21:25)
[2020-03-28] MEDS: PANTOPRAZOLE ORAL SUSPENSION 40 MG SUSPDR.PKT GT SCH (06:08)
[2020-03-28 06:46] LABS: EOSINOPHILS # (AUTO) 0.2 K/uL (0.0-0.7); EOSINOPHILS % (AUTO) 1.2 % (0.0-7.0); HEMATOCRIT 36.6 % (36.7-47.1); HEMOGLOBIN 12.2 g/dL (12.5-16.3); LYMPHOCYTES # (AUTO) 0.6 K/uL (20.0-40.0); LYMPHOCYTES % (AUTO) 3.7 % (20.5-51.5); MEAN CORPUSCULAR HGB CONC 33 g/dL (32.5-36.3); MEAN CORPUSCULAR VOLUME 96.1 fL (73.0-96.2); MONOCYTES # (AUTO) 0.6 K/uL (2.0-10.0); MONOCYTES % (AUTO) 4.1 % (0.0-11.0); NEUTROPHILS # (AUTO) 14.1 K/uL (1.8-8.9); PLATELET COUNT (AUTO) 143 K/uL (152-348); RED BLOOD CELL COUNT(AUTO) 3.81 MIL/uL (4.06-5.63); WHITE BLOOD COUNT (AUTO) 15.5 K/uL (3.6-10.2)
--- NOTE | 2020-03-28 06:53 | NUR ---
Hardly slept during the night. Restless on and off. Medicated with Morphine IV PRN. groundwater monitoring technician SR rate 70's-80's. Tolerating GT feedings well; off [id number]. Addendum: 03/28/20 at 0653 by SUNITA RAMSEY RN Amended: Links added.
[2020-03-28 07:13] LABS: CARBON DIOXIDE 34 mmol/L (21-32); CHLORIDE 100 mmol/L (98-107); CREATININE 0.4 mg/dL (0.6-1.3); GLUCOSE 110 mg/dL (74-106); MAGNESIUM 1.7 mg/dL (1.8-2.4); PHOSPHOROUS 2.3 mg/dL (2.5-4.9); POTASSIUM 3.7 mmol/L (3.5-5.1); UREA NITROGEN, BLOOD 17 mg/dL (7-18)
[2020-03-28] MEDS: VANCOMYCIN IV 1,500 MG in IV DEXTROSE 5% 500 ML IV SCH (08:03)
[2020-03-28] MEDS: DEXAMETHASONE SOD PHOSPHATE 10 MG INJ IV SCH (08:09)
[2020-03-28] MEDS: AMIODARONE HCL 200 MG TABLET NG SCH ×2 (08:09→16:45)
[2020-03-28] MEDS: DOCUSATE SODIUM 100 MG/10 ML LIQUID UDC GT SCH (08:09)
[2020-03-28] MEDS: PROTEIN SUPPLEMENT (PROSTAT) 30 ML LIQUID GT SCH ×2 (08:10→20:50)
[2020-03-28] MEDS: APIXABAN 5 MG TABLET NG SCH ×2 (08:12→20:50)
[2020-03-28] MEDS ORDERED: NEUTRA PHOS PACKET GT ONE (09:30)
[2020-03-28] MEDS ORDERED: MAGNESIUM SULFATE/D5W 100 ML IV SCH (09:30)
[2020-03-28] MEDS: VITAL AF 1.2 1,000 ML LIQUID GT PRN (09:40)
[2020-03-28] MEDS: HYDROCODONE/APAP 5-325MG TABLET GT PRN (09:58)
--- NOTE | 2020-03-28 10:35 | NUR ---
Patient with a period of desaturation down to the 87-90 intermittently. Pt. noted to be fidgeting a lot, grimacing, oral care and suctioning provided with no improvement. RT notified and FIO2 increased to 65%.
--- NOTE | 2020-03-28 11:33 | NUR ---
A call to solid waste collection worker Dr. Stephenson to report sbp above 150's despite (norco,and morphine atc) also informed that pt. is restless and slightly agitated and as per report unable to sleep last night. Orders to continue monitoring and will assess pt soon.
--- NOTE | 2020-03-28 12:30 | NUR ---
Cardiology services Dr. Stephenson in the unit to see and examine pt. report given. orders to continue with care plan received.
--- NOTE | 2020-03-28 15:17 | NUR ---
Attending physician DR. Kyle Beckwith in the unit to see and examine pt. report given. Orders to continue with care plan received, and implemented. Addendum: 03/28/20 at 1523 by GAY CHAMORRO RN medication orders also received.
[2020-03-28] MEDS: QUETIAPINE FUMARATE 25 MG TABLET GT PRN ×2 (16:53→23:43)
--- NOTE | 2020-03-28 20:00 | NUR ---
RECEIVED PT TRACH INTACT TO VENT W/ SETTINGS OF AC-26, TV-550, FIO2-65%, PEEP-+8 W/ O2 SAT OF 95%. G-TUBE INTACT W/ TUBE FDG OF VITAL AF 1.2 @ 25CC/HR, CHECKED RESIDUAL 5CC NOTED. IVF NS 10CC/HR ON FUENTES PICC LINE. SUCTIONED VIA TRACH W/ MOD. TANNISH THICK MUCOUS. AFEBRILE. REPOSITIONED W/ HOB ELEVATED.
[2020-03-29] VITALS (23 sets, daily range): BP systolic 78–159; BP diastolic 48–80
[2020-03-29] MEDS: VANCOMYCIN IV 1,500 MG in IV DEXTROSE 5% 500 ML IV SCH ×2 (01:22→20:26)
--- NOTE | 2020-03-29 04:00 | NUR ---
AM CARE DONE. ORAL CARE DONE. G-TUBE SITE CLEANED & DRSG APPLIED. REPOSITIONED W/ HOB ELEVATED.
[2020-03-29] MEDS: MORPHINE SULFATE 2 MG/1 ML DISP.SYRIN IV PRN (04:14)
[2020-03-29] MEDS: IV NORMAL SALINE 250 ML IV PRN (04:21)
[2020-03-29] MEDS: CEFEPIME HCL 2 G in IV DEXTROSE 5% 100 ML IV SCH ×3 (05:25→22:09)
[2020-03-29 05:40] LABS: CARBON DIOXIDE 37 mmol/L (21-32); CHLORIDE 101 mmol/L (98-107); CREATININE 0.5 mg/dL (0.6-1.3); GLUCOSE 127 mg/dL (74-106); POTASSIUM 3.5 mmol/L (3.5-5.1); UREA NITROGEN, BLOOD 16 mg/dL (7-18)
--- NOTE | 2020-03-29 06:00 | NUR ---
OFF TUBE FDG WILL RESUMED @ 0800.
[2020-03-29] MEDS: PANTOPRAZOLE ORAL SUSPENSION 40 MG SUSPDR.PKT GT SCH (06:17)
[2020-03-29] MEDS: QUETIAPINE FUMARATE 25 MG TABLET GT PRN ×3 (06:24→21:35)
[2020-03-29] MEDS: PROTEIN SUPPLEMENT (PROSTAT) 30 ML LIQUID GT SCH ×2 (08:05→20:29)
[2020-03-29] MEDS: DEXAMETHASONE SOD PHOSPHATE 10 MG INJ IV SCH (08:05)
[2020-03-29] MEDS: AMIODARONE HCL 200 MG TABLET NG SCH ×2 (08:05→17:48)
[2020-03-29] MEDS: APIXABAN 5 MG TABLET NG SCH ×2 (08:07→20:29)
[2020-03-29 08:55] LABS: ABG BASE EXCESS 5.1 mmol/L; ABG PCO2 45.4 mmHg (35.0-45.0); ABG PH 7.438 (7.350-7.450); ABG PO2 51.5 mmHg (75.0-100.0); ABG SITE LEFT RADIAL; ABG TOTAL HEMOGLOBIN 12.7 G/dL (13.5-18.0); COHb 1.6 % (0.5-1.5); MetHb 0.4 % (0.0-1.5); O2Hb 85.9 % (94.0-97.0); VENT MODE VENT - A/C26; VT, ABG 550 mL
[2020-03-29] MEDS: DOCUSATE SODIUM 100 MG/10 ML LIQUID UDC GT SCH (09:00)
[2020-03-29] MEDS ORDERED: POTASSIUM CHLORIDE 20 MEQ POWDER PACKET GT ONE (09:15)
[2020-03-29] MEDS: ACETAMINOPHEN 325 MG TABLET PO PRN (12:46)
[2020-03-29 16:16] LABS: BILIRUBIN,DIRECT 0.5 mg/dL (0.0-0.2); BILIRUBIN,TOTAL 0.9 mg/dL (0.2-1.0)
[2020-03-29] MEDS: HYDROCODONE/APAP 5-325MG TABLET GT PRN (23:24)
[2020-03-30] VITALS (23 sets, daily range): BP systolic 80–145; BP diastolic 51–84
[2020-03-30] MEDS: IV NORMAL SALINE 250 ML IV PRN (03:47)
[2020-03-30 05:09] LABS: BASOPHILS % (AUTO) 0.2 % (0.0-2.0); EOSINOPHILS # (AUTO) 0.1 K/uL (0.0-0.7); HEMATOCRIT 35.9 % (36.7-47.1); HEMOGLOBIN 11.9 g/dL (12.5-16.3); LYMPHOCYTES # (AUTO) 0.6 K/uL (20.0-40.0); LYMPHOCYTES % (AUTO) 4.6 % (20.5-51.5); MEAN CORPUSCULAR HEMOGLOBIN 32.1 uug (23.8-33.4); MEAN CORPUSCULAR HGB CONC 33 g/dL (32.5-36.3); MEAN CORPUSCULAR VOLUME 96.7 fL (73.0-96.2); MONOCYTES # (AUTO) 0.6 K/uL (2.0-10.0); MONOCYTES % (AUTO) 4.5 % (0.0-11.0); NEUTROPHILS # (AUTO) 11.8 K/uL (1.8-8.9); NEUTROPHILS % (AUTO) 89.7 % (38.5-71.5); PLATELET COUNT (AUTO) 94 K/uL (152-348); RED BLOOD CELL COUNT(AUTO) 3.71 MIL/uL (4.06-5.63); WHITE BLOOD COUNT (AUTO) 13.2 K/uL (3.6-10.2)
[2020-03-30 05:17] LABS: ALANINE AMINOTRANSFERASE 46 U/L (16-63); ALKALINE PHOSPHATASE 133 U/L (50-136); ASPARTATE AMINOTRANSFERASE 29 U/L (15-37); BILIRUBIN,TOTAL 0.8 mg/dL (0.2-1.0); CARBON DIOXIDE 35 mmol/L (21-32); CHLORIDE 103 mmol/L (98-107); CREATININE 0.5 mg/dL (0.6-1.3); GLUCOSE 108 mg/dL (74-106); MAGNESIUM 1.9 mg/dL (1.8-2.4); PHOSPHOROUS 2.2 mg/dL (2.5-4.9); POTASSIUM 3.5 mmol/L (3.5-5.1); TOTAL PROTEIN, SERUM 6.1 g/dL (6.4-8.2); UREA NITROGEN, BLOOD 20 mg/dL (7-18)
[2020-03-30] MEDS: CEFEPIME HCL 2 G in IV DEXTROSE 5% 100 ML IV SCH ×3 (05:20→21:29)
[2020-03-30 06:07] LABS: BAND % (MANUAL) 1 % (0-10); EOSINOPHILS % (MANUAL) 1 % (0-8); LYMPHOCYTES % (MANUAL) 8 % (20-40); MONOCYTES % (MANUAL) 3 % (2-10); NEUTROPHILS % (MANUAL) 87 % (42-75)
[2020-03-30] MEDS: PANTOPRAZOLE ORAL SUSPENSION 40 MG SUSPDR.PKT GT SCH (06:11)
[2020-03-30] MEDS ORDERED: POTASSIUM CHLORIDE 20 MEQ POWDER PACKET GT ONE (07:30)
[2020-03-30] MEDS: DEXAMETHASONE SOD PHOSPHATE 10 MG INJ IV SCH (08:02)
[2020-03-30] MEDS: PROTEIN SUPPLEMENT (PROSTAT) 30 ML LIQUID GT SCH ×2 (08:02→20:31)
[2020-03-30] MEDS: AMIODARONE HCL 200 MG TABLET NG SCH ×2 (08:02→16:43)
[2020-03-30] MEDS: DOCUSATE SODIUM 100 MG/10 ML LIQUID UDC GT SCH (08:02)
[2020-03-30] MEDS: IV NS 1000 ML 1,000 ML IV PRN (08:03)
[2020-03-30 08:10] LABS: ABG BASE EXCESS 5.1 mmol/L; ABG HCO3 28.6 mmol/L; ABG PCO2 38.3 mmHg (35.0-45.0); ABG PH 7.491 (7.350-7.450); ABG PO2 61.9 mmHg (75.0-100.0); ABG SITE RIGHT RADIAL; ABG TOTAL HEMOGLOBIN 13.2 G/dL (13.5-18.0); COHb 1.5 % (0.5-1.5); MetHb 0.2 % (0.0-1.5); O2Hb 91.9 % (94.0-97.0); VENT MODE VENT - A/C; VT, ABG 550 mL
[2020-03-30] MEDS: QUETIAPINE FUMARATE 25 MG TABLET GT PRN ×2 (08:10→22:22)
[2020-03-30] MEDS: MORPHINE SULFATE 2 MG/1 ML DISP.SYRIN IV PRN ×3 (10:39→19:47)
[2020-03-30] MEDS: APIXABAN 5 MG TABLET NG SCH ×2 (10:41→20:29)
[2020-03-30] MEDS: VANCOMYCIN IV 1,500 MG in IV DEXTROSE 5% 500 ML IV SCH (15:03)
[2020-03-30] MEDS ORDERED: NEUTRA PHOS PACKET PO ONE (15:15)
[2020-03-30] MEDS ORDERED: NEUTRA PHOS PACKET NG ONE (15:30)
--- NOTE | 2020-03-30 20:00 | NUR ---
RECEIVED PT. AWAKE, HAS FACIAL GRIMACING MEDICATED W/ MORPHINE 2MG IVP FOR PAIN. TRACH TO VENT W/ SETTINGS OF AC-26, TV-550, FIO2-65%, PEEP-+8 W/ O2 SAT OF 95%. SUCTIONED VIA TRACH & ORALLY W/ MINIMAL TANNISH THICK MUCOUS.G-TUBE INTACT CHECKED PLACEMENT & CHECKED RESDUAL 5CC NOTED. IVF NS @ 50CC/HR ON FUENTES PICC LINE. AFEBRILE.REPOSITIONED W/ HOB ELEVATED.
[2020-03-31] VITALS (23 sets, daily range): BP systolic 90–136; BP diastolic 58–79
--- NOTE | 2020-03-31 | NUR ---
ngt residual checked 5cc noted, cont tube fdg.
[2020-03-31] MEDS: MORPHINE SULFATE 2 MG/1 ML DISP.SYRIN IV PRN ×2 (03:39→08:02)
--- NOTE | 2020-03-31 04:30 | NUR ---
AM CARE DONE. ORAL CARE & TRACH CARE DONE. CLEANED G-TUBE & DRSG APPLIED. REPOSITIONED PT W/ HOB ELEVATED.
[2020-03-31 05:11] LABS: BASOPHILS % (AUTO) 0.1 % (0.0-2.0); EOSINOPHILS # (AUTO) 0.2 K/uL (0.0-0.7); EOSINOPHILS % (AUTO) 1.2 % (0.0-7.0); HEMATOCRIT 37.8 % (36.7-47.1); HEMOGLOBIN 12.3 g/dL (12.5-16.3); LYMPHOCYTES # (AUTO) 0.6 K/uL (20.0-40.0); LYMPHOCYTES % (AUTO) 4.3 % (20.5-51.5); MEAN CORPUSCULAR HEMOGLOBIN 31.6 uug (23.8-33.4); MEAN CORPUSCULAR HGB CONC 33 g/dL (32.5-36.3); MEAN CORPUSCULAR VOLUME 96.9 fL (73.0-96.2); MONOCYTES # (AUTO) 0.8 K/uL (2.0-10.0); MONOCYTES % (AUTO) 5.1 % (0.0-11.0); NEUTROPHILS # (AUTO) 13.5 K/uL (1.8-8.9); NEUTROPHILS % (AUTO) 89.3 % (38.5-71.5); PLATELET COUNT (AUTO) 128 K/uL (152-348); WHITE BLOOD COUNT (AUTO) 15.1 K/uL (3.6-10.2)
[2020-03-31] MEDS: CEFEPIME HCL 2 G in IV DEXTROSE 5% 100 ML IV SCH ×2 (05:26→13:57)
[2020-03-31 05:30] LABS: MAGNESIUM 1.9 mg/dL (1.8-2.4); PHOSPHOROUS 3.1 mg/dL (2.5-4.9)
[2020-03-31 05:37] LABS: ALANINE AMINOTRANSFERASE 64 U/L (16-63); ALKALINE PHOSPHATASE 152 U/L (50-136); ASPARTATE AMINOTRANSFERASE 40 U/L (15-37); BILIRUBIN,DIRECT 0.5 mg/dL (0.0-0.2); CARBON DIOXIDE 35 mmol/L (21-32); CHLORIDE 103 mmol/L (98-107); CREATININE 0.5 mg/dL (0.6-1.3); FERRITIN 260 ng/mL (26-388); GLUCOSE 128 mg/dL (74-106); LACTATE DEHYDROGENASE 414 U/L (85-227); POTASSIUM 3.6 mmol/L (3.5-5.1); TOTAL PROTEIN, SERUM 6.4 g/dL (6.4-8.2); UREA NITROGEN, BLOOD 21 mg/dL (7-18)
[2020-03-31] MEDS: PANTOPRAZOLE ORAL SUSPENSION 40 MG SUSPDR.PKT GT SCH (06:05)
[2020-03-31 07:38] LABS: ABG BASE EXCESS 5.1 mmol/L; ABG HCO3 29.5 mmol/L; ABG PCO2 42.4 mmHg (35.0-45.0); ABG PO2 69.9 mmHg (75.0-100.0); ABG SITE RIGHT RADIAL; ABG TOTAL HEMOGLOBIN 13.2 G/dL (13.5-18.0); COHb 1.2 % (0.5-1.5); MetHb 0.4 % (0.0-1.5); O2Hb 93.1 % (94.0-97.0); VENT MODE VENT - A/C; VT, ABG 550 mL
[2020-03-31] MEDS: AMIODARONE HCL 200 MG TABLET NG SCH ×2 (08:01→17:10)
[2020-03-31] MEDS: QUETIAPINE FUMARATE 25 MG TABLET GT PRN (08:01)
[2020-03-31] MEDS: DEXAMETHASONE SOD PHOSPHATE 10 MG INJ IV SCH (08:01)
[2020-03-31] MEDS: APIXABAN 5 MG TABLET NG SCH ×2 (08:02→20:31)
[2020-03-31] MEDS: DOCUSATE SODIUM 100 MG/10 ML LIQUID UDC GT SCH (08:02)
[2020-03-31] MEDS: PROTEIN SUPPLEMENT (PROSTAT) 30 ML LIQUID GT SCH ×2 (08:02→20:30)
[2020-03-31] MEDS: IV NS 1000 ML 1,000 ML IV PRN (10:53)
[2020-03-31 18:11] LABS: *BILIRUBIN,URIN NEGATIVE (NEGATIVE); *BLOOD, URINE 2+ (NEGATIVE); *CLARITY,URINE CLEAR (CLEAR); *COLOR,URINE YELLOW (YELLOW); *KETONES,URINE NEGATIVE (NEGATIVE); LEUKOCYTE ESTERASE ,URINE NEGATIVE (NEGATIVE); NITRITE, URINE NEGATIVE (NEGATIVE); UGLUCOSE NEGATIVE (NEGATIVE)
--- NOTE | 2020-03-31 20:00 | NUR ---
RECEIVED PT. REMAINS ON VENT TO TRACH W/ SETTINGS OF AC-26, TV-550, FIO2-65%, PEEP-+8 W/ O2 SAT OF 100%. G-TUBE INTACT CHECKED RESIDUAL 5CC NOTED.ON TUBE FDG OF VITAL AF 1.2 @ 40CC/HR. IVF NS @ 50CC/HR ON FUENTES PICC LINE. SUCTIONED VIA TRACH & ORALLY W/ TANNISH THICK MUCOUS MOD. AMT. AFEBRILE. REPOSITIONED W/ HOB ELEVATED.
[2020-03-31 22:42] LABS: WBC,URINE NONE SEEN /HPF (0-3)
[2020-03-31 22:43] LABS: BACTERIA,URINE NONE SEEN /HPF (NONE SEEN); SQUAMOUS EPITHELIAL CELL,UR NONE SEEN /HPF (NONE SEEN)
[2020-04-01] VITALS (24 sets, daily range): BP systolic 89–135; BP diastolic 53–76
[2020-04-01] MEDS: QUETIAPINE FUMARATE 25 MG TABLET GT PRN ×2 (00:01→06:14)
[2020-04-01] MEDS: MORPHINE SULFATE 2 MG/1 ML DISP.SYRIN IV PRN ×4 (01:01→23:51)
--- NOTE | 2020-04-01 05:00 | NUR ---
AM CARE DONE. ORAL CARE DONE. TRACH CARE DONE. REPOSITIONED ON HIS W/ HOB ELEVATED. G-TUBE SITE CLEANED & DRSG APPLIED.
[2020-04-01 05:35] LABS: BASOPHILS % (AUTO) 0.2 % (0.0-2.0); EOSINOPHILS # (AUTO) 0.2 K/uL (0.0-0.7); EOSINOPHILS % (AUTO) 1.4 % (0.0-7.0); HEMATOCRIT 37.4 % (36.7-47.1); HEMOGLOBIN 12.4 g/dL (12.5-16.3); LYMPHOCYTES # (AUTO) 0.8 K/uL (20.0-40.0); LYMPHOCYTES % (AUTO) 4.5 % (20.5-51.5); MEAN CORPUSCULAR HEMOGLOBIN 32.1 uug (23.8-33.4); MEAN CORPUSCULAR HGB CONC 33 g/dL (32.5-36.3); MEAN CORPUSCULAR VOLUME 96.5 fL (73.0-96.2); MONOCYTES # (AUTO) 0.6 K/uL (2.0-10.0); MONOCYTES % (AUTO) 3.3 % (0.0-11.0); NEUTROPHILS # (AUTO) 15.2 K/uL (1.8-8.9); NEUTROPHILS % (AUTO) 90.6 % (38.5-71.5); PLATELET COUNT (AUTO) 130 K/uL (152-348); RED BLOOD CELL COUNT(AUTO) 3.88 MIL/uL (4.06-5.63); WHITE BLOOD COUNT (AUTO) 16.8 K/uL (3.6-10.2)
[2020-04-01 05:44] LABS: CARBON DIOXIDE 34 mmol/L (21-32); CHLORIDE 103 mmol/L (98-107); CREATININE 0.5 mg/dL (0.6-1.3); GLUCOSE 142 mg/dL (74-106); MAGNESIUM 1.7 mg/dL (1.8-2.4); PHOSPHOROUS 2.5 mg/dL (2.5-4.9); POTASSIUM 3.2 mmol/L (3.5-5.1); UREA NITROGEN, BLOOD 26 mg/dL (7-18)
[2020-04-01] MEDS: PANTOPRAZOLE ORAL SUSPENSION 40 MG SUSPDR.PKT GT SCH (06:13)
[2020-04-01 06:29] LABS: BAND % (MANUAL) 7 % (0-10); LYMPHOCYTES % (MANUAL) 4 % (20-40); MONOCYTES % (MANUAL) 5 % (2-10); NEUTROPHILS % (MANUAL) 84 % (42-75)
[2020-04-01] MEDS ORDERED: POTASSIUM CHLORIDE 20 MEQ POWDER PACKET GT SCH (07:30)
[2020-04-01] MEDS: IV NS 1000 ML 1,000 ML IV PRN (07:39)
[2020-04-01] MEDS: DEXAMETHASONE SOD PHOSPHATE 10 MG INJ IV SCH (08:38)
[2020-04-01] MEDS: DOCUSATE SODIUM 100 MG/10 ML LIQUID UDC GT SCH (08:39)
[2020-04-01] MEDS: MAGNESIUM SULFATE/D5W 100 ML IV SCH ×2 (08:39→10:54)
[2020-04-01] MEDS: AMIODARONE HCL 200 MG TABLET NG SCH ×2 (08:40→17:13)
[2020-04-01] MEDS: PROTEIN SUPPLEMENT (PROSTAT) 30 ML LIQUID GT SCH ×2 (08:40→20:41)
[2020-04-01] MEDS: APIXABAN 5 MG TABLET NG SCH ×2 (08:47→20:43)
[2020-04-01] MEDS ORDERED: MORPHINE SULFATE 4 MG/1 ML DISP.SYRIN IV ONE (12:13)
[2020-04-02] VITALS (24 sets, daily range): BP systolic 95–136; BP diastolic 56–80
--- NOTE | 2020-04-02 03:00 | NUR ---
Attempted FiO2 50%; immediately SpO2 below 90%; returned to prior.
[2020-04-02] MEDS: MORPHINE SULFATE 2 MG/1 ML DISP.SYRIN IV PRN (04:46)
[2020-04-02 05:17] LABS: ABG BASE EXCESS 6.4 mmol/L; ABG HCO3 31.8 mmol/L; ABG PO2 56.5 mmHg (75.0-100.0); ABG SITE LEFT RADIAL; COHb 1.3 % (0.5-1.5); MetHb 0.3 % (0.0-1.5); O2Hb 88.6 % (94.0-97.0); VENT MODE VENT - A/C; VT, ABG 550 mL
[2020-04-02 05:52] LABS: BASOPHILS % (AUTO) 0.1 % (0.0-2.0); EOSINOPHILS # (AUTO) 0.1 K/uL (0.0-0.7); EOSINOPHILS % (AUTO) 0.5 % (0.0-7.0); HEMATOCRIT 35.5 % (36.7-47.1); HEMOGLOBIN 11.5 g/dL (12.5-16.3); LYMPHOCYTES # (AUTO) 0.7 K/uL (20.0-40.0); LYMPHOCYTES % (AUTO) 5.1 % (20.5-51.5); MEAN CORPUSCULAR HEMOGLOBIN 31.9 uug (23.8-33.4); MEAN CORPUSCULAR HGB CONC 32 g/dL (32.5-36.3); MEAN CORPUSCULAR VOLUME 98.8 fL (73.0-96.2); MONOCYTES # (AUTO) 0.6 K/uL (2.0-10.0); MONOCYTES % (AUTO) 4.2 % (0.0-11.0); NEUTROPHILS % (AUTO) 90.1 % (38.5-71.5); PLATELET COUNT (AUTO) 111 K/uL (152-348); RED BLOOD CELL COUNT(AUTO) 3.59 MIL/uL (4.06-5.63); WHITE BLOOD COUNT (AUTO) 14.5 K/uL (3.6-10.2)
[2020-04-02 06:00] LABS: CARBON DIOXIDE 35 mmol/L (21-32); CHLORIDE 109 mmol/L (98-107); CREATININE 0.5 mg/dL (0.6-1.3); GLUCOSE 159 mg/dL (74-106); MAGNESIUM 2.1 mg/dL (1.8-2.4); PHOSPHOROUS 2.3 mg/dL (2.5-4.9); POTASSIUM 3.8 mmol/L (3.5-5.1); UREA NITROGEN, BLOOD 30 mg/dL (7-18)
[2020-04-02] MEDS: IV NS 1000 ML 1,000 ML IV PRN (06:17)
[2020-04-02 06:40] LABS: BAND % (MANUAL) 2 % (0-10); LYMPHOCYTES % (MANUAL) 5 % (20-40); METAMYELOCYTES % 2 % (0-1); MONOCYTES % (MANUAL) 2 % (2-10); NEUTROPHILS % (MANUAL) 89 % (42-75)
[2020-04-02] MEDS: DEXAMETHASONE SOD PHOSPHATE 10 MG INJ IV SCH (07:54)
[2020-04-02] MEDS: DOCUSATE SODIUM 100 MG/10 ML LIQUID UDC GT SCH (07:54)
[2020-04-02] MEDS: PANTOPRAZOLE ORAL SUSPENSION 40 MG SUSPDR.PKT GT SCH (07:54)
[2020-04-02] MEDS: AMIODARONE HCL 200 MG TABLET NG SCH ×2 (07:55→17:30)
[2020-04-02] MEDS: APIXABAN 5 MG TABLET NG SCH ×2 (07:56→20:17)
[2020-04-02] MEDS ORDERED: POTASSIUM PHOSPHATE MM 15 MMOL in IV NORMAL SALINE 250 ML IV ONE (08:00)
[2020-04-02] MEDS: PROTEIN SUPPLEMENT (PROSTAT) 30 ML LIQUID GT SCH ×2 (08:10→20:17)
[2020-04-02] MEDS: QUETIAPINE FUMARATE 25 MG TABLET GT PRN (20:17)
[2020-04-03] VITALS (24 sets, daily range): BP systolic 73–138; BP diastolic 41–81
[2020-04-03] MEDS: MORPHINE SULFATE 2 MG/1 ML DISP.SYRIN IV PRN (02:21)
[2020-04-03] MEDS: IV NS 1000 ML 1,000 ML IV PRN ×2 (02:24→23:04)
[2020-04-03 05:26] LABS: BASOPHILS % (AUTO) 0.2 % (0.0-2.0); EOSINOPHILS # (AUTO) 0.1 K/uL (0.0-0.7); EOSINOPHILS % (AUTO) 0.6 % (0.0-7.0); HEMATOCRIT 36.8 % (36.7-47.1); HEMOGLOBIN 11.9 g/dL (12.5-16.3); LYMPHOCYTES % (AUTO) 5.1 % (20.5-51.5); MEAN CORPUSCULAR HEMOGLOBIN 31.8 uug (23.8-33.4); MEAN CORPUSCULAR HGB CONC 32 g/dL (32.5-36.3); MEAN CORPUSCULAR VOLUME 98.3 fL (73.0-96.2); MONOCYTES # (AUTO) 0.7 K/uL (2.0-10.0); MONOCYTES % (AUTO) 3.5 % (0.0-11.0); NEUTROPHILS # (AUTO) 18.4 K/uL (1.8-8.9); NEUTROPHILS % (AUTO) 90.6 % (38.5-71.5); PLATELET COUNT (AUTO) 129 K/uL (152-348); RED BLOOD CELL COUNT(AUTO) 3.74 MIL/uL (4.06-5.63); WHITE BLOOD COUNT (AUTO) 20.3 K/uL (3.6-10.2)
[2020-04-03 05:36] LABS: CARBON DIOXIDE 33 mmol/L (21-32); CHLORIDE 109 mmol/L (98-107); CREATININE 0.5 mg/dL (0.6-1.3); GLUCOSE 172 mg/dL (74-106); MAGNESIUM 1.7 mg/dL (1.8-2.4); PHOSPHOROUS 2.4 mg/dL (2.5-4.9); POTASSIUM 3.9 mmol/L (3.5-5.1); UREA NITROGEN, BLOOD 26 mg/dL (7-18)
[2020-04-03] MEDS: PANTOPRAZOLE ORAL SUSPENSION 40 MG SUSPDR.PKT GT SCH (07:35)
[2020-04-03] MEDS: AMIODARONE HCL 200 MG TABLET NG SCH ×2 (08:01→17:55)
[2020-04-03] MEDS: DEXAMETHASONE SOD PHOSPHATE 10 MG INJ IV SCH (08:01)
[2020-04-03] MEDS: APIXABAN 5 MG TABLET NG SCH ×2 (08:05→20:08)
[2020-04-03] MEDS: DOCUSATE SODIUM 100 MG/10 ML LIQUID UDC GT SCH (08:16)
[2020-04-03] MEDS: PROTEIN SUPPLEMENT (PROSTAT) 30 ML LIQUID GT SCH ×2 (08:16→21:03)
[2020-04-03] MEDS: MAGNESIUM SULFATE/D5W 100 ML IV SCH ×2 (08:42→09:22)
[2020-04-03] MEDS ORDERED: POTASSIUM PHOSPHATE MM 15 MMOL in IV NORMAL SALINE 250 ML IV ONE (09:00)
[2020-04-03] MEDS ORDERED: VITAL AF 1.2 1,000 ML LIQUID GT PRN (09:00)
--- NOTE | 2020-04-03 12:22 | NUR ---
Notified Dr. Beckwith of mild bleeding from paz catheter. Instructions received to hold eliquis today.
[2020-04-03] MEDS ORDERED: VANCOMYCIN IV 1,500 MG in IV DEXTROSE 5% 500 ML IV SCH (16:00)
[2020-04-03] MEDS: VANCOMYCIN FOR PO/GT/NG USE PO SCH ×2 (17:56→21:03)
[2020-04-03] MEDS: CEFEPIME HCL 2 G in IV DEXTROSE 5% 100 ML IV SCH (17:59)
[2020-04-03] MEDS: VANCOMYCIN IV 1,500 MG in IV DEXTROSE 5% 500 ML IV SCH (17:59)
--- NOTE | 2020-04-03 19:00 | NUR ---
Received patient in bed awake and alert. patient has a Shiley 8 trach to vent AC28, vT 550, Fio2 65%, PEEP8. FUENTES PICC, no drips running. PEG tube present and patent. Vital AF 1.2 feeding running @40ml/hr. [place] present draining clear yellow urine with red sediment.
[2020-04-03 20:22] LABS: *BILIRUBIN,URIN NEGATIVE (NEGATIVE); *BLOOD, URINE 3+ (NEGATIVE); *COLOR,URINE YELLOW (YELLOW); *KETONES,URINE NEGATIVE (NEGATIVE); LEUKOCYTE ESTERASE ,URINE NEGATIVE (NEGATIVE); NITRITE, URINE NEGATIVE (NEGATIVE); UGLUCOSE NEGATIVE (NEGATIVE)
[2020-04-03 20:33] LABS: *CLARITY,URINE SLIGHTLY CLOUDY (CLEAR); RBC,URINE 80-100 /HPF (0-3)
[2020-04-03 20:34] LABS: BACTERIA,URINE FEW /HPF (NONE SEEN); SQUAMOUS EPITHELIAL CELL,UR FEW /HPF (NONE SEEN)
--- NOTE | 2020-04-03 21:00 | NUR ---
Due to blood in the urine earlier in the day, Eliquis is being held.
[2020-04-03] MEDS: QUETIAPINE FUMARATE 25 MG TABLET GT PRN (21:05)
[2020-04-03] MEDS ORDERED: CEFEPIME HCL 1 G in IV DEXTROSE 5% 50 ML IV SCH (22:00)
[2020-04-04] VITALS (24 sets, daily range): BP systolic 97–120; BP diastolic 55–70
[2020-04-04] MEDS: CEFEPIME HCL 2 G in IV DEXTROSE 5% 100 ML IV SCH ×3 (01:04→17:16)
[2020-04-04 05:00] LABS: BASOPHILS % (AUTO) 0.1 % (0.0-2.0); EOSINOPHILS # (AUTO) 0.3 K/uL (0.0-0.7); EOSINOPHILS % (AUTO) 2.2 % (0.0-7.0); HEMATOCRIT 33.8 % (36.7-47.1); HEMOGLOBIN 11.1 g/dL (12.5-16.3); LYMPHOCYTES # (AUTO) 0.9 K/uL (20.0-40.0); LYMPHOCYTES % (AUTO) 6.3 % (20.5-51.5); MEAN CORPUSCULAR HGB CONC 33 g/dL (32.5-36.3); MEAN CORPUSCULAR VOLUME 97.9 fL (73.0-96.2); MONOCYTES # (AUTO) 0.6 K/uL (2.0-10.0); MONOCYTES % (AUTO) 4.5 % (0.0-11.0); NEUTROPHILS # (AUTO) 11.7 K/uL (1.8-8.9); NEUTROPHILS % (AUTO) 86.9 % (38.5-71.5); PLATELET COUNT (AUTO) 87 K/uL (152-348); RED BLOOD CELL COUNT(AUTO) 3.46 MIL/uL (4.06-5.63); WHITE BLOOD COUNT (AUTO) 13.5 K/uL (3.6-10.2)
[2020-04-04 05:22] LABS: CARBON DIOXIDE 32 mmol/L (21-32); CHLORIDE 106 mmol/L (98-107); CREATININE 0.4 mg/dL (0.6-1.3); GLUCOSE 127 mg/dL (74-106); MAGNESIUM 1.9 mg/dL (1.8-2.4); PHOSPHOROUS 3.1 mg/dL (2.5-4.9); POTASSIUM 3.9 mmol/L (3.5-5.1); UREA NITROGEN, BLOOD 22 mg/dL (7-18)
[2020-04-04 06:18] LABS: ABG HCO3 31.9 mmol/L; ABG PCO2 52.2 mmHg (35.0-45.0); ABG PH 7.404 (7.350-7.450); ABG PO2 65.6 mmHg (75.0-100.0); ABG SITE LEFT RADIAL; ABG TOTAL HEMOGLOBIN 11.7 G/dL (13.5-18.0); COHb 1.2 % (0.5-1.5); MetHb 0.3 % (0.0-1.5); O2Hb 92.2 % (94.0-97.0); VENT MODE VENT - A/C; VT, ABG 550 mL
[2020-04-04 06:29] LABS: BAND % (MANUAL) 6 % (0-10); EOSINOPHILS % (MANUAL) 1 % (0-8); LYMPHOCYTES % (MANUAL) 2 % (20-40); MONOCYTES % (MANUAL) 1 % (2-10); NEUTROPHILS % (MANUAL) 90 % (42-75)
[2020-04-04] MEDS: PANTOPRAZOLE ORAL SUSPENSION 40 MG SUSPDR.PKT GT SCH (06:49)
[2020-04-04] MEDS: DEXAMETHASONE SOD PHOSPHATE 10 MG INJ IV SCH (07:47)
[2020-04-04] MEDS: VANCOMYCIN FOR PO/GT/NG USE PO SCH ×4 (07:53→20:23)
[2020-04-04] MEDS: AMIODARONE HCL 200 MG TABLET NG SCH ×2 (07:54→17:17)
[2020-04-04] MEDS: PROTEIN SUPPLEMENT (PROSTAT) 30 ML LIQUID GT SCH ×2 (07:56→20:23)
[2020-04-04] MEDS: DOCUSATE SODIUM 100 MG/10 ML LIQUID UDC GT SCH (07:57)
[2020-04-04] MEDS: VANCOMYCIN IV 1,500 MG in IV DEXTROSE 5% 500 ML IV SCH (11:53)
--- NOTE | 2020-04-04 15:44 | NUR ---
Avionics Electronics Technician notes: Patient's son Mike, , requested a letter stating patient's condition and location. Letter was prepared, reviewed and signed by Finance Advisor Janine.
--- NOTE | 2020-04-04 16:27 | NUR ---
Operations Management Professionals Note: This SW called Mike Menas [phone] and informed him that the letter he requested was ready. Mike stated that he would stop by the hospital to pick it up. SW instructed Mike that SW would leave the letter at the security desk in the lobby, and he would be able to pick it up from there. Mike expressed understanding and agreement.
--- NOTE | 2020-04-04 19:15 | NUR ---
received awake , calm , cooperative , on feeding of vital af at 40 ml , no residual noted , no fever , iv and paz intact , ac 26 tv 550 8 and 65 % , ns at 50 ml
[2020-04-04] MEDS: QUETIAPINE FUMARATE 25 MG TABLET GT PRN (21:40)
[2020-04-04] MEDS: IV NS 1000 ML 1,000 ML IV PRN (21:54)
[2020-04-05] VITALS (22 sets, daily range): BP systolic 93–123; BP diastolic 53–79
[2020-04-05] MEDS: CEFEPIME HCL 2 G in IV DEXTROSE 5% 100 ML IV SCH ×3 (00:49→18:10)
[2020-04-05] MEDS: VANCOMYCIN IV 1,500 MG in IV DEXTROSE 5% 500 ML IV SCH (04:53)
[2020-04-05 05:02] LABS: BASOPHILS % (AUTO) 0.2 % (0.0-2.0); EOSINOPHILS # (AUTO) 0.2 K/uL (0.0-0.7); EOSINOPHILS % (AUTO) 1.2 % (0.0-7.0); HEMATOCRIT 35.4 % (36.7-47.1); HEMOGLOBIN 11.7 g/dL (12.5-16.3); LYMPHOCYTES # (AUTO) 0.9 K/uL (20.0-40.0); LYMPHOCYTES % (AUTO) 7.4 % (20.5-51.5); MEAN CORPUSCULAR HEMOGLOBIN 32.3 uug (23.8-33.4); MEAN CORPUSCULAR HGB CONC 33 g/dL (32.5-36.3); MEAN CORPUSCULAR VOLUME 97.5 fL (73.0-96.2); MONOCYTES # (AUTO) 0.6 K/uL (2.0-10.0); MONOCYTES % (AUTO) 4.7 % (0.0-11.0); NEUTROPHILS # (AUTO) 11.1 K/uL (1.8-8.9); NEUTROPHILS % (AUTO) 86.5 % (38.5-71.5); PLATELET COUNT (AUTO) 113 K/uL (152-348); RED BLOOD CELL COUNT(AUTO) 3.63 MIL/uL (4.06-5.63); WHITE BLOOD COUNT (AUTO) 12.9 K/uL (3.6-10.2)
[2020-04-05 05:25] LABS: CARBON DIOXIDE 33 mmol/L (21-32); CHLORIDE 104 mmol/L (98-107); CREATININE 0.5 mg/dL (0.6-1.3); FERRITIN 240 ng/mL (26-388); GLUCOSE 110 mg/dL (74-106); LACTATE DEHYDROGENASE 398 U/L (85-227); MAGNESIUM 1.9 mg/dL (1.8-2.4); PHOSPHOROUS 2.6 mg/dL (2.5-4.9); POTASSIUM 3.6 mmol/L (3.5-5.1); UREA NITROGEN, BLOOD 22 mg/dL (7-18)
--- NOTE | 2020-04-05 06:00 | NUR ---
awake , able to follow simple command , SR , NO FEVER , TF HELD PER ORDER X 22 HOURS , NO RSIDUAL NOTED , IV AND [place] INTACT , NO FEVER , SAME VENT SETTINGS
[2020-04-05] MEDS: PANTOPRAZOLE ORAL SUSPENSION 40 MG SUSPDR.PKT GT SCH (06:27)
[2020-04-05] MEDS: DEXAMETHASONE SOD PHOSPHATE 10 MG INJ IV SCH (08:33)
[2020-04-05] MEDS: DOCUSATE SODIUM 100 MG/10 ML LIQUID UDC GT SCH (08:34)
[2020-04-05] MEDS: VANCOMYCIN FOR PO/GT/NG USE PO SCH ×4 (08:34→20:12)
[2020-04-05] MEDS: AMIODARONE HCL 200 MG TABLET NG SCH ×2 (08:35→18:10)
[2020-04-05] MEDS: PROTEIN SUPPLEMENT (PROSTAT) 30 ML LIQUID GT SCH ×2 (08:37→20:08)
--- NOTE | 2020-04-05 08:47 | NUR ---
Doctor Gottlieb in the unit to see patient, will need to follow up with [facility] or [facility] for requirements of transfer. Dr. Stephenson in the unit earlier held IVF due to water flushes and tube feed tolerance. Doctor Gottlieb suggested to put patient back on Eliquis plt have gone back up.
[2020-04-05] MEDS: MORPHINE SULFATE 4 MG/1 ML DISP.SYRIN IV PRN ×2 (09:44→19:38)
[2020-04-05] MEDS: APIXABAN 5 MG TABLET NG SCH ×2 (15:08→20:11)
--- NOTE | 2020-04-05 15:26 | NUR ---
Yue Marie called unit from case management and can be transferred to [facility]. Informed that Luisito VASQUEZ and Dr Gottlieb both agree to transfer patient to [facility] for further care. Waiting for Insurance approval at this time and will call me back for transfer clearance.
[2020-04-05] MEDS ORDERED: CEFE2PIG2 IV (15:53)
[2020-04-05] MEDS ORDERED: PROT30LI GT (15:53)
[2020-04-05] MEDS ORDERED: VANC1PIG IV (15:53)
[2020-04-05] MEDS ORDERED: PANT40SU2 GT (15:53)
[2020-04-05] MEDS ORDERED: AMIO200T6 NG (15:53)
[2020-04-05] MEDS ORDERED: NUT.237L65 GT (15:53)
[2020-04-05] MEDS ORDERED: DEXA10VI IV (15:53)
[2020-04-05] MEDS ORDERED: VANC500V PO (15:53)
[2020-04-05] MEDS ORDERED: APIX5TAB NG (15:53)
--- NOTE | 2020-04-05 17:34 | NUR ---
Called [place] to give report that was given per case management [phone] in room 40A. no answer from the phone that wa given. attempted 3 times no answer and unable to leave message. Still waiting for clearance from insurance, case management to call back for official clearance.
--- NOTE | 2020-04-05 18:06 | NUR ---
called [facility] to give report. Spoke to Hernandez MUKHERJEE at [phone].
--- NOTE | 2020-04-05 18:35 | NUR ---
complex case manager called for ETA for transport. [facility]. ETA is 2130. Number for ambulance is [phone].
--- NOTE | 2020-04-05 22:59 | NUR ---
Patient transferred via [facility] to [facility].
[2020-04-06] MEDS ORDERED: DEXAMETHASONE SOD PHOSPHATE 10 MG INJ IV SCH (09:00)
== END 2020-04-05 22:59 | DRG 4 ==
LOC: ER 04:43 → TRANSITION 14:44 → TELE3 02-25 15:40 → CCU 03-01 20:45
PROVIDERS: ADMIT Registered Nurse; ATTEND Nurse Practitioner Acute Care
PROC: XW033E5 Introduction of Remdesivir Anti-infective into Peripheral Vein, Percutaneous Approach, New Technology Group 5 (ICD-10-PCS; principal; 2020-02-21)
PROC: 5A09457 Assistance with Respiratory Ventilation, 24-96 Consecutive Hours, Continuous Positive Airway Pressure (ICD-10-PCS; 2020-02-27)
PROC: 5A1955Z Respiratory Ventilation, Greater than 96 Consecutive Hours (ICD-10-PCS; 2020-03-02)
PROC: 0BH17EZ Insertion of Endotracheal Airway into Trachea, Via Natural or Artificial Opening (ICD-10-PCS; 2020-03-02)
PROC: 05H533Z Insertion of Infusion Device into Right Subclavian Vein, Percutaneous Approach (ICD-10-PCS; 2020-03-03)
PROC: B546ZZA Ultrasonography of Right Subclavian Vein, Guidance (ICD-10-PCS; 2020-03-03)
PROC: 0DH63UZ Insertion of Feeding Device into Stomach, Percutaneous Approach (ICD-10-PCS; 2020-03-20)
PROC: 0B113F4 Bypass Trachea to Cutaneous with Tracheostomy Device, Percutaneous Approach (ICD-10-PCS; 2020-03-23)
PROC: 0BJ08ZZ Inspection of Tracheobronchial Tree, Via Natural or Artificial Opening Endoscopic (ICD-10-PCS; 2020-03-23)
DX: A41.89 Other specified sepsis (principal); U07.1 COVID-19; J96.01 Acute respiratory failure with hypoxia; J12.82 Pneumonia due to coronavirus disease 2019; R65.21 Severe sepsis with septic shock; J15.9 Unspecified bacterial pneumonia; E43 Unspecified severe protein-calorie malnutrition; G92 Toxic encephalopathy; J96.02 Acute respiratory failure with hypercapnia; I26.99 Other pulmonary embolism without acute cor pulmonale; D68.69 Other thrombophilia; E87.3 Alkalosis; B37.49 Other urogenital candidiasis; E87.1 Hypo-osmolality and hyponatremia; I47.1 Supraventricular tachycardia; D50.9 Iron deficiency anemia, unspecified; E83.39 Other disorders of phosphorus metabolism; E83.42 Hypomagnesemia; E87.6 Hypokalemia; F32.9 Major depressive disorder, single episode, unspecified; F41.9 Anxiety disorder, unspecified; H91.90 Unspecified hearing loss, unspecified ear; I10 Essential (primary) hypertension; I48.0 Paroxysmal atrial fibrillation; R13.10 Dysphagia, unspecified; Z79.82 Long term (current) use of aspirin; K21.9 Gastro-esophageal reflux disease without esophagitis; E11.9 Type 2 diabetes mellitus without complications; E66.9 Obesity, unspecified; Z68.33 Body mass index [BMI] 33.0-33.9, adult; S09.90XA Unspecified injury of head, initial encounter; W19.XXXA Unspecified fall, initial encounter; Y93.9 Activity, unspecified; Y92.230 Patient room in hospital as the place of occurrence of the external cause; K29.70 Gastritis, unspecified, without bleeding
CPT/HCPCS: 36415; 36600; 70030-TC; 70450; 71045; 83605; 83615; 83735; 84100; 84300; 84443; 84478; 85025; 85610; 85730; 86140; 86850; 86900; 86901; 87040; 87070; 87077; 87086; 93005; 94002; 94003; 94660; A4217; A4663; G0378; J0133; J0282; J0330; J0456; J0690; J0692; J0696; J1100; J1580; J1650; J2060; J2248; J2270; J2370; J2405; J3370; J3475; J3490; J3535; J7030; J7040; J7042; J7050; J7060; J7120; J8499; Q0144; U0003